=== PATIENT | female | born 1950 | race Caucasian/White ===

== ENCOUNTER 2018-02-14 09:44 | Day surgery (SDC) | payer OTHER ==
[2018-02-08 13:07] LABS: Absolute Lymphocytes (CBC) 1.9 K/uL (0.7-4.9); Absolute Monocytes 0.3 K/uL (0.1-1.3); Absolute Neutrophil 4.7 K/uL (1.8-8.0); Basophils % 0.9 % (0-1.3); Eosinophils % 0.9 % (0-4.4); Hematocrit 39.2 % (36.0-45.0); Lymphocytes % 27.4 % (15.3-44.8); MPV 9.7 fL (7.6-11.3); Monocytes % 4.9 % (3.3-12.3)
[2018-02-08 13:21] LABS: Potassium 3.4 mmol/L (3.5-5.1)
--- NOTE | 2018-02-08 13:24 | RAD REPORT ---
EXAM DESCRIPTION: RAD - Chest Pa And Lat (2 Views) - 02/08/2018 1:08 pm CLINICAL HISTORY: preop Chest pain. COMPARISON: Chest Pa And Lat (2 Views) dated 08/15/2017; CHEST PA AND LAT 2 VIEW dated 11/02/2011 FINDINGS: The lungs are clear. Moderate cardiomegaly. No displaced fractures. Screw is present in th e right sphenoid. IMPRESSION: Moderate cardiomegaly.
--- NOTE | 2018-02-08 18:37 | EKG ---
Test Date: 2018-02-08 Test Time: 12:55:54 Boot And Shoe Repairman: KARISSA MEASUREMENT RESULTS: Intervals: Rate: 63 AL: 162 QRSD: 90 QT: 444 QTc: 454 [place]: P: 50 AL: 162 QRS: 33 T: 62 INTERPRETIVE STATEMENTS: Normal sinus rhythm Normal ECG No previous ECG available for comparison Electronically Signed On 02-08-18 18:36:13 CDT by Rafael Key
[2018-02-14] MEDS ORDERED: Ringers Lactate 1,000 ML IV ONE (10:09)
[2018-02-14] MEDS ORDERED: CEFAZOLIN/SWI 1gm 1 GM/10 ML SYR ONE (10:09)
[2018-02-14] MEDS ORDERED: BUPIVACAINE 0.5% PF 10 ML VIAL ONE (10:11)
[2018-02-14] MEDS ORDERED: PROPOFOL 200 MG/20 ML VIAL IV ONE (10:33)
[2018-02-14] MEDS ORDERED: LIDOCAINE 1% MPF 5 ML VIAL ONE (10:34)
[2018-02-14] MEDS ORDERED: FENTANYL CITR 100 MCG/2 ML ONE (10:35)
[2018-02-14] MEDS ORDERED: ONDANSETRON HCL 40 MG/20 ML VIAL ONE (10:35)
[2018-02-14] MEDS ORDERED: GLYCOPYRROLATE 0.2 MG/ML SYR ONE (11:11)
[2018-02-14] MEDS ORDERED: EPHEDRINE SULF 50 MG/10 ML SYR ONE (11:14)
--- NOTE | 2018-02-14 11:55 | P.BOP ---
Preoperative diagnosis: tender recurrent back large subq mass Postoperative diagnosis: same, intramuscular mass Primary procedure: 1. Excisional biopsy tender recurrent back large intramuscular mass Secondary procedure: 5.5 x 7 x 2 cm Other procedure(s): 2. Layer closure Estimated blood loss: <20cc Specimen: mass with fascia of muscle Findings: deep mass involving fascia of muscle, partially intramuscular Anesthesia: General Complications: None Transferred to: Recovery Room Condition: Good
[2018-02-14] MEDS: MEPERIDINE HCL 50 MG/ML AMP ONE ×3 (12:00→12:10)
--- NOTE | 2018-02-14 23:27 | OP ---
Date of Procedure: 02/14/2018 Surgeon: Giancarlo Rausch MD Preoperative Diagnosis: Tender recurrent back large subcutaneous mass. Postoperative Diagnosis: Tender recurrent back large intramuscular mass. Procedures: 1.Excisional biopsy of a tender recurrent back large intramuscular mass about 5.5 x 7 x 2 cm. 2.A layered closure. Specimen: Mass with fascia of the muscle. Findings: This mass is started from the subcutaneous tissue, goes into the muscle, attached to the f ascia of the muscle, and then goes to the muscle and the back region. We were able to remove the mas s with the fascia and closed this in layers. Anesthesia: General, plus local. Indications: This is a case of a 67-year-old patient with a tender mass in the upper back pain. She claims that she many years ago it was excised and is coming back partially where the previous incisi on and partially in a new area. It is growing fast and she wants that excised. Benefits, alternativ es, and risks of excision were fully explained to the patient, which include but are not limited to i nfection, bleeding, damage to adjacent structures, anesthesia complication, recurrence, GA, and even . She also understands this may not relieve any symptoms, she might need more than one surgical intervention. She understood, signed a consent. Procedure In Detail: The area of concern was marked by me and the patient in the holding room. The patient was brought to the operating room, placed in supine position. Anesthesia was done without co mplication. The patient was placed in lateral decubitus position with proper protection. A time-out was called. The back area was prepped and draped in usual sterile fashion. A curvilinear incision was made in the skin to include the skin attached to it and the previous scar. Incision was carried down to deep subcutaneous tissue. We noticed this mass starting in the subcutaneous tissue, but it g oes between the muscle fiber penetrating into the fascia into the muscle fiber. We were able to care fully split that the muscle fiber without cutting it. We removed this mass from the intramuscular re gion, but we have to remove the fascia with it. The mass was completely excised. The area was irrig ated leaving a large gap in that area. So, we were trying to close this in layers. We used 0 chromi c to approximate the muscle, approximate the other part of the fascia, then subcutaneous tissue. I shimon mai closed the skin in a mattress suture fashion with 2-0 nylon multiple times. The patient tolerate d the procedure well. Sponge count and instrument counts were correct. The patient was sent to [facility] in stable condition. ZULEIMA/JOHNATHAN Voice ID: [id number] Report ID: [id number]
--- NOTE | 2018-02-14 23:33 | DS ---
Date of Discharge: 02/14/2018 Diagnosis: Tender recurrent large intramuscular mass in the back. Procedure: Excisional biopsy of tender intramuscular mass on the back with layered closure. Disposition: Home. Activity: As tolerated. No heavy lifting. Followup: Follow up in my office in 1 week. Call for appointment [phone]. Keep area dry for 48 ho urs, then may shower. Medications: Include Bactrim DS p.o. b.i.d. and Tylenol No. 3 q.4 hours p.r.n. pain. ZULEIMA/JOHNATHAN Voice ID: [id number] Report ID: [id number]
== END 2018-02-14 14:06 | disposition home or self-care (01) ==
LOC: OR 09:44
PROVIDERS: ATTEND Surgery
PROC: 0JB70ZZ Excision of Back Subcutaneous Tissue and Fascia, Open Approach (ICD-10-PCS; principal; 2018-02-14 12:00)
DX: D17.9 Benign lipomatous neoplasm, unspecified (principal); I10 Essential (primary) hypertension; Z82.49 Family history of ischemic heart disease and other diseases of the circulatory system
CPT/HCPCS: 21933; 36415; 71046; 80048; 85025; 88304; 93005; J0690; J2175; J2405; J3010; 88305

== ENCOUNTER 2019-11-18 09:17 | Inpatient (IN) | payer OTHER ==
--- NOTE | 2019-11-19 10:22 | R.PREADM ---
SCREENING DATE AND TIME 11/18/2019 10:13 (CDT) ANTICIPATED REHAB ADMISSION DATE 11/20/2019 REFERRING FACILITY [facility] REFERRAL DATE AND TIME 11/15/2019 12:00 (CDT) REFERRAL ROOM# [facility] 91J ACUTE ADMIT DATE 11/13/2019 HOSPITALIZED IN LAST 60 DAYS? No. Previous Rehabilitation(s): No. 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 Omar Barone M.D. MR# [id number] NAME JULIANN MERRITT ADDRESS [address] [place] [address] [facility] [id number] DATE OF 1950 AGE 69 SSN# [id number] GENDER female MARITAL STATUS RACE white PREF. LANGUAGE (IF NON-BAHRAINI) Armenian ADMIT FROM 02 - [facility] PRE-HOSPITAL LIVING SETTING 01 - Home (private home/apt. board/care, assisted living, shelter, transitional living) HOME TYPE AND DETAILS Type of home: single family house # of steps to enter the residence: 0 # of levels in the residence: 1 # of steps within the residence: 1 PRE-HOSPITAL LIVING WITH Other FAMILY SUPPORT Yes PRIMARY FAMILY CONTACT NAME Promise Simms PRIMARY FAMILY CONTACT PHONE PRIMARY FAMILY CONTACT RELATIONSHIP Daughter IS PRIMARY FAMILY CONTACT AUTH. REP.? no 1ST EMERGENCY CONTACT Promise Simms 1ST CONTACT PHONE 1ST CONTACT RELATIONSHIP Daughter IS 1ST CONTACT AUTH. REP.? no PHONE 2ND CONTACT ON ADM.? no PATIENT EMPLOYMENT STATUS Retired (for age) PATIENT EMPLOYER No Employer PAYOR INFORMATION: 1ST PAYOR NAME MEDICARE 1ST PAYOR PHONE 1ST PAYOR INJURY/ILLNESS DUE TO ACCIDENT? No ANOTHER [employer] RESPONSIBLE? No PRIMARY REHAB/ACUTE DIAGNOSIS: ONSET DATE 11/13/2019 REHAB IMPAIRMENT CATEGORY (ROSALES): 01 Stroke (STR) MEETS 60% rule AFFECTED EXTREMITIES: RLE, and RUE PRIMARY DIAGNOSIS-RELATED SURGERIES: No surgeries related to the primary diagnosis were performed. SUMMARY OF ACUTE HOSPITALIZATION: Pt. is a 69 yo Right-handed white female. On 11/13/2019 Pt. presented to [facility] with sudden onset of right-side weakness. Her impairment category is Stroke 01 - Right Body (Left Brain) (01.2). Pre-morbidly, Pt. was independent/mod-I in Transfers Control, Locomotion, and Self-Care; and she had good Balance, Safety Awareness, Social Cognition, and Communication. Currently, she has deficits of Transfers Control, Balance, Safety Awareness, Locomotion, Self-Care, S ocial Cognition, and Communication. Pt. is now referred to [facility] for acute in-patient rehabilitation in order to maximize patient's functional independence in activities of daily living, strength, ROM, and mobi lity. Patient has realistic goal of being discharged at assistance level 6-Елена to reside at Home with [facility] er. PAST MEDICAL HISTORY depression HTN arthritis thyroid nodule PAST SURGICAL HISTORY: Cholecystectomy HYSTERECTOMY MEDICATION ALLERGIES: CODEINE ENVIRONMENTAL ALLERGIES: None Known - Substance Allergies None Known - Other Allergies None Known CODE STATUS: Full code WEIGHT/HEIGHT/BMI: WEIGHT 135 lbs HEIGHT 5' 1" BMI 25.5 DIET: - Diet Type Regular - Diet - Solid Texture Regular - Diet - Liquid Texture Regular - Tube Feed N/A REVIEW OF SYSTEMS: - Gen Alert and awake Lying in bed No apparent distress Oriented to: person, time, and place - Vital Signs Vital signs stable, afebrile - CVS RRR VITAL SIGNS Temperature: 97.8 F SBP/DBP: 145/78 Pulse: 75 Resp: 20 Vital signs stable, afebrile MEDICATIONS/TREATMENT: Other- See attached MAR (Medication Administration Record). CURRENT SPHINCTER CONTROL: Pre-hospital bladder status: continent Pre-hospital bowel status: continent CURRENT LOCOMOTION STATUS: distance walked 50 feet DETAILED CURRENT FUNCTIONAL STATUS: - Walking score based on distance walked: 1(<=50ft) QI SCORES: - Self-Care A. Eating 05-Setup or clean-up assistance B. Oral hygiene 05-Setup or clean-up assistance C. Toileting hygiene 04-Supervision or touching assistance E. Shower/bathe self 03-Partial/moderate assistance F. Upper body dressing 05-Setup or clean-up assistance G. Lower body dressing 03-Partial/moderate assistance H. Putting on/taking off footwear 03-Partial/moderate assistance - Mobility A. Roll left and right 04-Supervision or touching assistance B. Sit to lying 03-Partial/moderate assistance C. Lying to sitting on side of bed 03-Partial/moderate assistance D. Sit to stand 03-Partial/moderate assistance E. Chair/[id number] transfer 03-Partial/moderate assistance F. Toilet transfer 03-Partial/moderate assistance G. Car transfer 88-Not attempted due to medical condition or safety concerns I. Walk 10 feet 04-Supervision or touching assistance J. Walk 50 feet with two turns 04-Supervision or touching assistance K. Walk 150 feet 88-Not attempted due to medical condition or safety concerns L. Walking 10 feet on uneven surfaces 88-Not attempted due to medical condition or safety concerns M. 1 step (curb) 88-Not attempted due to medical condition or safety concerns N. 4 steps 88-Not attempted due to medical condition or safety concerns O. 12 steps 88-Not attempted due to medical condition or safety concerns P. Picking up object 88-Not attempted due to medical condition or safety concerns - Bladder and Bowel Bladder continence 0-Always continent Bowel continence 0-Always continent - Endurance Poor - Balance Poor - Safety Awareness Poor CURRENT FUNC. DEFICITS: Self-Care, Mobility, Endurance, Balance, and Safety Awareness HISTORY OF FALLS. HAS THE PATIENT HAD TWO OR MORE FALLS IN THE PAST YEAR OR ANY FALL WITH INJURY IN T HE PAST YEAR?: Yes PRIOR SURGERY. DID THE PATIENT HAVE MAJOR SURGERY DURING THE 100 DAYS PRIOR TO ADMISSION?: No THERAPY NOTES FROM ACUTE CARE: Attached. SPECIAL NEEDS: - Safety Concerns Skin breakdown precautions needed due to skin breakdown risk PRECAUTIONS: - Weight Bearing Precaution WBAT both LE PATIENT NEEDS ACTIVE AND ONGOING THERAPEUTIC INTERVENTION OF MULTIPLE THERAPY DISCIPLINES, INCLUDING: - Occupational Therapy Cognitive Retraining. Visual Perceptual Training. - Dietary and Nutrition Adequate Nutrition. Nutritional Education. Nutritional Supplements. - Speech Therapy Cognitive Training. Expressive Language Skills. Memory Strategies. Receptive Language Skills. Speech Intelligibility Training. PATIENT NEEDS CLOSE MEDICAL SUPERVISION BY A REHABILITATION PHYSICIAN FOR: Coordination of Treatment Team PATIENT REQUIRES 24X7 REHAB NURSING FOR MEDICAL AND FUNCTIONAL MGT. OF THE FOLLOWING DEFICITS: Disease Management Medication Management Patient/Family Education Providing Safe Environment PATIENT REQUIRES INTENSIVE, COORDINATED INTERDISCIPLINARY APPROACH TO REHAB: Arranging Home Equipment/Services Discharge Planning Family Intervention/Training Bacon Slicer/Case Management PATIENT REHAB POTENTIAL: Sanjay MERRITT is able and expected to receive 3 hours of individualized therapy daily on at least 5 of ev claudia 7 days Sanjay MERRITT's prognosis for significant practical improvement within a reasonable period of time appear s Good Expected level of measurable improvement will be of a practical value to Sanjay MERRITT's functional capac ity or adaptations to impairments Has a viable Discharge Plan Medically appropriate; condition is sufficiently stable to participate in intensive rehab program DISCHARGE PLAN: - Estimated Length of Stay (days) 17. - Consensus on plan Discharge plan has not been discussed with primary caregiver. Patient/Family is in agreement with the plan. Primary caregiver is in agreement with the plan. - Patient/Family Goals Return home with assistance. - Planned Living Setting Upon Discharge Home, to live with Other. RECOMMENDED CARE LEVEL: IRF RECOMMENDATION DETAILS: Recommended Admission to Comprehensive Rehabilitation Program to Increase Functional [place] SCREENER'S COMPLETENESS CONFIRMATION: - Screening Confirmation The patient data collection on this preadmission screening form is finished PHYSICIANS REVIEW AND ADMISSION DETERMINATION Admit - Based on my review of the Pre-Admission Screening results, in my medical judgment and experie nce, I concur with the findings and recommend admission to [facility], as this patient requires an IRF level of care. SIGNATURE PANEL: Clinical Liaison - [electronically] signed by Margareth Beal RN on 11/19/2019 at 10:05 (CDT) Physician Reviewer - [electronically] signed by Dr. Omar Barone M.D. on 11/19/2019 at 10:20 (CDT )
--- OUTSIDE RECORDS SUMMARY | 2019-11-20 19:18 | XMS REPORT ---
:1950 Author Organization [facility] t Address [address] [place] [address] Care Team Providers Name Role Phone Singer LYMAN Attending Clinician Lemuel RIOS Attending Clinician Khalif RIOS Attending Clinician Khalif RIOS Admitting Clinician Problems This patient has no known problems. Allergies, Adverse Reactions, Alerts This patient has no known allergies or adverse reactions. Medications This patient has no known medications. Procedures This patient has no known procedures. Encounters Start End Encounter Admission Attending Care Care Encounter Source Date/Time Date/Time Type Type Clinicians Facility Department ID 2019-11-13 2019-11-20 [facility] WagnerShun quesada Meka [id number] 09:14:12 17:26:00 [id number] Results This patient has no known results.
--- OUTSIDE RECORDS SUMMARY | 2019-11-20 19:21 | XMS REPORT | Summary of Care ---
:1950 Author Organization [facility] - [facility] Address [address] [place] [address] Care Team Providers Name Role Phone Adin Velez Primary Care Provider Reason for Referral (Routine) Status Reason Specialty Diagnoses / Referred By Referred To Procedures Contact Contact New Request IM-CLINICAL CARDIAC Diagnoses Acute ischemic left DUSTY stroke Staton, Rubi ELECTROPHYSIOLOGY Procedures Discharge Follow-Up: Specialty Service IM-CLINICAL CARDIAC ELECTROPHYSIOLOGY; 1 [place] [address] (Routine) Status Reason Specialty Diagnoses / Referred By Contact Refe rred To Procedures Contact New Request Neurology Diagnoses Acute ischemic left DUSTY stroke Staton, Rubi Procedures CONSULT/REFERRAL NEURO PSYCH TESTING NEUROLOGY MD Israel [address], [place] [address] Phone: Other (Routine) Status Reason Specialty Diagnoses / Referred By Contact Refe rred To Procedures Contact New Request Diagnoses Acute ischemic left DUSTY stroke Staton, Rubi Staton, Rubi Procedures Discharge Follow-up: Specialty Provider RUBI STATON; Other - See Comment (next avalable ) MD Israel Wood MD [address] [place] [address] [place], [place] Phone: [phone] Fax: (Routine) Status Reason Specialty Diagnoses / Referred By Contact Refe rred To Procedures Contact New Request Diagnoses Acute ischemic left DUSTY stroke Rubi Staton Adin Velez Procedures Discharge Follow-up: PCP ADIN VELEZ; 3-5 Days MD Israel [address] [place] [phone] Phone: Phone: Fax: (Routine) Status Reason Specialty Diagnoses / Referred By Contact Refe rred To Procedures Contact New Request EEG Diagnoses Right sided weakness Tim Cuadra MD Procedures Electroencephalogram (EEG) - Duration of test: 20-[address] [place] [phone] Phone: MRI/CAT Scan (STAT) Status Reason Specialty Diagnoses / Referred By Referred To Procedures Contact Contact New Request Diagnostic Diagnoses Right sided weakness Tim Cuadra MD Radiology Procedures MR BRAIN WO CONTRAST [address] [place] [address] MRI/CAT Scan (STAT) Status Reason Specialty Diagnoses / Referred By Referred To Procedures Contact Contact New Request Diagnostic Diagnoses Confusion Onel Hdez MD Radiology Procedures CT ANGIOGRAM HEAD [address] [place] [address] MRI/CAT Scan (STAT) Status Reason Specialty Diagnoses / Referred By Referred To Procedures Contact Contact New Request Diagnostic Diagnoses Confusion Onel Hdez MD Radiology Procedures CT ANGIOGRAM NECK [address] [place] [address] Radiology Services (STAT) Status Reason Specialty Diagnoses / Referred By Referred To Procedures Contact Contact New Request Diagnostic Diagnoses Pain of right hip joint Shun Wagner, Radiology Procedures XR HIPS 3 VW BILATERAL DO [address] [facility] [address] [place] [address] MRI/CAT Scan (Routine) Status Reason Specialty Diagnoses / Referred By Referred To Procedures Contact Contact New Request Diagnostic Diagnoses Confusion Shun Wagner, Radiology Procedures CT HEAD WO CONTRAST DO [address] [place] [address]. [address] [place] [address] Radiology Services (Routine) Status Reason Specialty Diagnoses / Referred By Referred To Procedures Contact Contact New Request Diagnostic Diagnoses Confusion Shun Wagner, Radiology Procedures XR CHEST 1 VW DO [address] [place] [address]. [address] [place] [address] Reason for Visit Reason Comments Flank Pain right Auth/Cert Status Reason Specialty Diagnoses / Referred By Referred To Procedures Contact Contact Emergency Medicine Adc Em ergency Dept [address] [facility] [address] Fax: Encounter Details Date Type Department Care Team Description 11/13/2019 - Hospital Encounter Acute Care for the Arlette Wagner, [address] [place], [place] [id number] Confusion 11/20/2019 Elderly (FAUZIA 11D) Onel Hdez MD [address] [place] [phone] 2 [facility] Tim Cuadra MD [address] [place] [address]. [place] [address] [place] [address] Allergies Active Allergy Reactions Severity Noted Date Comments Codeine Rash 05/20/2015 documented as of this encounter (statuses as of 11/20/2019) Medications Medication Sig Dispensed Refills Start Date End Date Status Cholecalciferol, Take by 0 Act guerda Vitamin D3, mouth. (VITAMIN D3) 2,000 unit capsule Diclofenac Sodium 1 Apply 1 g to 0 Active % gel area(s) 2 (two) times daily as needed. aspirin 81 mg Take 1 tablet 60 tablet 4 11/21/2019 A ctive chewable by mouth tabletIndications: daily. Acute ischemic left DUSTY stroke atorvastatin 80 mg Take 1 tablet 60 tablet 2 11/20/2019 Active tabletIndications: by mouth at Acute ischemic left bedtime. DUSTY stroke clopidogreL 75 mg Take 1 tablet 90 tablet 0 11/21/2019 020 Active tabletIndications: by mouth Acute ischemic left daily for 90 DUSTY stroke days. FLUoxetine 20 mg Take 1 90 capsule 0 11/21/2019 02/19/2020 Active capsuleIndications: capsule by Acute ischemic left mouth daily DUSTY stroke for 90 days. lisinopril 5 mg Take 1 tablet 60 tablet 4 11/21/2019 Active tabletIndications: by mouth Acute ischemic left daily. DUSTY stroke thiamine 100 mg Take 1 tablet 60 tablet 1 11/21/2019 Active tabletIndications: by mouth Acute ischemic left daily. DUSTY stroke vitamin B-12 1,000 Take 1 tablet 60 tablet 2 11/21/2019 Active mcg by mouth tabletIndications: daily. Acute ischemic left DUSTY stroke carvedilol (COREG) 0 04/27/2015 11/20/2019 Discontinued 25 mg tablet lisinopril-hydrochl 0 04/27/2015 0 Discontinued orothiazide (ZIDHAZEL Lewis C) 20-12.5 mg per tablet amLODIPine 0 04/28/2015 11/20/2019 Discont inued (NORVASC) 10 mg tablet escitalopram 0 04/24/2015 11/20/2019 Disco ntinued oxalate (LEXAPRO) 10 mg tablet documented as of this encounter (statuses as of 11/20/2019) Active Problems Problem Noted Date AMS (altered mental status) 11/14/2019 Confusion 11/13/2019 Multiple thyroid nodules 05/20/2015 documented as of this encounter (statuses as of 11/20/2019) Social History Tobacco Use Types Packs/Day Years Used Date Never Smoker Smokeless Tobacco: Never Used Alcohol Use Drinks/Week oz/Week Comments Not Asked 0 Standard drinks or equivalent 0.0 Sex Assigned at Date Recorded Not on file Job Start Date Occupation Industry Not on file Not on file Not on file Travel History Travel Start Travel End No recent travel history available. COVID-19 Exposure Response Date Recorded In the last month, have you been in contact with No / Unsure 11/13/2019 10:27 AM CDT someone who was confirmed or suspected to have Coronavirus / COVID-19? documented as of this encounter Last Filed Vital Signs Vital Sign Reading Time Taken Comments Blood Pressure 129/62 11/20/2019 11:50 AM CDT Pulse 71 11/20/2019 11:50 AM CDT Temperature 36.2 C (97.1 F) 11/20/2019 11:50 AM CDT Respiratory Rate 18 11/20/2019 11:50 AM CDT Oxygen Saturation 96% 11/20/2019 11:50 AM CDT Inhaled Oxygen Concentration - - Weight 63.5 kg (139 lb 15.9 oz) 11/19/2019 12:34 PM CDT Height 154.9 cm (5' 1") 11/19/2019 12:34 PM CDT Body Mass Index 26.45 11/19/2019 12:34 PM CDT documented in this encounter Progress Notes Flip Marcos PTA - 11/20/2019 3:17 PM CDTPhysical Therapy Progress Note: Recommendations: Primary discharge plan: rehabilitation hospital Equipment recommendations: defer to facility PAIN: denies pain PRECAUTIONS: Weight Bearing Precaution: WBAT General Precautions: PPE used:Gloves and Surgical mask, General, Fall, oxygen: Room air Bracing/Cast present or required:N/A S: Patient agreeable to working with PT. O: Patient met Semi reclined in bed. Patient seen for the following: Bed mobility: Supine to sit: SBA/Setup Scooting to edge of bed: SBA/Setup Sit to supine: Minimal assist cued patient in safety when getting in and out of bed Transfers: Sit to stand: Minimal assist using Rolling Walker Stand to sit: CGA using Rolling Walker cued patient in hand placement during sitting and standing Gait: Assisted patient with ambulation as follows: 200 feet using Rolling Walker and CGA. cued patient in paced gait and avoidance of cheryl with environmental objects After session, patient Semi reclined in bed and call mishra provided. A: Patient tolerated session well. Patient progressing toward goals #1, #2, #3. P: PT will - progress strength, endurance, and gait until discharge Petra Marcos PTA Pager # [phone] Sup PT Fernando Todd Total Timed Tx Codes in Minutes: 15 Min Total Treatment Time in Minutes: 15 Min THalSindy kang RN - 11/20/2019 2:52 PM CDT Care Management Discharge Disposition Note (DCDN) 5-2-1 Interventions: Disease specific education;Intensive medication reconciliation/management;Teachback;Clear discharge plan;Follow-up appointments 5-2-1 Providers: Physician;Childrens Club Attendant/Supervisor [employer];Nurse 5-2-1 Patient Capacity Improvements: Transportation arrangements Discharge Plan for ongoing care and services: Rehabilitation Is this a new referral: Yes Patient Choice completed for referred services: Yes Discharge location(s): Rehabilitation location: [facility], [address], [place], [place] () [phone] (F) [phone] Patient choice completed for referred services: Yes Discussed with patient/patients family involved in decision making: Yes Patient or family caregiver understands, and agrees with discharge plan. Community resources/referrals made or provided to patient: No Transportation: Wheelchair Van Mental Status: Alert & Oriented to Person, Place Living Arrangement: Home: single story Other living arrangement: Address of living arrangement: [address] [place] [address] [place] [address] Funding Resources: Medicare A & B Nursing informed of discharge plan: Yes Expected discharge date: 11/20/2019 Time: Between 1630 and 1730 Additional Information: van scheduled with [employer] #[id number] CM/SW Name & Contact number: Sindy Sahu RN Ph. [phone] The following information has been provided to the facility noted above: reason for the patient discharge or transfer; patients physical and psychosocial status; summary of care, treatment, servicesprovided to patient; and the patient progress toward goals. David Tony MD - 11/19/2019 4:52 PM CDT STROKE PROGRESS NOTE DATE OF SERVICE: 11/19/2019 16:52 Day of Hospitalization: 5 CHIEF COMPLAINT: R sided weakness 24-HOUR EVENTS: Temp: [36.4 C (97.5 F)-36.7 C (98 F)] 36.5 C (97.7 F) Pulse: [57-81] 57 Resp: [14-23] 20 BP: (111-173)/(50-82) 117/50 - SERG pending - Started DAPT today for three months, cryptogenic stroke SUBJECTIVE: Stable from yesterday STROKE DOCUMENTATION NIH STROKE SCALE LOC: 0 Alert: Keenly Responsive LOC QUESTIONS: 0 Answers Both Questions Correctly LOC COMMANDS: 0 Performs Both Tasks Correctly BEST GAZE: 0 Normal VISUAL: 0 No Visual Loss FACIAL PALSY: 0 Normal MOTOR ARM-LEFT: 0 No Drift MOTOR ARM-RIGHT: 1 Drift MOTOR LEG-LEFT: 0 No Drift MOTOR LEG-RIGHT: 1 Drift LIMB ATAXIA: 0 Absent SENSORY: 0 Normal BEST LANGUAGE: 0 No Aphasia DYSARTHRIA: 0 Normal EXTINCTION AND INATTENTION (FORMERLY NEGLECT): 0 No Abnormalty STROKE SCALE INTERVAL: Other STROKE SCALE TOTAL SCORE: 2 OBJECTIVE: PHYSICAL EXAM Vitals: 11/19/19 1508 11/19/19 1513 11/19/19 1518 11/19/19 1625 BP: 111/57 117/50 Pulse: 67 65 71 57 Resp: 14 15 23 20 Temp: 36.5 C (97.7 F) TempSrc: Oral SpO2: 94% 93% 95% 98% Weight: Height: Neurologic Exam: Alert, oriented x4. Intact attention, language, and fund of knowledge. Cranial nerves II-XII: II: visual acuity Not tested II: visual corrales Full to confrontation II: pupils Equal, round, reactive to light III,IV,: extraocular muscles Full ROM V: facial sensation Normal to touch in V1-V3 bilat VII: facial muscle function Normal VIII: hearing Intact to finger rub bilaterally IX: palate elevation Normal IX,X: gag reflex Not tested XI: trapezius and SCM strength 5/5 XII: tongue strength Normal and midline Motor: Tone: normal Bulk: normal MOTOR EXAMINATION: STRENGTH Right Left Deltoid 5 5 Biceps 5 5 Triceps 5 5 Wrist extensors 5- 5 Interossei 5- 5 Hip flexors 4 5 Knee flexors (hamstring) 4- 5 Knee extensors (quadriceps) 3 5 Ankle dorsiflexors 2 5 Ankle plantar flexors 2 5 DTR's: Right Left Biceps 2+ 2+ Triceps 2+ 2+ Brachioradialis 2+ 2+ Patella 2+ 2+ Achilles 1+ 1+ Pathologic reflexes and signs: Shah: absent Babinski: +R toe dorsiflexion, LLE normal Cerebellar: Nystagmus: neg, FTN: nl, HTS:nl, Tremors: neg Sensory: Grossly intact to LT in all 4 extremities Gait: not assessed MEDICATIONS Current Facility-Administered Medications Medication Dose Route Frequency Last Rate Last Dose atorvastatin (LIPITOR) tablet 80 mg 80 mg Oral QHS lisinopril (PRINIVIL,ZESTRIL) tablet 5 mg 5 mg Oral DAILY 5 mg at 11/19/19 0829 thiamine (VITAMIN B1) tablet 100 mg 100 mg Oral DAILY 100 mg at 11/19/19 0829 vitamin B-12 (CYANOCOBALAMIN) tablet 1,000 mcg 1,000 mcg Oral DAILY 1,000 mcg at 11/19/19 0829 FLUoxetine (PROZAC) capsule 20 mg 20 mg Oral DAILY 20 mg at 11/19/19 0829 heparin (porcine) injection 5,000 Units 5,000 Units Subcutaneous Q12H 5,000 Units at 11/19/200729 ergocalciferol (vitamin d2) (CALCIFEROL) capsule 50,000 Units 50,000 Units Oral QWEEKLY 50,000 Units at 11/14/19 1731 Saline Bubble Study 6 mL Injection SEE-INSTRUCTIONS 6 mL at 11/14/19 1131 Saline Bubble Study 6 mL Injection SEE-INSTRUCTIONS 6 mL at 11/14/19 1130 acetaminophen (TYLENOL) tablet 650 mg 650 mg Oral Q6HPRN 650 mg at 11/14/19 1731 aspirin chewable tablet 81 mg 81 mg Oral DAILY 81 mg at 11/19/19 0829 famotidine (PEPCID) tablet 40 mg 40 mg Oral DAILY 40 mg at 11/19/19 0829 LABS No results found for this or any previous visit (from the past 24 hour(s)). STROKE LABS HGB A1C (% NGSP) Date Value 11/13/2019 5.7 LDL CHOL (mg/dL) Date Value 11/13/2019 134 CHOL (mg/dL) Date Value 11/13/2019 209 (H) TSH (mIU/L) Date Value 11/13/2019 2.12 Recent Labs 11/13/19 1011 TROPNI <0.012 RADIOLOGY No final results containing an impression from the past 48 hours were found. ASSESSMENT AND PLAN Nat Villanueva is a 69 year old female with PMHx of HTN, presenting with: R sided weakness 2/2 L cerebral infarction L DUSTY Acute encephalopathy likely 2/2 to vit b12 deficiency Vit D insufficiency Comment: mental status improving after vitamin B12. MRI showing Infarct in DUSTY territory. Cardiology placed ILR on 11/14. SERG pending now. Etiology: Cryptogenic as of now, intracranial LVO vs ESUS Plan: - Aspirin 81 mg and Plavix 75 mg for 3 m then ASA alone - Lipitor 80 mg daily - BP goal - normotension - continue Fluoxetine 20 mg daily. (No point to continue 2 SSRIs) - lisinopril 5 mg daily - c/w vit D qw and b12 supplementation - Pending rehab placement - SERG pending - GI Prophylaxis: famotidine - DVT Prophylaxis: heparin - Code status: full Seen and discussed with Faculty Dr. Milo Staton Stroke pager: [phone] Dvaid Silverio MD PGY3 Neurology Resident Doctor's Number : [id number] Pager Number: [phone] Hospital course: 69 y/o F with PMHx of HTN, presented with AMS and R arm and leg weakness. NIHSS 4, out of the windowfor TPA, CT head with mild chronic ischemic disease, CTA w no LVO or significant atherosclerosis. MRI brain showed a left DUSTY infarct explaining her right weakness. EEG showed focal L frontotemporal slowing. TTE normal, no shunt. Labs with low vit D and B12 (208). Mentation improved after vitamin b12 supplementation. ILR placed cardiology on 11/14. Pending SERG and rehab placement. Started on DAPT for three months then ASA alone. Sindy Rivera RN - 11/19/2019 4:42 PM CDTCare Management Continued Stay Assessment LOS Day: 5 Estimated /Planned Discharge Date: 11/19/19 Neurology/Stroke female 69 year old Date CM/SW last Face to Face completed with patient/family: 11/19/19 Funding source: Payor: MEDICARE / Plan: MEDICARE PART A & B / Product Type: Medicare / Insurance DC shoe lay out planner: N/A PCP:Adin Velez Patient/Family/MPOA/Caregiver Engaged with Transitional Care Plan: yes Patient/Family/MPOA/Caregiver concurs with proposed discharge plan: yes Name, Relationship to Patient and contact number of individual acting on behalf of the patient: patient Chief Complaint/Admitting Dx:Confusion Hospital Problems: Confusion AMS (altered mental status) Summary of hospital course: 69 y/o F with PMHx of HTN, presented with AMS and R arm and leg weakness. NIHSS 4, out of the window for TPA, CT head with mild chronic ischemic disease, CTA w no LVO or significant atherosclerosis. MRI brain showed a left DUSTY infarct explaining her right weakness. EEG showed focal L frontotemporal slowing. TTE normal, no shunt. Labs with low vit D and B12 (208). Mentation improved after vitamin b12 supplementation. ILR placed cardiology on 11/14. Pending SERG and rehab placement. CM/SW Interventions/Resources provided: 11/13 - Initial CM screening and initial discharge plan established, list of local rehabs provided topatient to review. 11/14 - [facility]. D/C packet initiated and placed on chart 11/15 - SW f/u with patient to review d/c plan 11/17 - CC attempted to f/u on referral, facility intake closed 07/28 holiday 11/18 - [facility] medical clearance pending SERG today. AHD's captured. CM/SW Interventions/Resources still needed: f/u for possible d/c to [facility] 11/19, continue with d/c planning Anticipated Discharge Destination: Rehab Facility If DC to home, who will support patient: N/A Anticipated DME needs: Defer to facility Referrals sent: yes If no, why/when will referral be sent: Accepted pending medical clearance Has patient been accepted: yes Revised plan if not accepted: N/A What is the clinical care happening right now that must be done in the hospital and only the hospital: SERG Medical clearance Please addend note following Length of Stay rounds and complete section below Were any recommendations made during LOS rounds on this patient:not applicable If yes, what new recommendations were made at LOS: JOSUE Wolf, FOUZIA [email or web address] O: [phone] C: [phone] (not for patient use) Niya Dias, ANALYSIS REPORTING DEVELOPER - 11/19/2019 1:06 PM [facility] Daily Progress Note - 11/19/2019 [id number] Nat Villanueva : 1950 Age: [age] year old Sex: female SUBJECTIVE: Patient awake/alert, sitting in bedside chair on ANALYSIS REPORTING DEVELOPER arrival. Patient agreeable to evaluation. Of note, patient reports that her also recently had stroke and is in rehab facility in [place]. OBJECTIVE: Nat Villanueva was seen for 1 ANALYSIS REPORTING DEVELOPER treatment session/s on this date. Treatment was provided due to aphasia. Nat Villanueva is a 69 year old female admitted for right sided weakness, transferred from [facility] and found to have had acute/subacute stroke. Mr Brain Wo Contrast Result Date: 11/15/2019 Acute/subacute infarct in the left DUSTY territory Background moderate microvascular ischemia changes and remote basal ganglia lacunar infarcts. Preliminary Report Dictated by Resident: Zayra Stapleton Report change I, Matthew Garrett reviewed this study and agree with the above report with the following minor modifications, acute-subacute left DUSTY territory infarct. Dr. Loredo was notified of the report change at 10:00 AM on 11/15/2019 I, Matthew Garrett MD., have reviewed this study and agree with the above report. Progress on short term goals was as follows: Verbal Expression: - Patient will describe complex action pictures with minimal cues 80% of the time: Goal not directlyaddressed this date. (continue goal) - Patient will list at least 5 distinctive features of presented objects (i.e., color, shape, function, size, etc.) with minimal cues 80% of the time: Patient required min-mod cues to list 4-5 features. Patient often able to state 2-3 features of object, but required additional cues/prompting to provide additional information. (progressing, continue goal) - Patient will name at least 10 items in given categories in 1 minute with min cues: Patient able tostate an avg of 9.3 words/min in given concrete categories with mod cues. Patient usually started with 3-4 items quickly at onset of prompt, but then became stuck saying "I don't know. I can't think." Would continue to name additional 1-2 at a time with cues. (progressing, continue goal) Auditory Comprehension: - Patient will follow 2-3 step directions utilizing objects with minimal cues 80% of the time: Goal not addressed this date. (progressing, continue goal) Reading: - Patient will demonstrate 80 % accurate oral reading of sentence-level material given min cues: Patient demonstrated 100% accurate oral reading of short sentences today. (goal met) - Patient will demonstrate 80 % accurate reading comprehension of sentence-level material given min cues: Patient followed 1 step/1 sentence written directions with 100% accuracy without cues. (goal met, advance to short paragraph length material) Writing: - Patient will participate in diagnostic therapy to assess writing skills: Patient was able to writeher name, , address, sentence to dictation, and spontaneous sentence legibly and without spellingor grammatical errors. Information was more on right side of the page and with slightly reduced spac ing, but functional. (goal met) ASSESSMENT: Nat Villanueva demonstrated progress on speech-language goals addressed as stated above. She continues to present with a mild mixed receptive-expressive aphasia, possibly transcortical motor subtype, characterized by reduced verbal output, intact repetition, intact comprehension for simple information. Patient demonstrates difficulty with producing longer, grammatically correct/complete sentences andfollowing 2-3/complex commands. However, patient continues to improve in all areas of speech-language. She would benefit from continued ANALYSIS REPORTING DEVELOPER services while in-house and at d/c facility. PLAN: 1. Recommend patient continue a regular-textured diet with thin liquids and universal swallow precautions: sit fully upright/chair and remain upright for 30 minutes after meals 2. Recommend ANALYSIS REPORTING DEVELOPER therapy 2-5x/wk for 15-45 min/session while in-house to address the goals listed above: 3. Discharge recommendation: Recommend continued ANALYSIS REPORTING DEVELOPER therapy at inpt rehab facility. Niya Villareal MS, [facility]-ANALYSIS REPORTING DEVELOPER Speech-Language Pathologist Office: [phone] Pager: [phone] signed by Niya Villareal, ANALYSIS REPORTING DEVELOPER at 11/19/2019 1:30 PM HANGTMVivian valadez RN - 11/19/2019 11:09 AM CDTCare Coordinator Note: CC received notification from Edilma [phone] [address] that patient has been accepted to [facility] inpatient[facility]hab. Edilma notified that patient was scheduled for a SERG today. CC/SW will notify Edilma when discharge date and time is determined by medical team. Vivian SALAS, RN Insurance Sales Professional, Care Management Dept. [email or web address] (O) [phone] (C) [phone] (not for patient use) Vivian Maciel RN - 11/18/2019 2:55 PM CDTCare Coordinator Note: CC contacted [address] [address] for update on patient acceptance to facility. The installation coordinator and director are not available today r/t the . CC to f/u tomorrow 11/19/2019 for update regarding acceptance to inpatient rehab. Vivian SALAS, RN Insurance Sales Professional, Care Management Dept. [email or web address] (O) [phone] (C) [phone] (not for patient use) eepa Pichardo OT - 11/18/2019 12:12 PM CDTOCCUPATIONAL THERAPY NOTE: Discharge Recommendations: Primary Discharge Plan: Rehabilitation hospital If patient to discharge home today, recommend Home safety evaluation, Outpatient OT and return to prior living situation with assist/setup for B/IADLs as needed Equipment Recommendations: Grab bars, Hand held shower, Tub transfer bench Precautions: Weight bearing status: NA General: PPE Utilized: Gloves and Surgical mask and Fall Bracing: N/A S: Patient agreeable to participate in occupational therapy. Patient voices gradual improvement in RUE strength. PAIN Patient denies pain before or after session. O: Patient found semireclining in bed. Patient seen this date for the following: ADL Training HOB elevated, sup -> sit with SBA but requires min assist to reposition at EOB due to R LE weakness. UB Dressing: SBA/Setup. Patient setup with clothing and educated about compensatory dressing strategies in light of R UE weakness. Patient dons pullover shirt while seated EOB unsupported. LB Dressing: CGA. Patient setup with clothing and educated about compensatory dressing strategies as well as safetystrategies during dynamic standing balance in light of R LE weakness Patient threads pants over RY LE with extra time, performs sit <-> stand using RW, and manipulates clothing over hips and buttocks with extra time. Patient educated about clothing alternatives to increase independence in the future. Patient dons socks prior to standing with hip on trunk flexion (figure 4) and using RY UE to assist with positioning R LE. Patient amb to/from bathroom using RW and verbal cues throughout for safety and body mechanics during transitions. Toilet Transfer: SBA/Setup. Patient provided with verbal cues for body mechanics, safety and use of L grab bar Toileting Hygiene: SBA/Setup. Patient manipulates pants, voids (+) BM & urine, and performs tania care while seated. Patient amb to sink using RW. Grooming: SBA/Setup. Patient stands at sink and washes hands. Patient returns to room and bedside chair using RW and verbal cues for safety. Feeding: SBA/setup Patient performs feeding task once condiments and soda can opened for patient. Patient left sitting upright in bedside chair with call mishra in reach. R UE elevated. Nursing and PCT notified of patient positioning. Patient instructed to call nursing for return to bed. A: Patient exhibited Good participation in therapy and responded well to treatment this session. Patient met goal(s) 1, 2, 3 and 4. Patient with functional R UE AROM. Will discontinue goal 5. R UE gross motor control and R LE weakness remains a limiting factor. Revised goal 1: Patient will perform toilet transfer with modified independence for safety considerations Revised goal 4: Patient will perform toileting hygiene, including clothing management, with modifiedindependence for safety considerations. New goal #7: patient will demonstrate independence with R UE strengthening HEP. P: Daily living activities, Therapeutic exercises and Neuromuscular Re-Education Yuliana Pichardo, OTR, OTD, C/NDT Pager [phone] Total Timed Treatment Codes: 23 Min Total Treatment Time: 23 Min Charlie Santiago MBBS - 11/18/2019 8:18 AM CDT STROKE PROGRESS NOTE DATE OF SERVICE: 11/18/2019 08:18 Day of Hospitalization: 4 CHIEF COMPLAINT: R sided weakness 24-HOUR EVENTS: -AFVSS. BP: 145-161/51-76. -Started thiamine and vit B12 SUBJECTIVE: Patient reports feeling the same with may be some improvement in her RLE weakness STROKE DOCUMENTATION NIH STROKE SCALE LOC: 0 Alert: Keenly Responsive LOC QUESTIONS: 0 Answers Both Questions Correctly LOC COMMANDS: 0 Performs Both Tasks Correctly BEST GAZE: 0 Normal VISUAL: 0 No Visual Loss FACIAL PALSY: 0 Normal MOTOR ARM-LEFT: 0 No Drift MOTOR ARM-RIGHT: 1 Drift MOTOR LEG-LEFT: 0 No Drift MOTOR LEG-RIGHT: 1 Drift LIMB ATAXIA: 0 Absent SENSORY: 0 Normal BEST LANGUAGE: 0 No Aphasia DYSARTHRIA: 0 Normal EXTINCTION AND INATTENTION (FORMERLY NEGLECT): 0 No Abnormalty STROKE SCALE INTERVAL: Other STROKE SCALE TOTAL SCORE: 2 OBJECTIVE: PHYSICAL EXAM Vitals: 11/17/19199911/17/19 2326 11/18/19 0352 11/18/19 0526 BP: (!) 149/65 (!) 145/69 (!) 145/73 Pulse: 75 74 75 Resp: 20 20 20 Temp: 36.8 C (98.2 F) 36.6 C (97.9 F) 36.6 C (97.8 F) TempSrc: Oral Oral Oral SpO2: 96% 95% 96% Weight: 63.5 kg (139 lb 15.9 oz) Height: Neurologic Exam: Alert, oriented x4. Intact attention, language, and fund of knowledge. Cranial nerves II-XII: II: visual acuity Not tested II: visual corrales Full to confrontation II: pupils Equal, round, reactive to light III,IV,: extraocular muscles Full ROM V: facial sensation Normal to touch in V1-V3 bilat VII: facial muscle function Normal VIII: hearing Intact to finger rub bilaterally IX: palate elevation Normal IX,X: gag reflex Not tested XI: trapezius and SCM strength 5/5 XII: tongue strength Normal and midline Motor: Tone: normal Bulk: normal MOTOR EXAMINATION: STRENGTH Right Left Deltoid 5 5 Biceps 5 5 Triceps 5 5 Wrist extensors 5- 5 Interossei 5- 5 Hip flexors 4 5 Knee flexors (hamstring) 4- 5 Knee extensors (quadriceps) 3 5 Ankle dorsiflexors 2 5 Ankle plantar flexors 2 5 DTR's: Right Left Biceps 2+ 2+ Triceps 2+ 2+ Brachioradialis 2+ 2+ Patella 2+ 2+ Achilles 1+ 1+ Pathologic reflexes and signs: Shah: absent Babinski: +R toe dorsiflexion, LLE normal Cerebellar: Nystagmus: neg, FTN: nl, HTS:nl, Tremors: neg Sensory: Grossly intact to LT in all 4 extremities Gait: not assessed MEDICATIONS Current Facility-Administered Medications Medication Dose Route Frequency Last Rate Last Dose thiamine (VITAMIN B1) tablet 100 mg 100 mg Oral DAILY vitamin B-12 (CYANOCOBALAMIN) tablet 1,000 mcg 1,000 mcg Oral DAILY lisinopril (PRINIVIL,ZESTRIL) tablet 2.5 mg 2.5 mg Oral DAILY 2.5 mg at 11/17/19 0851 FLUoxetine (PROZAC) capsule 20 mg 20 mg Oral DAILY 20 mg at 11/17/19 0851 heparin (porcine) injection 5,000 Units 5,000 Units Subcutaneous Q12H 5,000 Units at ergocalciferol (vitamin d2) (CALCIFEROL) capsule 50,000 Units 50,000 Units Oral QWEEKLY 50,000 Units at 11/14/19 1731 Saline Bubble Study 6 mL Injection SEE-INSTRUCTIONS 6 mL at 11/14/19 1131 Saline Bubble Study 6 mL Injection SEE-INSTRUCTIONS 6 mL at 11/14/19 1130 acetaminophen (TYLENOL) tablet 650 mg 650 mg Oral Q6HPRN 650 mg at 11/14/19 1731 aspirin chewable tablet 81 mg 81 mg Oral DAILY 81 mg at 11/17/19 0851 atorvastatin (LIPITOR) tablet 40 mg 40 mg Oral QHS 40 mg at 11/17/19 2226 escitalopram oxalate (LEXAPRO) tablet 20 mg 20 mg Oral DAILY 20 mg at 11/17/19 0851 famotidine (PEPCID) tablet 40 mg 40 mg Oral DAILY 40 mg at 11/17/19 0851 LABS No results found for this or any previous visit (from the past 24 hour(s)). STROKE LABS HGB A1C (% NGSP) Date Value 11/13/2019 5.7 LDL CHOL (mg/dL) Date Value 11/13/2019 134 CHOL (mg/dL) Date Value 11/13/2019 209 (H) TSH (mIU/L) Date Value 11/13/2019 2.12 Recent Labs 11/13/19 1011 TROPNI <0.012 RADIOLOGY No final results containing an impression from the past 48 hours were found. ASSESSMENT AND PLAN Nat Villanueva is a 69 year old female with PMHx of HTN, presenting with: R sided weakness 2/2 L cerebral infarction L DUSTY Acute encephalopathy likely 2/2 to vit b12 deficiency Vit D insufficiency Comment: mental status improving after vitamin B12. MRI showing Infarct in DUSTY territory. Cardiology placed ILR on 11/14. SERG pending now. Plan: - Aspirin 81 daily - Lipitor 40mg daily - BP goal - normotension - continue Fluoxetine 20 mg daily. (No point to continue 2 SSRIs) - increased lisinopril to 5 mg daily - c/w vit D qw and b12 supplementation - Pending rehab placement -SERG tomorrow - GI Prophylaxis: famotidine - DVT Prophylaxis: heparin - Code status: full Faculty Dr. Sarmiento Stroke pager: [phone] Charlie Anaya MD PGY-3, Neurology Pager: [phone] Hospital course: 69 y/o F with PMHx of HTN, presented with AMS and R arm and leg weakness. NIHSS 4, out of the windowfor TPA, CT head with mild chronic ischemic disease, CTA w no LVO or significant atherosclerosis. MRI brain showed a left DUSTY infarct explaining her right weakness. EEG showed focal L frontotemporal slowing. TTE normal, no shunt. Labs with low vit D and B12 (208). Mentation improved after vitamin b12 supplementation. ILR placed cardiology on 11/14. Pending SERG and rehab placement. Associated attestation - Robert Sarmiento MD - 11/18/2019 12:36 PM CDTI personally examined this patient today. In addition, I actively participated in the decision making process, and helped formulate the assessment and plan/recommendations written in the resident's note. Farhat Schwartz MD - 11/17/2019 8:16 AM CDT STROKE PROGRESS NOTE DATE OF SERVICE: 11/17/2019 11:21 Day of Hospitalization: 3 CHIEF COMPLAINT: R sided weakness 24-HOUR EVENTS: - no events SUBJECTIVE: Patient today states she is feeling well, reports her right sided weakness is getting better. Deniesany other complaints at this time. STROKE DOCUMENTATION NIH STROKE SCALE LOC: 0 Alert: Keenly Responsive LOC QUESTIONS: 0 Answers Both Questions Correctly LOC COMMANDS: 0 Performs Both Tasks Correctly BEST GAZE: 0 Normal VISUAL: 0 No Visual Loss FACIAL PALSY: 0 Normal MOTOR ARM-LEFT: 0 No Drift MOTOR ARM-RIGHT: 1 Drift MOTOR LEG-LEFT: 0 No Drift MOTOR LEG-RIGHT: 1 Drift LIMB ATAXIA: 0 Absent SENSORY: 0 Normal BEST LANGUAGE: 0 No Aphasia DYSARTHRIA: 0 Normal EXTINCTION AND INATTENTION (FORMERLY NEGLECT): 0 No Abnormalty STROKE SCALE INTERVAL: Other STROKE SCALE TOTAL SCORE: 2 OBJECTIVE: PHYSICAL EXAM Vitals: 11/16/19 2000 11/17/19 0000 11/17/19 0400 11/17/19 0915 BP: 139/64 139/69 (!) 140/59 (!) 150/57 Pulse: 71 68 71 78 Resp: 18 18 18 18 Temp: 36.7 C (98.1 F) 36.7 C (98 F) 36.6 C (97.9 F) 36.3 C (97.4 F) TempSrc: Oral Oral Oral Oral SpO2: 95% 96% 96% 98% Weight: Height: General: Alert and oriented x 3 (person, place and month/year); no apparent distress. Mental Status: Consciousness, attention, concentration: follows simple and complex commands. Improved Speech/ Language: intact to comprehension, repetition and naming 3/3, +fluency normal. 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 Remote and recent memory: poor Cranial Nerves: I. Not tested II. PERRL. FOV full to confrontation. III. IV., . Extraocular movements intact without nystagmus. V. Normal sensation in V1-3 distributions. VII. No facial droop noted. VIII. Hearing intact. IX., X. Palatal elevation present symmetrically. XI. Normal Strength of sternocleidomastoid and trapezius muscles bilaterally. XII. Tongue in midline. Motor: Tone: normal Bulk: normal STRENGTH Right Left Deltoid 4 5- Biceps 4 5- Triceps 4 5- Wrist extensors 4 5- Interossei 4 5- Hip flexors 4- 5 Knee flexors (hamstring) 3+ 5 Knee extensors(quadriceps) 3+ 5 Ankle dorsiflexors 3+ 5 Ankle plantarflexors 3+ 5 DTR's: Right Left Biceps 2+ 2+ Triceps 2+ 2+ Brachioradialis 2+ 2+ Patella 2+ 2+ Achilles 1+ 1+ Pathologic reflexes and signs: Shah: absent Babinski: +R toe dorsiflexion, LLE normal Cerebellar: Nystagmus: neg, FTN: nl, HTS:nl, Tremors: neg Sensory: LT: intact, temperature: intact, Vibration: intact Gait: unable to assess Lungs: clear to auscultation bilaterally Cardio: S1, S2 normal Extremities:no cyanosis,clubbing or edema, Neck:supple,no carotid bruit,no JVD, no meningeal signs Abdomen: soft; non-tender; non-distended MEDICATIONS Current Facility-Administered Medications Medication Dose Route Frequency Last Rate Last Dose lisinopril (PRINIVIL,ZESTRIL) tablet 2.5 mg 2.5 mg Oral DAILY 2.5 mg at 11/17/19 0851 FLUoxetine (PROZAC) capsule 20 mg 20 mg Oral DAILY 20 mg at 11/17/19 0851 heparin (porcine) injection 5,000 Units 5,000 Units Subcutaneous Q12H 5,000 Units at vitamin B-12 (CYANOCOBALAMIN) tablet 500 mcg 500 mcg Oral DAILY 500 mcg at 11/17/19 0852 ergocalciferol (vitamin d2) (CALCIFEROL) capsule 50,000 Units 50,000 Units Oral QWEEKLY 50,000 Units at 11/14/19 1731 Saline Bubble Study 6 mL Injection SEE-INSTRUCTIONS 6 mL at 11/14/19 1131 Saline Bubble Study 6 mL Injection SEE-INSTRUCTIONS 6 mL at 11/14/19 1130 acetaminophen (TYLENOL) tablet 650 mg 650 mg Oral Q6HPRN 650 mg at 11/14/19 1731 aspirin chewable tablet 81 mg 81 mg Oral DAILY 81 mg at 11/17/19 0851 atorvastatin (LIPITOR) tablet 40 mg 40 mg Oral QHS 40 mg at 11/16/192013 escitalopram oxalate (LEXAPRO) tablet 20 mg 20 mg Oral DAILY 20 mg at 11/17/19 0851 famotidine (PEPCID) tablet 40 mg 40 mg Oral DAILY 40 mg at 11/17/19 0851 LABS No results found for this or any previous visit (from the past 24 hour(s)). STROKE LABS HGB A1C (% NGSP) Date Value 11/13/2019 5.7 LDL CHOL (mg/dL) Date Value 11/13/2019 134 CHOL (mg/dL) Date Value 11/13/2019 209 (H) TSH (mIU/L) Date Value 11/13/2019 2.12 Recent Labs 11/13/19 1011 TROPNI <0.012 RADIOLOGY No final results containing an impression from the past 48 hours were found. ASSESSMENT AND PLAN Nat Villanueva is a 69 year old female with PMHx of HTN, presenting with: R sided weakness 2/2 L cerebral infarction L DUSYT Acute encephalopathy likely 2/2 to vit b12 deficiency, resolved Comment: mental status improving after vitamin B12. MRI showing Infarct in DUSTY territory. Cardiology placed ILR on 11/14. Plan: - Aspirin 81 daily - Lipitor 40mg daily - BP goal - normotension - c/w Lexapro 20 daily. Add fluoxetine. Its been showed to improved weakness in stroke patients. - c/w lisinopril 2.5 mg QD - c/w vit D qw and b12 supplementation - SERG on Monday. Afterwards can go to rehab if SERG unremarkable. - GI Prophylaxis: famotidine - DVT Prophylaxis: heparin - Code status: full Discussed and seen with Dr. Sarmiento, Neurology Faculty Stroke pager: [phone] Farhat Loredo MD PGY-2 Neurology Pager [phone] Cell # [phone] Hospital course: 69 y/o F with PMHx of HTN, presented with AMS and R arm and leg weakness. NIHSS 4, out of the windowfor TPA, CT head with mild chronic ischemic disease, CTA w no LVO or significant atherosclerosis. MRI brain showed a left DUSTY infarct explaining her right weakness. EEG showed focal L frontotemporal slowing. TTE normal, no shunt. Labs with low vit D and B12 (208). Mentation improved after vitamin b12 supplementation. ILR placed cardiology on 11/14. Pending SERG and rehab placement. Associated attestation - Robert Sarmiento MD - 11/17/2019 12:08 PM CDTI personally examined this patient today. In addition, I actively participated in the decision making process, and helped formulate the assessment and plan/recommendations written in the resident's note. Niya Villareal, ANALYSIS REPORTING DEVELOPER - 11/16/2019 3:21 PM [facility] Daily Progress Note - 11/16/2019 [id number] Nat Villanueva : 1950 Age: [age] year old Sex: female SUBJECTIVE: Patient sleeping upon ANALYSIS REPORTING DEVELOPER arrival. Easily woke and agreed to therapy with encouragement. Patient states that her speech is "good." OBJECTIVE: Nat Villanueva was seen for 1 ANALYSIS REPORTING DEVELOPER treatment session/s on this date. Treatment was provided due to aphasia. Nat Villanueva is a 69 year old female admitted for right sided weakness, transferred from [facility] and being worked up for stroke, with PMH as stated below. Mr Brain Wo Contrast Result Date: 11/15/2019 Acute/subacute infarct in the left DUSTY territory Background moderate microvascular ischemia changes and remote basal ganglia lacunar infarcts. Preliminary Report Dictated by Resident: Zayra Stapleton Report change IMatthew reviewed this study and agree with the above report with the following minor modifications, acute-subacute left DUSTY territory infarct. Dr. Loredo was notified of the report change at 10:00 AM on 11/15/2019 IMatthew MD., have reviewed this study and agree with the above report. Progress on short term goals was as follows: Verbal Expression: - Patient will describe complex action pictures with minimal cues 80% of the time: Goal not directlyaddressed this date. (continue goal) - Patient will list at least 5 distinctive features of presented objects (i.e., color, shape, function, size, etc.) with minimal cues 80% of the time: Patient required mod cues to list 3-4 features. Patient often able to state one feature of object, but required constant cues/prompting to provide additional information. (progressing, continue goal) - Patient will name at least 10 items in given categories in 1 minute with min cues: Patient able tostate an avg of 7.3 words/min in given concrete categories with mod cues. Patient usually started with 3-4 items quickly at onset of prompt, but then became stuck saying "I don't know. I can't think." Would continue to name additional 1-2 at a time with cues. (progressing, continue goal) Auditory Comprehension: - Patient will follow 2-3 step directions utilizing objects with minimal cues 80% of the time: Patient followed 2 step commands with body parts with 95% accuracy given min to no cues. Patient spontaneously used strategy of self- repetition of command prior to carrying out task. (progressing, continuegoal) Reading: - Patient will demonstrate 80 % accurate oral reading of sentence-level material given min cues: Patient demonstrated 100% accurate oral reading of short sentences today. (progressing, continue goal) - Patient will demonstrate 80 % accurate reading comprehension of sentence-level material given min cues: Patient ID'ed the correct sentence with minor detail differences in field of 2 to match given picture with 100% accuracy given min cue for 1/16 items. (progressing, continue goal) Writing: - Patient will participate in diagnostic therapy to assess writing skills: Goal not addressed this date. ASSESSMENT: Nat Villanueva demonstrated progress on speech-language goals addressed as stated above. She continues to present with a mild mixed receptive-expressive aphasia, possibly transcortical motor subtype, characterized by reduced verbal output, intact repetition, intact comprehension for simple information. Patient demonstrates difficulty with producing longer, grammatically correct/complete sentences andfollowing 2-3/complex commands. Patient demonstrates commensurate written language impairments. However, she is able to functionally communicate basic needs/wants and auditory and written comprehension appears slightly improved today compared to initial evaluation. Throughout session ANALYSIS REPORTING DEVELOPER also discussed strategies for word-finding and comprehension as well as tasks patient can work on independentlyto work on communication skills. Patient verbalized comprehension of all information discussed. She would benefit from continued ANALYSIS REPORTING DEVELOPER services while in-house and at d/c facility. PLAN: 1. Recommend patient continue a regular-textured diet with thin liquids and universal swallow precautions: sit fully upright/chair and remain upright for 30 minutes after meals 2. Recommend ANALYSIS REPORTING DEVELOPER therapy 2-5x/wk for 15-45 min/session while in-house to address the goals listed above: 3. Discharge recommendation: Recommend continued ANALYSIS REPORTING DEVELOPER therapy at inpt rehab facility. Niya Villareal MS, [facility]-ANALYSIS REPORTING DEVELOPER Speech-Language Pathologist Office: [phone] Pager: [phone] Sera Castano SW - 11/16/2019 10:25 AM CDTSocial Work note: Clinicals rec'v at [facility], [address], [place], [place](Ph) [phone] (F) [phone]-their director requested patient work with Speech and PT/OT more prior [facility]. Possible acceptance on Monday, 11/17 MARÍA communicated with both Speech and PT to request patient be seen over this weekend. MARÍA faxed today's PT note MARÍA met with patient this morning to inquire about sending clinicals to another rehab for quicker acceptance and discharge from [facility]; however, patient declined and stated she prefers to discharge to [facility] Packet on unit includes: -MOT signed by transferring MD -completed/signed COVID (-) screen -incomplete WC van voucher (voucher # [id number]) Marielena Beal [facility] [phone] (personal cell #/not for patient use) [address] [place] [address] Care Mgmt Dept Missy Laws MBBS - 11/16/2019 10:14 AM CDT STROKE PROGRESS NOTE DATE OF SERVICE: 11/16/2019 10:15 Day of Hospitalization: 2 CHIEF COMPLAINT: R sided weakness 24-HOUR EVENTS: AF, BP trending 140's -160's ILR placed yesterday, received Vancomycin X 1 post procedure No acute events overnight SUBJECTIVE: Patient today states she is feeling well, reports her right sided weakness is getting better. Deniesany other complaints at this time. STROKE DOCUMENTATION NIH STROKE SCALE LOC: 0 Alert: Keenly Responsive LOC QUESTIONS: 0 Answers Both Questions Correctly LOC COMMANDS: 0 Performs Both Tasks Correctly BEST GAZE: 0 Normal VISUAL: 0 No Visual Loss FACIAL PALSY: 0 Normal MOTOR ARM-LEFT: 0 No Drift MOTOR ARM-RIGHT: 2 Some Effort Against [place] MOTOR LEG-LEFT: 0 No Drift MOTOR LEG-RIGHT: 2 Some Effort Against [place] LIMB ATAXIA: 0 Absent SENSORY: 0 Normal BEST LANGUAGE: 0 No Aphasia DYSARTHRIA: 0 Normal EXTINCTION AND INATTENTION (FORMERLY NEGLECT): 0 No Abnormalty STROKE SCALE INTERVAL: Other STROKE SCALE TOTAL SCORE: 4 OBJECTIVE: PHYSICAL EXAM Vitals: 11/15/19199911/15/19 2344 11/16/19 0400 11/16/19 0926 BP: 135/65 (!) 145/73 (!) 167/63 (!) 147/66 Pulse: 79 69 64 74 Resp: 18 18 18 18 Temp: 36.6 C (97.8 F) 36.7 C (98.1 F) 36.6 C (97.8 F) 36.8 C (98.2 F) TempSrc: Oral Oral Oral Oral SpO2: 96% 95% 94% 96% Weight: Height: General: Alert and oriented x 3 (person, place and month/year); no apparent distress. Mental Status: Consciousness, attention, concentration: follows simple and complex commands. Improved Speech/ Language: intact to comprehension, repetition and naming 3/3, +fluency normal (improved). 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 Remote and recent memory: poor Cranial Nerves: I. Not tested II. PERRL. FOV full to confrontation. III. IV., . Extraocular movements intact without nystagmus. V. Normal sensation in V1-3 distributions. VII. No facial droop noted. VIII. Hearing intact. IX., X. Palatal elevation present symmetrically. XI. Normal Strength of sternocleidomastoid and trapezius muscles bilaterally. XII. Tongue in midline. Motor: Tone: normal Bulk: normal STRENGTH Right Left Deltoid 3 5- Biceps 4 5- Triceps 4 5- Wrist extensors 3 5- Interossei 3 5- Hip flexors 2 5 Knee flexors (hamstring) 2+ 5 Knee extensors(quadriceps) 2+ 5 Ankle dorsiflexors 2+ 5 Ankle plantarflexors 2+ 5 DTR's: Right Left Biceps 2+ 2+ Triceps 2+ 2+ Brachioradialis 2+ 2+ Patella 2+ 2+ Achilles 1+ 1+ Pathologic reflexes and signs: Shah: absent Babinski: +R toe dorsiflexion, LLE normal Cerebellar: Nystagmus: neg, FTN: nl, HTS:nl, Tremors: neg Sensory: LT: intact, temperature: intact, Vibration: intact Gait: unable to assess Lungs: clear to auscultation bilaterally Cardio: S1, S2 normal Extremities:no cyanosis,clubbing or edema, Neck:supple,no carotid bruit,no JVD, no meningeal signs Abdomen: soft; non-tender; non-distended MEDICATIONS Current Facility-Administered Medications Medication Dose Route Frequency Last Rate Last Dose FLUoxetine (PROZAC) capsule 20 mg 20 mg Oral DAILY 20 mg at 11/16/19 0833 heparin (porcine) injection 5,000 Units 5,000 Units Subcutaneous Q12H vitamin B-12 (CYANOCOBALAMIN) tablet 500 mcg 500 mcg Oral DAILY 500 mcg at 11/16/19 0831 ergocalciferol (vitamin d2) (CALCIFEROL) capsule 50,000 Units 50,000 Units Oral QWEEKLY 50,000 Units at 11/14/19 1731 lisinopril (PRINIVIL,ZESTRIL) tablet 2.5 mg 2.5 mg Oral DAILY 2.5 mg at 11/16/19 0831 Saline Bubble Study 6 mL Injection SEE-INSTRUCTIONS 6 mL at 11/14/19 1131 Saline Bubble Study 6 mL Injection SEE-INSTRUCTIONS 6 mL at 11/14/19 1130 acetaminophen (TYLENOL) tablet 650 mg 650 mg Oral Q6HPRN 650 mg at 11/14/19 1731 aspirin chewable tablet 81 mg 81 mg Oral DAILY 81 mg at 11/16/19 0833 atorvastatin (LIPITOR) tablet 40 mg 40 mg Oral QHS 40 mg at 11/15/19 204 escitalopram oxalate (LEXAPRO) tablet 20 mg 20 mg Oral DAILY 20 mg at 11/16/19 0833 famotidine (PEPCID) tablet 40 mg 40 mg Oral DAILY 40 mg at 11/16/19 0833 NaCl 0.9% (NS) IV infusion 1,000 mL 1,000 mL IV Infusion CONTINUOUS 75 mL/hr at 11/14/19 2146 1,000 mL at 11/14/19 2146 LABS Recent Results (from the past 24 hour(s)) CORONAVIRUS COVID-19 TESTING Collection Time: 11/15/19 1:08 PM Result Value Ref Range SARS-CoV-2 PCR Not Detected Not Detected PROFILE / HEMOGRAM Collection Time: 11/16/19 4:23 AM Result Value Ref Range WBC 9.10 4.30 - 11.10 10*3/L RBC 4.19 3.93 - 5.25 10*6/L HGB 12.9 11.6 - 15.0 g/dL HCT 37.1 35.7 - 45.2 % MCH 30.8 25.9 - 32.8 pg MCV 88.5 80.6 - 95.5 fL MCHC 34.8 31.6 - 35.1 g/dL PLT 179 166 - 358 10*3/L MPV 10.5 9.5 - 12.9 fL RDW-CV 13.3 12.0 - 15.5 % RDW-SD 43.1 39.0 - 49.9 fL NRBC x10^3 <0.01 10*3/L NRBC/100 WBC 0.0 0.0 - 10.0 /100 WBCs IPF % STROKE LABS HGB A1C (% NGSP) Date Value 11/13/2019 5.7 LDL CHOL (mg/dL) Date Value 11/13/2019 134 CHOL (mg/dL) Date Value 11/13/2019 209 (H) TSH (mIU/L) Date Value 11/13/2019 2.12 Recent Labs 11/13/19 1011 TROPNI <0.012 RADIOLOGY Mr Brain Wo Contrast Result Date: 11/15/2019 Acute/subacute infarct in the left DUSTY territory Background moderate microvascular ischemia changes and remote basal ganglia lacunar infarcts. Preliminary Report Dictated by Resident: Zayra Stapleton Report change Matthew Gomez reviewed this study and agree with the above report with the following minor modifications, acute-subacute left DUSTY territory infarct. Dr. Loredo was notified of the report change at 10:00 AM on 11/15/2019 Matthew Gomez MD., have reviewed this study and agree with the above report. ASSESSMENT AND PLAN Nat Villanueva is a 69 year old female with PMHx of HTN, presenting with: R sided weakness 2/2 L cerebral infarction L DUSTY Acute encephalopathy likely 2/2 to vit b12 deficiency Comment: mental status improving after vitamin B12. MRI showing Infarct in DUSTY territory. Cardiology placed ILR on 11/14. Plan: - Aspirin 81 daily - Lipitor 40mg daily - BP goal - normotension - c/w Lexapro 20 daily. Add fluoxetine. Its been showed to improved weakness in stroke patients. - c/w lisinopril 2.5 mg QD - d/c ed IV fluids - c/w vit D qw and b12 supplementation - Pending rehab placement - SERG Monday. Pending covid pcr screening priro SERG - GI Prophylaxis: famotidine - DVT Prophylaxis: heparin - Code status: full Discussed and seen with Dr. Sarmiento, Neurology Faculty Stroke pager: [phone] Eusebia Louis MD, PGY-2, Neurology Pager: Hospital course: 69 y/o F with PMHx of HTN, presented with AMS and R arm and leg weakness. NIHSS 4, out of the windowfor TPA, CT head with mild chronic ischemic disease, CTA w no LVO or significant atherosclerosis. MRI brain showed a left DUSTY infarct explaining her right weakness. EEG showed focal L frontotemporal slowing. TTE normal, no shunt. Labs with low vit D and B12 (208). Mentation improved after vitamin b12 supplementation. ILR placed cardiology on 11/14. Pending SERG and rehab placement. Associated attestation - Robert Sarmiento MD - 11/16/2019 12:01 PM CDTI personally examined this patient today. In addition, I actively participated in the decision making process, and helped formulate the assessment and plan/recommendations written in the resident's note. Maribell Rosado, CORPORATE REPRESENTATIVE - 11/16/2019 10:05 AM CDTPhysical Therapy Progress Note: Recommendations: Primary discharge plan: rehabilitation hospital Equipment recommendations: defer to facility PAIN: denies pain PRECAUTIONS: Weight Bearing Precaution: WBAT General Precautions: PPE used:Gloves and Surgical mask, General, Fall, Bracing/Cast present or required:N/A S: Patient agreeable to working with PT. Patient stating she is about to eat breakfast. O: Patient met Semi reclined in bed. Patient seen for the following: Bed mobility: Repositioned patient to head of bed: Minimal assist cued patient on body mechanics Therapeutic exercise: patient educated in Energy conservation, Fall prevention, General strengthening, Positioning and Safety awareness., instructed patient in the following: ankle pumps, quad sets, heel slides, hip abduction/adduction, patient/caregiver verbalizes understanding of instructions. After session, patient Semi reclined in bed and call mishra provided. A: Patient tolerated session fair. Patient progressing toward goals #4. P: PT will - progress gait distance. Total Timed Tx Codes in Minutes: 24 Min Total Treatment Time in Minutes: 24 Min Maribell Rosado PTA Pager #: [phone] Supervising PT Fernando Brooks be, Fernando Houser PT - 11/15/2019 4:42 PM CDT Physical Therapy Progress Note: Recommendations: Primary discharge plan: rehabilitation hospital Equipment recommendations: defer to facility PAIN: denies pain PRECAUTIONS: Weight Bearing Precaution: WBAT General Precautions: PPE used:Gloves and Surgical mask, General, Fall, Bracing/Cast present or required:N/A S: Patient agreeable to working with PT. O: Patient met Semi reclined in bed. Patient seen for the following: Bed mobility: Supine-sit: Minimal assist with verbal cues with head of the bed elevated. Sitting at the edge ofbed: patient provided with CGA with verbal cues. Scooting in sitting: patient provided with min assist with verbal cues. Transfers: Sit to stand: Minimal assist using Rolling Walker Stand to sit: Minimal assist using Rolling Walker cued for hand placemetn and technique Gait: Assisted patient with ambulation as follows: 50 feet using Rolling Walker and Minimal assist. With verbal cues for postural correction initially patient presents with decreased Rt foot clearance with LE in external rotation however with verbal cues patient able to correct gait pattern with increase stride length and with increase foot clearance with push off with RT LE Therapeutic exercise: instructed patient in the following: ankle pumps, heel slides After session, patient Up in chair and call mishra provided. Rn notified of patient status A: Patient tolerated session well. Patient progressing toward goals #1, #2, #3. P: PT will - progress with therapy to increase strength, enruance and balance . Total Timed Tx Codes in Minutes: 23 Min Total Treatment Time in Minutes: 23 Min Fernando rBooks PT, DPT Pager Number: [phone] Sera Castano SW - 11/15/2019 3:05 PM CDTSocial Work note: Clinicals rec'v at [facility], [address], [place], [place](Ph) [phone] (F) [phone]-their director requested patient work with Speech and PT/OT more prior to being accepted to [facility]. Possible acceptance on Monday, 11/17 SW communicated with both Speech and PT to request patient be seen over this weekend SW to follow up and fax updated notes when available SW attempted to meet with patient to discuss option of choosing alt rehab for referral ; however, patient off unit at this time Packet on unit includes: -MOT signed by transferring MD -completed/signed COVID (-) screen -incomplete WC van voucher (voucher # [id number]) Marielena Beal, [facility] [phone] (personal cell #/not for patient use) [address] [place] [address] Care Mgmt Dept Sera Castano SW - 11/15/2019 11:57 AM Xiomara Villanueva [id number] RE: Care Management Patient Choice Notification Your doctor has recommended that you have post-hospital care services at discharge. You can choose the provider you want, regardless of its relationship with [facility]. We will contact any of the agencieswithin the [facility] network, or any other agency upon your request. The hospital must assist patients, their families, or the patients authorization representative in selecting a post-acute care provider by using and sharing data that includes, but is not limited to, Home Health Agencies, Fdc Facilities, Inpatient Rehab, or Manager Call Acute Care, Half-Way data on quality measures and data on resource use measures. Based on where you live and agency service areas, a list was generated from: Medicare.gov Disclosure: [facility] owns or is affiliated with the following facilities/agencies: [facility] (longterm and rehabilitation) Patient Choice Acknowledgement I, Nat Villanueva / authorized authorization representative, am aware that I have choice in selecting post-hospital care providers. The hospital has given me a list of providers in the area available to me and/or my authorized authorization representative. My choice(s) are listed below: ? Rehab: [facility], [address], [place], [place] (Ph) [phone] (F) [phone] Your signature on this form indicates that you have been given the following information: I have been advised of my right to choose the providers I wish ? If longterm facilities, long-term acute care hospitals, or home health agencies were recommended, I was given a list of facilities/agencies in my geographic area that deliver these services or ? I have pre-selected or am an established client with a facility/agency and choose to initiate/continue services 11/15/19 Patient/Guardian/Responsible Constitution Party Signature Date Signed copy placed on chart to be scanned into Electronic Medical Record Annalise Gar - 11/15/2019 11:36 AM CDTSpeech-Language Pathology 11/15/2019 11:40 AM ANALYSIS REPORTING DEVELOPER attempted to see pt this am for speech therapy treatment, however patient currently working withPT at this time. ANALYSIS REPORTING DEVELOPER will attempt to see pt later today as time permits. Annalise Barr MA, ANALYSIS REPORTING DEVELOPER-Family Consultant Speech-Language Pathology Resident Office: [phone] Pager: [phone] / [phone] Associated attestation - Niya Villareal SLP - 11/15/2019 2:16 PM CDTI agree with the assessment and recommendations as completed and written by Annalise Brar MA, ANALYSIS REPORTING DEVELOPER-Family Consultant. Niya Villareal MS, CCC-ANALYSIS REPORTING DEVELOPER Speech-Language Pathologist Office: [phone] Pager: [phone] Fernandez MD - 11/15/2019 9:32 AM CDT STROKE PROGRESS NOTE DATE OF SERVICE: 11/15/2019 09:38 Day of Hospitalization: 1 CHIEF COMPLAINT: R sided weakness 24-HOUR EVENTS: -MRI with a ischemic stroke on L DUSTY territory -Mentation improved -Cardiology consulted for ILR placement SUBJECTIVE: Reports she continue with R side weakness. Denies any new symptoms. Denies vision changes, swallowing issues, dizziness, headaches, nausea. STROKE DOCUMENTATION NIH STROKE SCALE LOC: 0 Alert: Keenly Responsive LOC QUESTIONS: 0 Answers Both Questions Correctly LOC COMMANDS: 0 Performs Both Tasks Correctly BEST GAZE: 0 Normal VISUAL: 0 No Visual Loss FACIAL PALSY: 0 Normal MOTOR ARM-LEFT: 0 No Drift MOTOR ARM-RIGHT: 2 Some Effort Against [place] MOTOR LEG-LEFT: 0 No Drift MOTOR LEG-RIGHT: 2 Some Effort Against [place] LIMB ATAXIA: 0 Absent SENSORY: 0 Normal BEST LANGUAGE: 0 No Aphasia DYSARTHRIA: 0 Normal EXTINCTION AND INATTENTION (FORMERLY NEGLECT): 0 No Abnormalty STROKE SCALE INTERVAL: Other STROKE SCALE TOTAL SCORE: 4 OBJECTIVE: PHYSICAL EXAM Vitals: 11/14/19 1952 11/15/19 0003 11/15/19 0522 11/15/19 0834 BP: 130/54 (!) 142/62 139/63 (!) 159/66 Pulse: 70 72 73 63 Resp: 18 18 18 18 Temp: 36.8 C (98.3 F) 36.9 C (98.4 F) 36.7 C (98 F) 36.6 C (97.9 F) TempSrc: Oral Oral Oral Oral SpO2: 96% 95% 96% 93% Weight: Height: General: Alert and oriented x 3 (person, place and month/year); no apparent distress. Mental Status: Consciousness, attention, concentration: follows simple and complex commands. Improved Speech/ Language: intact to comprehension, repetition and naming 3/3, +fluency normal (improved). 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 Remote and recent memory: poor Cranial Nerves: I. Not tested II. PERRL. FOV full to confrontation. III. IV., . Extraocular movements intact without nystagmus. V. Normal sensation in V1-3 distributions. VII. No facial droop noted. VIII. Hearing intact. IX., X. Palatal elevation present symmetrically. XI. Normal Strength of sternocleidomastoid and trapezius muscles bilaterally. XII. Tongue in midline. Motor: Tone: normal Bulk: normal STRENGTH Right Left Deltoid 2 5- Biceps 2 5- Triceps 2 5- Wrist extensors 2 5- Interossei 2 5- Hip flexors 2 5 Knee flexors (hamstring) 2+ 5 Knee extensors(quadriceps) 2+ 5 Ankle dorsiflexors 2+ 5 Ankle plantarflexors 2+ 5 DTR's: Right Left Biceps 2+ 2+ Triceps 2+ 2+ Brachioradialis 2+ 2+ Patella 2+ 2+ Achilles 1+ 1+ Pathologic reflexes and signs: Shah: absent Babinski: +R toe dorsiflexion, LLE normal Cerebellar: Nystagmus: neg, FTN: nl, HTS:nl, Tremors: neg Sensory: LT: intact, temperature: intact, Vibration: intact Gait: unable to assess HEENT: pupils equal, round, reactive to light; extraocular movements intact; oropharynx clear; moistmucous membranes Lungs: clear to auscultation bilaterally Cardio: S1, S2 normal Extremities:no cyanosis,clubbing or edema, Neck:supple,no carotid bruit,no JVD, no meningeal signs Abdomen: soft; non-tender; non-distended MEDICATIONS Current Facility-Administered Medications Medication Dose Route Frequency Last Rate Last Dose cefTRIAXone (ROCEPHIN) 1,000 mg in NaCl 0.9% (NS) 50 mL MINI-BAG 1,000 mg IV Piggyback Q24H ABX 1,000 mg at 11/14/19 1527 ergocalciferol (vitamin d2) (CALCIFEROL) capsule 50,000 Units 50,000 Units Oral QWEEKLY 50,000 Units at 11/14/19 1731 heparin (porcine) injection 5,000 Units 5,000 Units Subcutaneous BID 5,000 Units at 11/15/19 0934 lisinopril (PRINIVIL,ZESTRIL) tablet 2.5 mg 2.5 mg Oral DAILY 2.5 mg at 11/15/19 0900 Saline Bubble Study 6 mL Injection SEE-INSTRUCTIONS 6 mL at 11/14/19 1131 Saline Bubble Study 6 mL Injection SEE-INSTRUCTIONS 6 mL at 11/14/19 1130 acetaminophen (TYLENOL) tablet 650 mg 650 mg Oral Q6HPRN 650 mg at 11/14/19 1731 aspirin chewable tablet 81 mg 81 mg Oral DAILY 81 mg at 11/15/19 0930 atorvastatin (LIPITOR) tablet 40 mg 40 mg Oral QHS 40 mg at 11/14/19 214 escitalopram oxalate (LEXAPRO) tablet 20 mg 20 mg Oral DAILY 20 mg at 11/15/19 0930 famotidine (PEPCID) tablet 40 mg 40 mg Oral DAILY 40 mg at 11/14/19 0935 NaCl 0.9% (NS) IV infusion 1,000 mL 1,000 mL IV Infusion CONTINUOUS 75 mL/hr at 11/14/192145 1,000 mL at 11/14/192145 LABS Recent Results (from the past 24 hour(s)) BASIC METABOLIC PANEL (NA, K, CL, CO2, GLUCOSE, BUN, CREATININE, CA) Collection Time: 11/15/19 5:46 AM Result Value Ref Range NA 137 135 - 145 mmol/L K 3.5 3.5 - 5.0 mmol/L CL 104 98 - 108 mmol/L CO2 TOTAL 26 23 - 31 mmol/L AGAP 7 2 - 16 BUN 15 7 - 23 mg/dL GLUCOSE 115 (H) 70 - 110 mg/dL CREATININE 0.53 0.50 - 1.04 mg/dL CALCIUM 8.5 (L) 8.6 - 10.6 mg/dL eGFR Calculation (Non-) 114.0 mL/min/1.73m2 eGFR Calculation () 138.2 mL/min/1.73m2 MAGNESIUM Collection Time: 11/15/19 5:46 AM Result Value Ref Range MAGNESIUM 1.7 1.7 - 2.4 mg/dL CBC WITH DIFFERENTIAL Collection Time: 11/15/19 5:46 AM Result Value Ref Range WBC 7.91 4.30 - 11.10 10*3/L RBC 3.82 (L) 3.93 - 5.25 10*6/L HGB 11.5 (L) 11.6 - 15.0 g/dL HCT 33.8 (L) 35.7 - 45.2 % MCV 88.5 80.6 - 95.5 fL MCH 30.1 25.9 - 32.8 pg MCHC 34.0 31.6 - 35.1 g/dL RDW-SD 43.0 39.0 - 49.9 fL RDW-CV 13.3 12.0 - 15.5 % PLT 168 166 - 358 10*3/L MPV 10.5 9.5 - 12.9 fL NRBC/100 WBC 0.0 0.0 - 10.0 /100 WBCs NRBC x10^3 <0.01 10*3/L GRAN MAT (NEUT) % 57.0 % IMM GRAN % 0.30 % LYMPH % 34.4 % MONO % 6.7 % EOS % 1.1 % BASO % 0.5 % GRAN MAT x10^3(ANC) 4.51 1.88 - 7.09 10*3/uL IMM GRAN x10^3 <0.03 0.00 - 0.06 10*3/uL LYMPH x10^3 2.72 1.32 - 3.29 10*3/uL MONO x10^3 0.53 0.33 - 0.92 10*3/uL EOS x10^3 0.09 0.03 - 0.39 10*3/uL BASO x10^3 0.04 0.01 - 0.07 10*3/uL STROKE LABS HGB A1C (% NGSP) Date Value 11/13/2019 5.7 LDL CHOL (mg/dL) Date Value 11/13/2019 134 CHOL (mg/dL) Date Value 11/13/2019 209 (H) TSH (mIU/L) Date Value 11/13/2019 2.12 Recent Labs 11/13/19 1011 TROPNI <0.[address] Angiogram Head Result Date: 11/13/2019 No aneurysm or high-grade stenosis is present in the intracranial or cervical vessels Image quality:The slice thickness is too thick on the CTA head MIP reconstructions resulting in vessel skipping Ct Head Wo Contrast Result Date: 11/13/2019 Background mild ischemic small vessel disease Age-indeterminate lacunar infarcts in the bilateral basal ganglia Preliminary Report Dictated by Resident: Rylee Barbosa I, Matthew Garrett MD., have reviewed this study and agree with the above report. Ct Angiogram Neck Result Date: 11/13/2019 No aneurysm or high-grade stenosis is present in the intracranial or cervical vessels Image quality:The slice thickness is too thick on the CTA head MIP reconstructions resulting in vessel skipping Xr Hips 3 Vw Bilateral Result Date: 11/13/2019 No acute radiographic abnormality of the hips ASSESSMENT AND PLAN Nat Villanueva is a 69 year old female with PMHx of HTN, presenting with: R sided weakness 2/2 L cerebral infarction L DUSTY Acute encephalopathy likely 2/2 to vit b12 deficiency Comment: mental status improving after vitamin B12. MRI showing Infarct in DUSTY territory. Cardiology placed ILR today. Plan: - Aspirin 81 daily - Lipitor 40mg daily - BP goal - normotension - IVF NS @ 75ml/h - c/w Lexapro 20 daily. Add fluoxetine. Its been showed to improved weakness in stroke patients. - c/w lisinopril 2.5 mg QD - c/w vit D qw and b12 supplementation - Pending rehab placement - SERG Monday. Pending covid pcr screening priro SERG - GI Prophylaxis: famotidine - DVT Prophylaxis: heparin - Code status: full Discussed with Dr. Cuadra, Neurology Faculty Stroke pager: [phone] Hospital course 69 y/o F with PMHx of HTN, presented with AMS and R arm and leg weakness. NIHSS 4, out of the windowfor TPA, CT head with mild chronic ischemic disease, CTA w no LVO or significant atherosclerosis. MRI brain showed a left DUSTY infarct explaining her right weakness. EEG showed focal L frontotemporal slowing. TTE normal, no shunt. Labs with low vit D and B12 (208). Mentation improved after vitamin b12 supplementation. Cardiology placed a ILR today. Associated attestation - Tim Cuadra MD - 11/15/2019 9:43 PM CDTI personally saw the patient and agree with the history, physical, assessment and plan as documentedin Dr. Fernandez's resident note with the following highlights, additions and addendums. 69 year old female with PMH of HTN and depression who presented to [facility] with 2 days of right sided weakness and altered mental status. She was found to have a UTI for which she is currently receiving antibiotics and a low vitamin B12 for which she is receiving supplementation, with both therapies allowing for improvement in mental status. Regarding her right sided weakness she has a 2-3/5 weakness andher exam findings are suspicious for stroke. CT head w/o contrast showing a questionable L cerebralhypodensity and CTA head/neck negative for any intracranial atherosclerosis or significant carotid disease. MRI brain w/o contrast showing a L DUSTY distribution stroke. EEG was done due to mental status changes and showed L frontotemporal slowing. TTE showing normal EF, no shunt, no RWMA, normal LA andno valvular abnormalities. HgbA1C was 5.7 and LDL was 134 for which Lipitor 40mg QHS was initiated. Etiology of stroke is cryptogenic at this point but suspicious for cardioembolic origin. ILR was placed today and patient was accepted at rehab but was unable to go today so will plan for SERG on Monday before discharge to rehab. Tim Cuadra MD Vascular Neurology Farhat Schwartz MD - 11/14/2019 4:32 PM CDT STROKE PROGRESS NOTE DATE OF SERVICE: 11/14/2019 16:41 Day of Hospitalization: 0 CHIEF COMPLAINT: R sided weakness 24-HOUR EVENTS: - started ceftriaxone for pyuria -vit b12 and vit D deficiency SUBJECTIVE: Patient's mental status improved this AM. Earlier patient was not able why she came to the hospital,she was laughing inapropiately and could not answer most of the questions except for orientation. STROKE DOCUMENTATION NIH STROKE SCALE LOC: 0 Alert: Keenly Responsive LOC QUESTIONS: 0 Answers Both Questions Correctly LOC COMMANDS: 0 Performs Both Tasks Correctly BEST GAZE: 0 Normal VISUAL: 0 No Visual Loss FACIAL PALSY: 0 Normal MOTOR ARM-LEFT: 0 No Drift MOTOR ARM-RIGHT: 2 Some Effort Against [place] MOTOR LEG-LEFT: 0 No Drift MOTOR LEG-RIGHT: 2 Some Effort Against [place] LIMB ATAXIA: 0 Absent SENSORY: 0 Normal BEST LANGUAGE: 0 No Aphasia DYSARTHRIA: 0 Normal EXTINCTION AND INATTENTION (FORMERLY NEGLECT): 0 No Abnormalty STROKE SCALE INTERVAL: Other STROKE SCALE TOTAL SCORE: 4 OBJECTIVE: PHYSICAL EXAM Vitals: 11/14/19 0444 11/14/19 0828 11/14/19 1229 11/14/19 1630 BP: 125/62 129/53 139/79 139/60 Pulse: 73 66 72 66 Resp: 12 16 16 18 Temp: 37.2 C (98.9 F) 36.8 C (98.3 F) 36.7 C (98 F) 36.7 C (98.1 F) TempSrc: Oral Oral Oral Oral SpO2: 90% 91% 94% 95% Weight: Height: General: Alert and oriented x 3 (person, place and month/year); no apparent distress. Mental Status: Consciousness, attention, concentration: follows simple commands, unable to do 2-3 step commands. Speech/ Language: intact to comprehension, repetition and naming 3/3, +decreased fluency (answers yes and no), needs prompting to elaborate on her answers. Fund of knowledge: knows president Remote and recent memory: poor Cranial Nerves: I. Not tested II. PERRL. FOV full to confrontation. III. IV., . Extraocular movements intact without nystagmus. V. Normal sensation in V1-3 distributions. VII. No facial droop noted. VIII. Hearing intact. IX., X. Palatal elevation present symmetrically. XI. Normal Strength of sternocleidomastoid and trapezius muscles bilaterally. XII. Tongue in midline. Motor: Tone: normal Bulk: normal STRENGTH Right Left Deltoid 3 5- Biceps 3 5- Triceps 2 5- Wrist extensors 2 5- Interossei 2 5- Hip flexors 2 5 Knee flexors (hamstring) 2+ 5 Knee extensors(quadriceps) 2+ 5 Ankle dorsiflexors 2+ 5 Ankle plantarflexors 2+ 5 DTR's: Right Left Biceps 2+ 2+ Triceps 2+ 2+ Brachioradialis 2+ 2+ Patella 2+ 2+ Achilles 1+ 1+ Pathologic reflexes and signs: Shah: absent Babinski: +R toe dorsiflexion, LLE normal Cerebellar: Nystagmus: neg, FTN: nl, HTS:nl, Tremors: neg Sensory: LT: intact, temperature: intact, Vibration: intact Gait: unable to assess HEENT: pupils equal, round, reactive to light; extraocular movements intact; oropharynx clear; moistmucous membranes Lungs: clear to auscultation bilaterally Cardio: S1, S2 normal Extremities:no cyanosis,clubbing or edema, +R hip pain with movement Neck:supple,no carotid bruit,no JVD, no meningeal signs Abdomen: soft; non-tender; non-distended MEDICATIONS Current Facility-Administered Medications Medication Dose Route Frequency Last Rate Last Dose cefTRIAXone (ROCEPHIN) 1,000 mg in NaCl 0.9% (NS) 50 mL MINI-BAG 1,000 mg IV Piggyback Q24H ABX 1,000 mg at 11/14/19 1527 ergocalciferol (vitamin d2) (CALCIFEROL) capsule 50,000 Units 50,000 Units Oral QWEEKLY heparin (porcine) injection 5,000 Units 5,000 Units Subcutaneous BID 5,000 Units at 11/14/19 0936 lisinopril (PRINIVIL,ZESTRIL) tablet 2.5 mg 2.5 mg Oral DAILY 2.5 mg at 11/14/19 0935 Saline Bubble Study 6 mL Injection SEE-INSTRUCTIONS 6 mL at 11/14/19 1131 Saline Bubble Study 6 mL Injection SEE-INSTRUCTIONS 6 mL at 11/14/19 1130 acetaminophen (TYLENOL) tablet 650 mg 650 mg Oral Q6HPRN aspirin chewable tablet 81 mg 81 mg Oral DAILY 81 mg at 11/14/19 0935 atorvastatin (LIPITOR) tablet 40 mg 40 mg Oral QHS escitalopram oxalate (LEXAPRO) tablet 20 mg 20 mg Oral DAILY 20 mg at 11/14/19 0935 famotidine (PEPCID) tablet 40 mg 40 mg Oral DAILY 40 mg at 11/14/19 0935 NaCl 0.9% (NS) IV infusion 1,000 mL 1,000 mL IV Infusion CONTINUOUS 75 mL/hr at 11/13/19 2323 1,000 mL at 11/13/19 2323 LABS Recent Results (from the past 24 hour(s)) IRON PANEL Collection Time: 11/13/19 10:06 PM Result Value Ref Range IRON 73 50 - 160 ug/dL TIBC 263 250 - 410 ug/dL % FE SAT 28 20 - 50 % CORTISOL STIMULATION 0 MIN Collection Time: 11/13/19 10:06 PM Result Value Ref Range JU 0 8.5 4.5 - 23.0 ug/dL PROTHROMBIN TIME / INR Collection Time: 11/13/19 10:06 PM Result Value Ref Range PROTIME PATIENT 12.9 (H) 10.1 - 12.6 Seconds INR 1.1 VITAMIN B12, LEVEL Collection Time: 11/13/19 10:09 PM Result Value Ref Range VIT B12 208 (L) 240 - 930 pg/mL VITAMIN D, 25-OH Collection Time: 11/13/19 10:09 PM Result Value Ref Range VIT D 25OH 18 (L) 25 - 80 ng/mL FREE T4 Collection Time: 11/13/19 10:10 PM Result Value Ref Range FREE T4 1.27 0.78 - 2.20 ng/dL: FOLATE Collection Time: 11/13/19 10:10 PM Result Value Ref Range FOLATE SER 10.3 3.0 - 20.0 ng/mL AMMONIA, PLASMA Collection Time: 11/13/19 10:10 PM Result Value Ref Range AMMONIA <9 (L) 9 - 33 umol/L Basic Metabolic Panel (NA, K, CL, CO2, GLUCOSE, BUN, CREATININE, CA) Collection Time: 11/14/19 4:42 AM Result Value Ref Range NA 137 135 - 145 mmol/L K 3.2 (L) 3.5 - 5.0 mmol/L CL 101 98 - 108 mmol/L CO2 TOTAL 28 23 - 31 mmol/L AGAP 8 2 - 16 BUN 18 7 - 23 mg/dL GLUCOSE 110 70 - 110 mg/dL CREATININE 0.54 0.50 - 1.04 mg/dL CALCIUM 8.9 8.6 - 10.6 mg/dL eGFR Calculation (Non-) 111.6 mL/min/1.73m2 eGFR Calculation () 135.3 mL/min/1.73m2 CBC WITH DIFFERENTIAL Collection Time: 11/14/19 4:42 AM Result Value Ref Range WBC 9.45 4.30 - 11.10 10*3/L RBC 3.93 3.93 - 5.25 10*6/L HGB 11.9 11.6 - 15.0 g/dL HCT 34.8 (L) 35.7 - 45.2 % MCV 88.5 80.6 - 95.5 fL MCH 30.3 25.9 - 32.8 pg MCHC 34.2 31.6 - 35.1 g/dL RDW-SD 43.4 39.0 - 49.9 fL RDW-CV 13.2 12.0 - 15.5 % PLT 186 166 - 358 10*3/L MPV 10.9 9.5 - 12.9 fL NRBC/100 WBC 0.0 0.0 - 10.0 /100 WBCs NRBC x10^3 <0.01 10*3/L GRAN MAT (NEUT) % 62.5 % IMM GRAN % 0.30 % LYMPH % 29.8 % MONO % 6.5 % EOS % 0.6 % BASO % 0.3 % GRAN MAT x10^3(ANC) 5.90 1.88 - 7.09 10*3/uL IMM GRAN x10^3 0.03 0.00 - 0.06 10*3/uL LYMPH x10^3 2.82 1.32 - 3.29 10*3/uL MONO x10^3 0.61 0.33 - 0.92 10*3/uL EOS x10^3 0.06 0.03 - 0.39 10*3/uL BASO x10^3 0.03 0.01 - 0.07 10*3/uL URINALYSIS Collection Time: 11/14/19 6:46 AM Result Value Ref Range APPEARANCE Hazy (A) Clear COLOR Yellow Yellow PH 5.0 4.8 - 8.0 SP GRAVITY >1.060 (H) 1.003 - 1.030 GLU U QUAL Normal Normal BLOOD Negative Negative KETONES Negative Negative PROTEIN Negative Negative UROBILIN Normal Normal BILIRUBIN Negative Negative NITRITE Negative Negative LEUK WOOD 25/uL (A) Negative RBC/HPF 35 (H) 0 - 3 HPF WBC/HPF 16 (H) 0 - 5 HPF BACTERIA Moderate (A) Negative MUCOUS Slight (A) Negative LPF SQ EPITH <1 <=2 HPF STROKE LABS HGB A1C (% NGSP) Date Value 11/13/2019 5.7 LDL CHOL (mg/dL) Date Value 11/13/2019 134 CHOL (mg/dL) Date Value 11/13/2019 209 (H) TSH (mIU/L) Date Value 11/13/2019 2.12 Recent Labs 11/13/19 1011 TROPNI <0.[address] Angiogram Head Result Date: 11/13/2019 No aneurysm or high-grade stenosis is present in the intracranial or cervical vessels Image quality:The slice thickness is too thick on the CTA head MIP reconstructions resulting in vessel skipping Ct Head Wo Contrast Result Date: 11/13/2019 Background mild ischemic small vessel disease Age-indeterminate lacunar infarcts in the bilateral basal ganglia Preliminary Report Dictated by Resident: Rylee Barbosa I, Matthew Garrett MD., have reviewed this study and agree with the above report. Ct Angiogram Neck Result Date: 11/13/2019 No aneurysm or high-grade stenosis is present in the intracranial or cervical vessels Image quality:The slice thickness is too thick on the CTA head MIP reconstructions resulting in vessel skipping Xr Hips 3 Vw Bilateral Result Date: 11/13/2019 No acute radiographic abnormality of the hips ASSESSMENT AND PLAN Nat Villanueva is a 69 year old female with PMHx of HTN, presented with AMS and R arm and leg weakness, LSN: 2 days CORPORATE REPRESENTATIVE, NIHSS 3>4. not a candidate for tpa d/t out of the window, CTH showed questionable L cerebral hypodensity, CTA w no LVO or significant atherosclerosis, EEG showed focal L frontotemporal slowing. TTE normal, no shunt. Labs remarkable for vit D and B12 deficiency and pyuria. 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 Cuadra, Neurology Faculty Stroke pager: [phone] Farhat Loredo MD PGY-2 Neurology Pager [phone] Cell # [phone] Associated attestation - Tim Cuadra MD - 11/14/2019 5:03 PM CDTI personally saw the patient and agree with the history, physical, assessment and plan as documentedin Dr. Facundo Ferrer's resident note with the following highlights, additions and addendums. Please see my attending attestation of H&P done earlier in the day. Tim Cuadra MD Vascular NeurologySera Beal SW - 11/14/2019 4:17 PM CDTSocial Work note: MARÍA met with patient re: PT & OT rec for rehab placement when medically able to discharge. MARÍA provided patient with list of local rehabs to review. MARÍA will f/u for choice tomorrow Marielena Beal, [facility] [phone] (personal cell #/not for patient use) [address] [place] [address] Care Mgmt Dept Arina mackenzie LMSW - 11/14/2019 3:50 PM CDTCare Management Social Functional Assessment Patient Name: Nat Villanueva Age: [age] year old Sex: female Previous admit date: N/A Current diagnosis and co-morbidities: Confusion Readmission Questions: Was patient discharged from any acute care hospital within the last 30 days: No Social Functional Assessment: Primary language spoken/preferred: Kenyan Mental Status: Alert & Oriented to Person, Place Information given by: Child Name and phone number of person giving information: Promise Simms (Dtr) [phone]; Rosa Phillips ([employer]) [phone] Patient's support system: Child Name and number of support system: Promise Simms (Dtr) [phone]; Rosa Phillips ([employer]) [phone] 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 [address] Persons living in home: Self;Other Names & numbers of persons living in home: Matthew Nguyễn (Sig Other) In the hospital currently Baseline functional status- ambulation: Independent Functional status-baseline personal care: Independent Baseline functional status- driving: Independent Baseline functional status- grocery shopping: Independent Functional status-baseline housekeeping: Independent Functional status-baseline meal prep: Independent Current functional status same as prior: No Current functional status- ambulation: Requires minimal to moderate assistance Current functional status- personal care: Requires minimal to moderate assistance Current functional status- driving: Requires minimal to moderate assistance Current functional status- grocery shopping: Requires minimal to moderate assistance Current functional status-house keeping: Requires minimal to moderate assistance Current functional status- meal preparation: Requires minimal to moderate assistance Do you have a PCP?: Yes Name of PCP: Adin Velez [facility] Care Agency: No Provider Services: No DME Company: No Equipment: None Hemodialysis: No Community resources utilized: None Funding Resources: Medicare A & B Prescription coverage plan: Medicare Part D Pharmacy where meds are filled: Other Other pharmacy: [facility] in [place], [place] Anticipated services prior to disharge: Continue Medical Eval;Reassess prior to discharge Expected mode of discharge transportation: Same as support system Additional info required for discharge planning: Pending medical evaluation Recommended discharge plan: Home with new Home Health;New placement SFA Complete: Social Functional Assessment complete: Yes Alcohol Use Screening (AUDIT-C) How often do you have a drink containing alcohol?: Never SCORE: 0 Did patient elect to have resources provided: No Role of Care Management explained. Any issues or concerns with obtaining/affording your medications at home: yes. Describe: Sometimes,depends on the medicaiton. Are you or your support system able to orange picking supervisor medications at discharge: yes. Arina Adams LMSW Supervisor [employer] Care Management C: [phone] O: [phone] [email or web address] Junior Cornejo RN - 11/14/2019 12:04 PM Khalif DELAROSA Arun, MD, after reviewing this case with the [employer] Attendant, I concur this case is appropriate for inpatient admission. The change to inpatient admission is based on the level of care this patient is receiving, medical necessity, risks associated and the expected duration of stay. The inpatient admission order has been entered. Hari Diaz RN BSN Utilization Management P [phone] F [phone] documented in this encounter Plan of Treatment Date Type Specialty Care Team Description 12/03/2019 Appointment Cardiac Electrophysiology Samir Patterson MD [address] [place], [place] [id number] Outpt-Fauzia, Pacemaker/Icd Name Type Priority Associated Diagnoses Order S chedule Cardiac Monitoring 24 HEART STATION Routine ONCE for 1 hours (for SERG) Occurrences starting 11/19/2019 unti l 11/19/2019 Health Maintenance Due Date Last Done Comments HEPATITIS C (HCV) SCREEN 1949 DTaP,Tdap,and Td Vaccines (1 - Tdap) 1960 Breast Cancer Screening (MAMMOGRAM) 1989 COLONOSCOPY 1999 Zoster Recombinant Vaccine (SHINGRIX) (1 of 2) 1999 Medicare Wellness Visit 2014 Osteoporosis Screening 2014 PNEUMOCOCCAL VACCINES 65+ (1 of 2 - PCV13) 2014 INFLUENZA VACCINE (Season Ended) 2020 documented as of this encounter Procedures Procedure Name Priority Date/Time Associated Comments Diagnosis TRANSESOPHAGEAL ECHO NIMA 11/19/2019 12:48 Right sided PM CDT weakness PROFILE / HEMOGRAM Routine 11/16/2019 4:23 Resul ts for this AM CDT procedure are i n the results section. COVID-19 (PCR MOLECULAR Routine 11/15/2019 1:08 Results for this TESTING) PM CDT procedure are i n the results section. MR BRAIN WO CONTRAST STAT 11/15/2019 8:14 Right sided Res ults for this AM CDT weakness procedure are i n the results section. VITAMIN B1 (THIAMINE), Routine 11/15/2019 5:47 R esults for this WHOLE BLOOD AM CDT procedure are i n the results section. METHYLMALONIC ACID, SERUM Routine 11/15/2019 5:47 Results for this AM CDT procedure are i n the results section. CBC WITH DIFFERENTIAL Routine 11/15/2019 5:46 Re sults for this AM CDT procedure are i n the results section. CBC WITH DIFFERENTIAL Routine 11/15/2019 5:46 Re sults for this AM CDT procedure are i n the results section. BASIC METABOLIC PANEL (NA, Routine 11/15/2019 5:46 Results for this K, CL, CO2, GLUCOSE, BUN, AM CDT pr ocedure are in CREATININE, CA) the results section. MAGNESIUM Routine 11/15/2019 5:46 Results for this AM CDT procedure are i n the results section. ECHO ROUTINE W/DOPPLER Routine 11/14/2019 11:12 Confusio n COLOR AM CDT Right sided weakness URINE CULTURE Routine 11/14/2019 6:46 Results fo r this AM CDT procedure are i n the results section. URINALYSIS Routine 11/14/2019 6:46 Results for this AM CDT procedure are i n the results section. CBC WITH DIFFERENTIAL Routine 11/14/2019 4:42 Re sults for this AM CDT procedure are i n the results section. HOMOCYSTEINE Add-on 11/14/2019 4:42 Results for this AM CDT procedure are i n the results section. CBC WITH DIFFERENTIAL Routine 11/14/2019 4:42 Re sults for this AM CDT procedure are i n the results section. BASIC METABOLIC PANEL (NA, Routine 11/14/2019 4:42 Results for this K, CL, CO2, GLUCOSE, BUN, AM CDT pr ocedure are in CREATININE, CA) the results section. ELECTROENCEPHALOGRAM Routine 11/14/2019 Right sided Results for this weakness procedure are i n the results section. FREE T4 Routine 11/13/2019 10:10 Results for this PM CDT procedure are i n the results section. FOLATE Routine 11/13/2019 10:10 Results for this PM CDT procedure are i n the results section. AMMONIA, PLASMA Routine 11/13/2019 10:10 Results for this PM CDT procedure are i n the results section. VITAMIN D, 25-OH Routine 11/13/2019 10:09 Results for this PM CDT procedure are i n the results section. VITAMIN B12, LEVEL Routine 11/13/2019 10:09 Resul ts for this PM CDT procedure are i n the results section. VITAMIN B6, PLASMA Routine 11/13/2019 10:08 Resul ts for this PM CDT procedure are i n the results section. VITAMIN B1 (THIAMINE), Routine 11/13/2019 10:06 R esults for this WHOLE BLOOD PM CDT procedure are i n the results section. CORTISOL STIMULATION 0 MIN Routine 11/13/2019 10:06 Results for this PM CDT procedure are i n the results section. PROTHROMBIN TIME / INR Routine 11/13/2019 10:06 R esults for this PM CDT procedure are i n the results section. IRON PANEL Routine 11/13/2019 10:06 Results for this PM CDT procedure are i n the results section. CT ANGIOGRAM NECK STAT 11/13/2019 4:02 Confusion Result s for this PM CDT procedure are i n the results section. CT ANGIOGRAM HEAD STAT 11/13/2019 4:02 Confusion Result s for this PM CDT procedure are i n the results section. COVID-19 (PCR MOLECULAR Routine 11/13/2019 1:21 Flank p ain Results for this TESTING) PM CDT Confusion procedure are in Pain of right hip the result s joint section. XR HIPS 3 VW BILATERAL STAT 11/13/2019 11:43 Pain of right hip Results for this AM CDT joint procedure are i n the results section. ADC / LCC - DRUG SCREEN STAT 11/13/2019 11:06 Confusion Results for this TRIAGE AM CDT procedure are i n the results section. URINALYSIS STAT 11/13/2019 11:06 Flank pain Results for this AM CDT procedure are i n the results section. LACTIC ACID WHOLE BLOOD STAT 11/13/2019 10:40 Confusion Results for this AM CDT procedure are i n the results section. BLOOD CULTURE SCREEN STAT 11/13/2019 10:39 Confusion Res ults for this AM CDT procedure are i n the results section. BLOOD CULTURE SCREEN STAT 11/13/2019 10:39 Confusion Res ults for this AM CDT procedure are i n the results section. XR CHEST 1 VW Routine 11/13/2019 10:21 Confusion Results fo r this AM CDT procedure are i n the results section. CBC WITH DIFFERENTIAL STAT 11/13/2019 10:12 Confusion Re sults for this AM CDT procedure are i n the results section. GLYCOSYLATED HEMOGLOBIN Add-on 11/13/2019 10:12 Results for this (A1C) AM CDT procedure are i n the results section. CBC WITH DIFFERENTIAL Routine 11/13/2019 10:12 Confusion Re sults for this AM CDT procedure are i n the results section. N-TERMINAL PRO-BNP STAT 11/13/2019 10:11 Confusion Resul ts for this AM CDT procedure are i n the results section. LIPID PANEL (82030)(TOTAL Add-on 11/13/2019 10:11 Results for this CHOLESTEROL, TRIGLYCERIDES, AM CDT procedure are in HDL) the results section. COMP. METABOLIC PANEL STAT 11/13/2019 10:11 Confusion Re sults for this (47614) AM CDT procedure are i n the results section. THYROID STIMULATING HORMONE Add-on 11/13/2019 10:11 Results for this AM CDT procedure are i n the results section. TROPONIN I STAT 11/13/2019 10:11 Confusion Results for this AM CDT procedure are i n the results section. FERRITIN SERUM Add-on 11/13/2019 10:11 Results f or this AM CDT procedure are i n the results section. MAGNESIUM Add-on 11/13/2019 10:11 Results for this AM CDT procedure are i n the results section. CT HEAD WO CONTRAST Routine 11/13/2019 10:00 Confusion Resu lts for this AM CDT procedure are i n the results section. EKG-12 LEAD Routine 11/13/2019 9:44 AM CDT EKG-12 LEAD Routine 11/13/2019 9:30 AM CDT NOTICE OF PRIVACY PRACTICES Routine 11/13/2019 8:56 AM CDT CONSENT/REFUSAL FOR Routine 11/13/2019 8:55 DIAGNOSIS AND TREATMENT AM CDT ASSIGNMENT OF BENEFITS Routine 11/13/2019 8:55 AM CDT HOSPITAL ADMISSION Routine 11/13/2019 12:01 AM CDT documented in this encounter Results PROFILE / HEMOGRAM (11/16/2019 4:23 AM CDT) Pathologist Sig nature WBC 9.10 4.30 - 11.10 [facility] 10*3/L RBC 4.19 3.93 - 5.25 10*6/L [facility] HGB 12.9 11.6 - 15.0 g/dL [facility] HCT 37.1 35.7 - 45.2 % [facility] MCH 30.8 25.9 - 32.8 pg [facility] MCV 88.5 80.6 - 95.5 fL [facility] MCHC 34.8 31.6 - 35.1 g/dL [facility] PLT 179 166 - 358 10*3/L [facility] ES MPV 10.5 9.5 - 12.9 fL [facility] RDW-CV 13.3 12.0 - 15.5 % [facility] RDW-SD 43.1 39.0 - 49.9 fL [facility] NRBC x10^3 <0.01 10*3/L [facility] NRBC/100 WBC 0.0 0.0 - 10.0 /100 WBCs [facility] IPF % [facility] Specimen Blood - VENOUS Performing Organization Address City/[facility]/Zipcode Phone Number [facility] CLIA: [id number], [address] [place] [phone] [facility] CORONAVIRUS COVID-19 TESTING (11/15/2019 1:08 PM CDT) Pathologist Sig maximiliano SARS-CoV-2 PCR Not Detected Not Detected [facility] Specimen Swab - NASOPHARYNGEAL SWAB Narrative Performed At [facility] SARS-CoV-2 Assay is a real-time RT-PCR test [facility] intended for the qualitative detection of RNA from SARS-CoV-2 from nasopharyngeal (ADMINISTRATIVE OFFICE ASSISTANT) specimens. It is u sed under Emergency Use Authorization (EUA) by FDA. A positive result is indicative of the presence of SARS-CoV-2 RNA. Clinical correlation with patient hi story and other diagnostic information is necessary to deter mine patient infection status. A negative (Not Detected) result does not preclude SARS-CoV-2 infection. Clinical correlation with patien t history and other diagnostic information should be use d in patient management decisions. Invalid: Please collect a new specimen for repeat hilary ent testing if clinically indicated. Performing Organization Address City/[facility]/Zipcode Phone Number [facility] CLIA: [id number], [address] [place] [phone] [facility] MR BRAIN WO CONTRAST (11/15/2019 8:14 AM CDT) Specimen Impressions Performed At PACS/VR/DOSE Acute/subacute infarct in the left DUSTY t erritory Background moderate microvascular ischemia changes and remote basal ganglia lacunar infarcts. Preliminary Report Dictated by Resident: Zayra Stapleton Report change IMatthew reviewed this study and agree wi th the above report with the following minor modifications, acute-subacute left DUSTY territory infarct. Dr. Loredo was notified of the report blackwood e at 10:00 AM on 11/15/2019 Matthew Gomez MD., have reviewe d this study and agree with the above report. Narrative Performed At MR BRAIN WO CONTRAST PACS/VR/DOSE HISTORY: 69 years-old Female presenting with Neuro deficit(s), subacute Stroke suspected, focal neuro deficit, > 6 hrs COMPARISON: 11/13/2019 TECHNIQUE: Multisequence multiplanar MR images of the brain were obtained without IV contrast on 1.5 Shaylee MRI. FINDINGS: The ventricles and cerebral sulci are normal in calibe r and configuration. No midline shift, hydrocephalus or patho logical extra-axial fluid collection is present. The basal cistern s are unremarkable. There is diffusion restriction within the left lateral aspect of the genu of the corpus callosum extending into th e para midline left superior frontal gyrus with associated hyperinten se T2/FLAIR signal. Periventricular and additional scattered foci of hyperintense T2/FLAIR signal in the deep cerebral white matter are nonspecific but most likely represent ischemic small vessel disease. Numerous prominent perivascular spaces are seen within the bilateral bas al ganglia as well as multiple chronic lacunar infarcts. No focus of ab normal parenchymal gradient blooming is present. The T2 flow voids for the major intracranial vessels a re unremarkable. No abnormal fluid signal is present in the mastoid air ce lls or paranasal air sinuses. Procedure Note [facility], Radiant Results Inft User - 2019 10:36 AM CDT MR BRAIN WO CONTRAST HISTORY: 69 years-old Female presenting with Neuro deficit(s), subacute Stroke suspected, focal neuro deficit, > 6 hrs COMPARISON: 11/13/2019 TECHNIQUE: Multisequence multiplanar MR images of the brain were obtained without IV contrast on 1.5 Shaylee MRI. FINDINGS: The ventricles and cerebral sulci are no rmal in caliber and configuration. No midline shift, hydrocephalus or patho logical extra-axial fluid collection is present. The basal cistern s are unremarkable. There is diffusion restriction within th e left lateral aspect of the genu of the corpus callosum extending into th e para midline left superior frontal gyrus with associated hyperinten se T2/FLAIR signal. Periventricular and additional scattered foci of hyperintense T2/FLAIR signal in the deep cerebral white matter are nonspecific but most likely represent ischemic small vessel disease. Numerous prominent perivascular spaces are seen within the bilateral bas al ganglia as well as multiple chronic lacunar infarcts. No focus of ab normal parenchymal gradient blooming is present. The T2 flow voids for the major intracra nial vessels are unremarkable. No abnormal fluid signal is present in the mastoid air cells or paranasal air sinuses. IMPRESSION Acute/subacute infarct in the left DUSTY t erritory Background moderate microvascular ischem ia changes and remote basal ganglia lacunar infarcts. Preliminary Report Dictated by Resident: Zayra Stapleton Report change I, Matthew Garrett reviewed this stud y and agree with the above report with the following minor modifications, acute-subacute left DUSTY territory infarct. Dr. Loredo was notified of the report blackwood e at 10:00 AM on 11/15/2019 I, Matthew Garrett MD., have reviewe d this study and agree with the above report. Performing Organization Address City/[facility] Phone Number PACS/VR/DOSE METHYLMALONIC ACID, SERUM (11/15/2019 5:47 AM CDT) MMA Serum/Plasma, 0.13 0.00 - 0.40 [facility] Vitamin B12 Comment: umol/L Status INTERPRETIVE INFORMATION: MMA Serum/Plasma, Vitamin B12 Sta tus Test developed and characteristics determined by [employer]. See Compliance Statement B: [employer]/ CS Performed by [employer], [address] [place], [place] [address]for; to (do)[place] [address] [email or web address], Nestor Avina MD, Lab. Director Specimen Blood - VENOUS Performing Organization Address [facility] [place] [facility] Phone Number [facility] [address] [place] [address] VITAMIN B1 (THIAMINE), WHOLE BLOOD (11/15/2019 5:47 AM CDT) Vitamin B1, Whole 86 70 - 180 [facility] Blood Comment: nmol/L INTERPRETIVE INFORMATION: Vitamin B1, Whole Blood This assay measures the concentration of thiamine diph osphate (TDP), the primary active form of vitamin B1. Approxim ately 90 percent of vitamin B1 present in whole blood is TDP. T hiamine and thiamine monophosphate, which comprise the remaining 1 0 percent, are not measured. Test developed and characteristics determined by [facility]. See Compliance Statement B: [employer]/ CS Performed by [employer], [address] [facility] [place] [address] [email or web address], Nestor Avina MD, Lab. Director Specimen Blood - VENOUS Performing Organization Address [facility] Phone Number [facility] [address] [place] [address] CBC WITH DIFFERENTIAL (11/15/2019 5:46 AM CDT) Pathologist Sig nature WBC 7.91 4.30 - 11.10 [facility] 10*3/L SERVICES RBC 3.82 (L) 3.93 - 5.25 [facility] 10*6/L SERVICES HGB 11.5 (L) 11.6 - 15.0 [facility] g/dL SERVICES HCT 33.8 (L) 35.7 - 45.2 % [facility] MCV 88.5 80.6 - 95.5 fL [facility] MCH 30.1 25.9 - 32.8 pg [facility] MCHC 34.0 31.6 - 35.1 [facility] g/dL SERVICES RDW-SD 43.0 39.0 - 49.9 fL [facility] RDW-CV 13.3 12.0 - 15.5 % [facility] PLT 168 166 - 358 [facility] 10*3/L SERVICES MPV 10.5 9.5 - 12.9 fL [facility] NRBC/100 WBC 0.0 0.0 - 10.0 /100 [facility] WBCs SERVICES NRBC x10^3 <0.01 10*3/L [facility] GRAN MAT (NEUT) % 57.0 % [facility] IMM GRAN % 0.30 % [facility] LYMPH % 34.4 % [facility] MONO % 6.7 % [facility] EOS % 1.1 % [facility] BASO % 0.5 % [facility] GRAN MAT x10^3(ANC) 4.51 1.88 - 7.09 [facility] LABORATORY 10*3/uL SERVICES IMM GRAN x10^3 <0.03 0.00 - 0.06 [facility] 10*3/uL SERVICES LYMPH x10^3 2.72 1.32 - 3.29 [facility] 10*3/uL SERVICES MONO x10^3 0.53 0.33 - 0.92 [facility] 10*3/uL SERVICES EOS x10^3 0.09 0.03 - 0.39 [facility] 10*3/uL SERVICES BASO x10^3 0.04 0.01 - 0.07 [facility] 10*3/uL SERVICES Specimen Blood - VENOUS Performing Organization Address City/State/Zipcode Phone Number [facility] CLIA: [id number], [address] [place], [place] [address] [facility] MAGNESIUM (11/15/2019 5:46 AM CDT) Pathologist Sig nature MAGNESIUM 1.7 1.7 - 2.4 mg/dL [facility] Specimen Blood - VENOUS Performing Organization Address City/State/Zipcode Phone Number [facility] CLIA: [id number], [address] [place], [place] [address] [facility] BASIC METABOLIC PANEL (NA, K, CL, CO2, GLUCOSE, BUN, CREATININE, CA) (11/15/2019 5:46 AM CDT) Pathologist Sig nature NA 137 135 - 145 [facility] mmol/L SERVICES K 3.5 3.5 - 5.0 [facility] mmol/L SERVICES CL 104 98 - 108 mmol/L [facility] CO2 TOTAL 26 23 - 31 mmol/L [facility] AGAP 7 2 - 16 [facility] BUN 15 7 - 23 mg/dL [facility] GLUCOSE 115 (H) 70 - 110 mg/dL [facility] CREATININE 0.53 0.50 - 1.04 [facility] mg/dL SERVICES CALCIUM 8.5 (L) 8.6 - 10.6 [facility] mg/dL SERVICES eGFR Calculation 114.0 mL/min/1.73m2 [facility] (Non- SERVICES [place]) eGFR Calculation 138.2 mL/min/1.73m2 [facility] () SERVICES Specimen Blood - VENOUS Narrative Performed At Association of Glomerular Filtration Rate (GFR) and St aging [facility] of Kidney Disease* + + +------- ------ + | GFR (mL/min/1.73 m2) | With Kidney Damage | Wi thout Kidney Damage + + +------- ------ + | >90 | Stage one | Normal + + +------- ------ + | 60-89 | Stage two | Decreased GFR + + +------- ------ + | 30-59 | Stage three | Stage three + + +------- ------ + | 15-29 | Stage four | Stage four + + +------- ------ + | <15 (or dialysis) | Stage five | Stage five + + +------- ------ + *Each stage assumes the associated GFR level has been in effect for at least three months. Stages 1 to 5, wit h or without kidney disease, indicate chronic kidney disease. Notes: Determination of stages one and two (with eGFR >59mL/min/1.73 m2) requires estimation of kidney damag e for at least three months as defined by structural or func tional abnormalities of the kidney, manifested by either: Pathological abnormalities or Markers of kidney damage (including abnormalities in the composition of the blo od or urine or abnormalities in imaging tests) . Performing Organization Address City/[facility]/Zipcode Phone Number [facility] CLIA: [id number], [address] [place] [address] [facility] URINE CULTURE (11/14/2019 6:46 AM CDT) Pathologist Sig nature URINE CULTURE No aerobic organisms [facility] isolated SERVICES Specimen Urine - URINE, CATHETERIZED Performing Organization Address [facility] Phone Number [facility] CLIA: [id number], [address] [place] [address] [address] [facility] URINALYSIS (11/14/2019 6:46 AM CDT) Pathologist Sig nature APPEARANCE Hazy (A) Clear [facility] COLOR Yellow Yellow [facility] PH 5.0 4.8 - 8.0 [facility] SP GRAVITY >1.060 (H) 1.003 - 1.030 [facility] GLU U QUAL Normal Normal [facility] BLOOD Negative Negative [facility] KETONES Negative Negative [facility] PROTEIN Negative Negative [facility] UROBILIN Normal Normal [facility] BILIRUBIN Negative Negative [facility] NITRITE Negative Negative [facility] [place] 25/uL (A) Negative [facility] RBC/HPF 35 (H) 0 - 3 HPF [facility] WBC/HPF 16 (H) 0 - 5 HPF [facility] BACTERIA Moderate (A) Negative [facility] MUCOUS Slight (A) Negative LPF [facility] SQ EPITH <1 <=2 HPF [facility] Specimen Urine - URINE, CATHETERIZED Performing Organization Address [facility] Phone Number [facility] CLIA: [id number], [address] [place] [address] [address] [facility] HOMOCYSTEINE (11/14/2019 4:42 AM CDT) Pathologist Sig nature Homocysteine 10.4 4.7 - 12.6 umol/L [facility] S Specimen Blood - VENOUS Performing Organization Address [facility]code Phone Number [facility] CLIA: [id number], [address] [place], [place] [address] [facility] CBC WITH DIFFERENTIAL (11/14/2019 4:42 AM CDT) [facility] Sig nature WBC 9.45 4.30 - 11.10 [facility] 10*3/L SERVICES RBC 3.93 3.93 - 5.25 [facility] 10*6/L SERVICES HGB 11.9 11.6 - 15.0 [facility] g/dL SERVICES HCT 34.8 (L) 35.7 - 45.2 % [facility] MCV 88.5 80.6 - 95.5 fL [facility] MCH 30.3 25.9 - 32.8 pg [facility] MCHC 34.2 31.6 - 35.1 [facility] g/dL SERVICES RDW-SD 43.4 39.0 - 49.9 fL [facility] RDW-CV 13.2 12.0 - 15.5 % [facility] PLT 186 166 - 358 [facility] 10*3/L SERVICES MPV 10.9 9.5 - 12.9 fL [facility] NRBC/100 WBC 0.0 0.0 - 10.0 /100 [facility] WBCs SERVICES NRBC x10^3 <0.01 10*3/L [facility] GRAN MAT (NEUT) % 62.5 % [facility] IMM GRAN % 0.30 % [facility] LYMPH % 29.8 % [facility] MONO % 6.5 % [facility] EOS % 0.6 % [facility] BASO % 0.3 % [facility] GRAN MAT x10^3(ANC) 5.90 1.88 - 7.09 [facility] 10*3/uL SERVICES IMM GRAN x10^3 0.03 0.00 - 0.06 [facility] 10*3/uL SERVICES LYMPH x10^3 2.82 1.32 - 3.29 [facility] 10*3/uL SERVICES MONO x10^3 0.61 0.33 - 0.92 [facility] 10*3/uL SERVICES EOS x10^3 0.06 0.03 - 0.39 [facility] 10*3/uL SERVICES BASO x10^3 0.03 0.01 - 0.07 [facility] 10*3/uL SERVICES Specimen Blood - VENOUS Performing Organization Address City/State/Zipcode Phone Number [facility] CLIA: [id number], [address] [place], [place] [address] [facility] Basic Metabolic Panel (NA, K, CL, CO2, GLUCOSE, BUN, CREATININE, CA) (11/14/2019 4:42 AM CDT) NA 137 135 - 145 [facility] mmol/L SERVICES K 3.2 (L)Comment: 3.5 - 5.0 [facility] Slight hemolysis mmol/L SERVICES CL 101 98 - 108 [facility] mmol/L SERVICES CO2 TOTAL 28 23 - 31 [facility] mmol/L SERVICES AGAP 8 2 - 16 [facility] SERVICES BUN 18Comment: Slight 7 - 23 mg/dL [facility] hemolysis SERVICES GLUCOSE 110 70 - 110 [facility] mg/dL SERVICES CREATININE 0.54 0.50 - 1.04 [facility] mg/dL SERVICES CALCIUM 8.9 8.6 - 10.6 [facility] mg/dL SERVICES eGFR Calculation 111.6 mL/min/1.73m2 [facility] (Non- SERVICES [place]) eGFR Calculation 135.3 mL/min/1.73m2 [facility] () SERVICES Specimen Blood - VENOUS Narrative Performed At Association of Glomerular Filtration Rate (GFR) and St aging [facility] of Kidney Disease* + + +------- ------ + | GFR (mL/min/1.73 m2) | With Kidney Damage | Wi thout Kidney Damage + + +------- ------ + | >90 | Stage one | Normal + + +------- ------ + | 60-89 | Stage two | Decreased GFR + + +------- ------ + | 30-59 | Stage three | Stage three + + +------- ------ + | 15-29 | Stage four | Stage four + + +------- ------ + | <15 (or dialysis) | Stage five | Stage five + + +------- ------ + *Each stage assumes the associated GFR level has been in effect for at least three months. Stages 1 to 5, wit h or without kidney disease, indicate chronic kidney disease. Notes: Determination of stages one and two (with eGFR >59mL/min/1.73 m2) requires estimation of kidney damag e for at least three months as defined by structural or func tional abnormalities of the kidney, manifested by either: Pathological abnormalities or Markers of kidney damage (including abnormalities in the composition of the blo od or urine or abnormalities in imaging tests) . Performing Organization Address City/State/Zipcode Phone Number [facility] CLIA: [id number], [address] [place], [place] [address] [facility] Electroencephalogram (EEG) - Duration of test: 20-60 mins (11/14/2019) Narrative Performed At Date and Time of Procedure: 11/14/2019, 8 :39:07-9:02:53 REPORT TECHNICAL SUMMARY: The EEG was recorded digitally. Electrodes were applie d using the International 10/20 System of electrode placement. Eye movements, respiratory excursions and rhythm strip ECG were monit ored on separate channels of the ongoing EEG recording. The occipital dominant rhythm consists of moderate amp litude 8.5-9.5 Hz activity. More anteriorly, similar as well as faster f requencies are present, including low amplitude 18-22 Hz activities i n the anterior leads. There is intermittent focal slowing in the left frontotemporal region, where the frequencies are as slo w as 2 Hz. Drowsiness does not reveal additional ab normalities. Sleep is not seen. Photic stimulation does not elicit addit ional abnormalities. Hyperventilation is not employed as acti vation technique. The ECG lead shows frequent abnormal-appearing wavefor ms which appear to possibly be PVCs. IMPRESSION: This EEG is abnormal due to: 1) focal slowing in the left frontotemporal region, cardona ggestive of a focal disturbance in that region. 2) frequent abnormal-appearing ECG waveforms which fabricio ear to possibly be PVCs, and would be better assessed by a more appropria te method of cardiac monitoring. No electrographic seizures or epileptiform abnormaliti es are seen. The absence of epileptiform abnormalities in one EEG does not necessarily rule out a diagnosis of epilepsy or the potential for epileptic seizures, however. The diagnostic sensitivity can be i ncreased by a repeat study, which would be appropriate if clinically indicated. The fact that sleep is not seen may decrease the diagn ostic sensitivity of the test, as some EEG abnormalities are more common ly seen in sleep. Sleep deprivation before an EEG can sometimes ensure s leep before the EEG, and may therefore be beneficial if indicated. __ Saud Harris MD Date of interpretation: 11/14/2019 AMMONIA, PLASMA (11/13/2019 10:10 PM CDT) Pathologist Sig nature AMMONIA <9 (L) 9 - 33 umol/L [facility] Specimen Blood - VENOUS Performing Organization Address City/[facility] Phone Number [facility] CLIA: [id number], [address] [place] [address] [address] [facility] FOLATE (11/13/2019 10:10 PM CDT) FOLATE SER 10.3Comment: Biotin 3.0 - 20.0 [facility] has been reported ng/mL SERVICES to cause a positive bias, interpret results relative to patient's use of biotin. Specimen Blood - VENOUS Performing Organization Address [facility] Phone Number [facility] CLIA: [id number], [address] [place] [address] [address] [facility] FREE T4 (11/13/2019 10:10 PM CDT) Pathologist Sig nature FREE T4 1.27 0.78 - 2.20 ng/dL: [facility] SERVIC ES Specimen Blood - VENOUS Performing Organization Address [facility] Phone Number [facility] CLIA: [id number], [address] [place] [address] [address] [facility] VITAMIN D, 25-OH (11/13/2019 10:09 PM CDT) Pathologist Sig nature VIT D 25OH 18 (L) 25 - 80 ng/mL [facility] Specimen Blood - VENOUS Narrative Performed At Deficiency: <20 ng/mL [facility] Insufficiency: 20-24 ng/mL Optimal: 25-80 ng/mL Performing Organization Address [facility] Phone Number [facility] CLIA: [id number], [address] [place] [address] [address] [facility] VITAMIN B12, LEVEL (11/13/2019 10:09 PM CDT) Pathologist Sig nature VIT B12 208 (L) 240 - 930 pg/mL [facility] Specimen Blood - VENOUS Narrative Performed At Biotin has been reported to cause a positive bias, int erpret [facility] results relative to patient's use of biotin. Performing Organization Address City/[facility]/Zipcode Phone Number [facility] CLIA: [id number], [address] [place], [place] [address] [facility] VITAMIN B6, PLASMA (11/13/2019 10:08 PM CDT) Pathologist [facility] nature VIT B6 22.3 20.0 - 125.0 [facility] Comment: nmol/L INTERPRETIVE INFORMATION: Vitamin B6 (Pyridoxal 5-Phos phate) Pyridoxal 5'-phosphate measured in a specimen collecte d following an 8-hour or overnight fast accurately indicates vitam in B6 nutritional status. Non-fasting specimen concentration reflects recent vitamin intake. Test developed and characteristics determined by [employer]. See Compliance Statement B: [employer]/ CS Performed by [employer], [address] [place] [id number] [email or web address], Nestor Avina MD, Lab. Director Specimen Blood - VENOUS Performing Organization Address [facility] Phone Number [facility] [address] [place] [address] PROTHROMBIN TIME / INR (11/13/2019 10:06 PM CDT) [facility] PROTIME PATIENT 12.9 (H) 10.1 - 12.6 [facility] Seconds SERVICES INR 1.1Comment: Normal [facility] INR <1.1; Warfarin SERVICES Therapeutic range 2.0 to 3.0 or 2.5 to 3.5, depending upon the indications. Specimen Blood - VENOUS Performing Organization Address [facility]/Zipcode Phone Number [facility] CLIA: [id number], [address] [place] [address] [facility] VITAMIN B1 (THIAMINE), WHOLE BLOOD (11/13/2019 10:06 PM CDT) [facility] Vitamin B1, Whole 66 (L) 70 - 180 [facility] Blood Comment: nmol/L INTERPRETIVE INFORMATION: Vitamin B1, Whole Blood This assay measures the concentration of thiamine diph osphate (TDP), the primary active form of vitamin B1. Approxim ately 90 percent of vitamin B1 present in whole blood is TDP. T hiamine and thiamine monophosphate, which comprise the remaining 1 0 percent, are not measured. Test developed and characteristics determined by [employer]. See Compliance Statement B: [employer]/ CS Performed by [employer], [address] [place], [place] [id number] [email or web address], Nestor Avina MD, Lab. Director Specimen Blood - VENOUS Performing Organization Address [facility]/Zipcode Phone Number [facility] [address] [place] [address] CORTISOL STIMULATION 0 MIN (11/13/2019 10:06 PM CDT) Pathologist Sig nature JU 0 8.5 4.5 - 23.0 ug/dL [facility] Specimen Blood - VENOUS Narrative Performed At [facility] has been reported to cause a positive bias, int erpret [facility] results relative to patient's use of biotin. Performing Organization Address [facility] Phone Number [facility] CLIA: [id number], [address] [place] [address] [address] [facility] IRON PANEL (11/13/2019 10:06 PM CDT) Pathologist Sig nature IRON 73 50 - 160 ug/dL [facility] TIBC 263 250 - 410 ug/dL [facility] % FE SAT 28 20 - 50 % [facility] Specimen Blood - VENOUS Performing Organization Address [facility] Phone Number [facility] CLIA: [id number], [address] [place] [address] [address] [facility] [address] ANGIOGRAM HEAD (11/13/2019 4:02 PM CDT) Specimen Impressions Performed At PACS/VR/DOSE No aneurysm or high-grade stenosis is pr esent in the intracranial or cervical vessels Image quality: The slice thickness is to o thick on the CTA head MIP reconstructions resulting in vessel skipping Narrative Performed At CT ANGIOGRAM HEAD, PACS/VR/DOSE CT ANGIOGRAM NECK HISTORY: Female 69 years Stroke suspecte d, ataxia COMPARISON: CT head dated 11/13/2019 TECHNIQUE: Routine CTA head and neck wer e performed following the administration of 120 mL IV Omnipaque FINDINGS: CTA head: The PICA origin is visualized bilaterally. The basilar artery is normal in caliber. The superior cerebellar arterie s are patent. The posterior cerebral arteries are patent. No sizable posterior com municating arteries are visualized. The distal cervical, petrous, cavernous and supraclino id internal carotid artery segments are patent. The anterior and middle ce rebral arteries are patent. A small anterior communicating a rtery is suspected. CTA NECK: Classic 3 vessel aortic arch anatomy is noted. Mild calcified and noncalcified plaque in the arch and arch vessel origin s result in no more than mild luminal narrowing. The innomin ate and subclavian arteries are patent. The common carotid arteries, carotid bul bs and cervical internal carotid arteries are patent. Mild atheroscleroti c calcifications in the carotid bulbs result in no significant luminal n arrowing. The vertebral arteries are patent from their subclavian origins through the vertebrobasilar junction. The origin of the left vertebral artery is n otably tortuous. The vertebral arteries are codominant. Procedure Note [facility], Radiant Results Inft User - 2019 4:[address] ANGIOGRAM HEAD, CT ANGIOGRAM NECK HISTORY: Female 69 years Stroke suspecte d, ataxia COMPARISON: CT head dated 11/13/2019 TECHNIQUE: Routine CTA head and neck wer e performed following the administration of 120 mL IV Omnipaque FINDINGS: CTA head: The PICA origin is visualized bilaterall y. The basilar artery is normal in caliber. The superior cerebellar arterie s are patent. The posterior cerebral arteries are patent. No sizable posterior communicating arteries are visualized. The distal cervical, petrous, cavernous and supraclinoid internal carotid artery segments are patent. The anterior and middle cerebral arteries are patent. A small anterior communicating a rtery is suspected. CTA NECK: Classic 3 vessel aortic arch anatomy is noted. Mild calcified and noncalcified plaque in the arch and arch vessel origins result in no more than mild luminal narrowing. The innomin ate and subclavian arteries are patent. The common carotid arteries, carotid bul bs and cervical internal carotid arteries are patent. Mild atheroscleroti c calcifications in the carotid bulbs result in no significant luminal n arrowing. The vertebral arteries are patent from their subclavian origins through the vertebrobasilar junction. The origin of the left vertebr al artery is notably tortuous. The vertebral arteries are codominant. IMPRESSION No aneurysm or high-grade stenosis is pr esent in the intracranial or cervical vessels Image quality: The slice thickness is to o thick on the CTA head MIP reconstructions resulting in vessel skip ping Performing Organization Address City/State/Zipcode Phone Number PACS/VR/DOSE CT ANGIOGRAM NECK (11/13/2019 4:02 PM CDT) Specimen Impressions Performed At PACS/VR/DOSE No aneurysm or high-grade stenosis is pr esent in the intracranial or cervical vessels Image quality: The slice thickness is to o thick on the CTA head MIP reconstructions resulting in vessel skipping Narrative Performed At CT ANGIOGRAM HEAD, PACS/VR/DOSE CT ANGIOGRAM NECK HISTORY: Female 69 years Stroke suspecte d, ataxia COMPARISON: CT head dated 11/13/2019 TECHNIQUE: Routine CTA head and neck wer e performed following the administration of 120 mL IV Omnipaque FINDINGS: CTA head: The PICA origin is visualized bilaterally. The basilar artery is normal in caliber. The superior cerebellar arterie s are patent. The posterior cerebral arteries are patent. No sizable posterior com municating arteries are visualized. The distal cervical, petrous, cavernous and supraclino id internal carotid artery segments are patent. The anterior and middle ce rebral arteries are patent. A small anterior communicating a rtery is suspected. CTA NECK: Classic 3 vessel aortic arch anatomy is noted. Mild calcified and noncalcified plaque in the arch and arch vessel origin s result in no more than mild luminal narrowing. The innomin ate and subclavian arteries are patent. The common carotid arteries, carotid bul bs and cervical internal carotid arteries are patent. Mild atheroscleroti c calcifications in the carotid bulbs result in no significant luminal n arrowing. The vertebral arteries are patent from their subclavian origins through the vertebrobasilar junction. The origin of the left vertebral artery is n otably tortuous. The vertebral arteries are codominant. Procedure Note [facility], Radiant Results [facility] User - 2019 4:[address] ANGIOGRAM HEAD, CT ANGIOGRAM NECK HISTORY: Female 69 years Stroke suspecte d, ataxia COMPARISON: CT head dated 11/13/2019 TECHNIQUE: Routine CTA head and neck wer e performed following the administration of 120 mL IV Omnipaque FINDINGS: CTA head: The PICA origin is visualized bilaterall y. The basilar artery is normal in caliber. The superior cerebellar arterie s are patent. The posterior cerebral arteries are patent. No sizable posterior communicating arteries are visualized. The distal cervical, petrous, cavernous and supraclinoid internal carotid artery segments are patent. The anterior and middle cerebral arteries are patent. A small anterior communicating a rtery is suspected. CTA NECK: Classic 3 vessel aortic arch anatomy is noted. Mild calcified and noncalcified plaque in the arch and arch vessel origins result in no more than mild luminal narrowing. The innomin ate and subclavian arteries are patent. The common carotid arteries, carotid bul bs and cervical internal carotid arteries are patent. Mild atheroscleroti c calcifications in the carotid bulbs result in no significant luminal n arrowing. The vertebral arteries are patent from their subclavian origins through the vertebrobasilar junction. The origin of the left vertebr al artery is notably tortuous. The vertebral arteries are codominant. IMPRESSION No aneurysm or high-grade stenosis is pr esent in the intracranial or cervical vessels Image quality: The slice thickness is to o thick on the CTA head MIP reconstructions resulting in vessel skip ping Performing Organization Address City/State/Zipcode Phone Number PACS/VR/DOSE CORONAVIRUS COVID-19 TESTING (11/13/2019 1:21 PM CDT) SARS-CoV-2 Rapid ID Not Detected Not Detected [facility] Specimen Swab - NASOPHARYNGEAL SWAB Narrative Performed At [facility] COVID-19 Assay is an isothermal nucleic [facility] acid amplification test intended for the qualitative detection of nucleic acid from SARS-CoV-2 viral RNA in nasopharyngeal (ADMINISTRATIVE OFFICE ASSISTANT) specimens. It is used under Emergency Use Authorization (EUA) by FDA. The limit of detection (LOD) of the assay is 125 [employer]/mL. A positive result is indicative of the presence of SARS-CoV-2 RNA. Clinical correlation with patient history and other diagnostic information is necessary to determine patient infection status. A negative (Not Detected) result does not preclude SARS-CoV-2 infection. Clinical correlation with patient history and other diagnostic information should be used in patient management decisions. Invalid: Please collect a new specimen for repeat patient testing if clinically indicated. Performing Organization Address City/State/Zipcode Phone Number [facility] CLIA: [id number], [address], [place] [address] XR HIPS 3 VW BILATERAL (11/13/2019 11:43 AM CDT) Specimen Impressions Performed At No acute radiographic abnormality of the hips PACS/VR/DOSE Narrative Performed At EXAM: Bilateral hips 2 views each PACS/VR/DOSE HISTORY: Hip pain TECHNIQUE:An AP view of the pelvis and A P and frog-leg views of the hips are obtained. FINDINGS:No acute abnormality of the hip joints is see n. Shape of the heads of the femora is preserved. No bone lesi on is noted. Multiple phleboliths are seen in the pel vis. Changes of mild facet degenerative disea se are seen in the lower lumbar facet joints. Procedure Note [facility], Radiant Results Inft User - 2019 12:08 PM CDT EXAM: Bilateral hips 2 views each HISTORY: Hip pain TECHNIQUE:An AP view of the pelvis and A P and frog-leg views of the hips are obtained. FINDINGS:No acute abnormality of the hip joints is seen. Shape of the heads of the femora is preserved. No bone lesi on is noted. Multiple phleboliths are seen in the pel vis. Changes of mild facet degenerative disea se are seen in the lower lumbar facet joints. IMPRESSION No acute radiographic abnormality of the hips Performing Organization Address City/State/Zipcode Phone Number PACS/VR/DOSE ADC / C - DRUG SCREEN TRIAGE (11/13/2019 11:06 AM CDT) Pathologist Sig nature BENZO U Negative Negative [facility] REKHA U Negative Negative [facility] AMPHET Negative Negative [facility] THC Negative Negative [facility] METHADONE Negative Negative [facility] Meth U Negative Negative [facility] OPIATES Negative Negative [facility] Cocaine Metabolite Negative Negative [facility] PROPOXY Negative Negative [facility] Tric U Negative Negative [facility] PCP Negative Negative [facility] OXYCOD Negative Negative [facility] Specimen Urine - URINE, CLEAN CATCH Narrative Performed At Urine Drug Cutoff Ranges [facility] Benzodiazepines: 150 ng/mL Barbiturates: 200 ng/mL Amphetamine: 500 ng/mL Cannabinoids: 50 ng/mL Methadone: 200 ng/mL Methamphetamine: 500 ng/mL Opiates: 100 ng/mL or 2000 ng/mL Cocaine: 150 ng/mL Propoxyphene: 300 ng/mL Tricyclics: 300 ng/mL Oxycodone: 100 ng/mL PCP: 25 ng/mL The results are to be used only for medical (i.e., treatment) purposes. Unconfirmed screening results must not be used for non-medical purposes (e.g., employment testing, legal testing). Performing Organization Address [facility] [place] Phone Number [facility] CLIA: [id number], [address] [place] [address] URINALYSIS (11/13/2019 11:06 AM CDT) Pathologist Sig nature APPEARANCE Clear Clear [facility] COLOR Yellow Yellow [facility] PH 6.5 4.8 - 8.0 [facility] SP GRAVITY 1.020 1.003 - 1.030 [facility] GLU U QUAL Negative Negative [facility] BLOOD Negative Negative [facility] KETONES Negative Negative [facility] PROTEIN Negative Negative [facility] UROBILIN 0.2 mg/dL 0-1.0 mg/dL [facility] BILIRUBIN Negative Negative [facility] NITRITE Negative Negative [facility] LEUK WOOD Trace (A) Negative [facility] RBC/HPF <1 0 - 3 HPF [facility] WBC/HPF 5 0 - 5 HPF [facility] BACTERIA Few (A) Negative [facility] SQ EPITH 5 (H) <=1 HPF [facility] Specimen Urine - URINE, CLEAN CATCH Performing Organization Address [facility] [place] Phone Number [facility] CLIA: [id number], [address] [place] [address] Lactic Acid Whole Blood (11/13/2019 10:40 AM CDT) Pathologist Sig nature LACTIC ACID 1.64 0.30 - 2.60 mmol/L [facility] Specimen Blood - VENOUS Performing Organization Address [facility] [place] Phone Number [facility] CLIA: [id number], [address], [place] [address] BLOOD CULTURE SCREEN (11/13/2019 10:39 AM CDT) Blood No organisms isolated No growth [facility] Culture-Aerobic Comment: HOSPITAL Previous preliminary verifie d result was Culture In Progress on 11/13/2019 at 1401 CDT LABORATORY Previous preliminary verifie d result was No growth at 24 hours on 11/14/2019 at 1101 CDT Previous preliminary verifie d result was No growth at 48 hours on 11/15/2019 at 1101 CDT Previous preliminary verifie d result was No growth at 72 hours on 11/16/2019 at 1101 CDT Blood No organisms isolated No growth [facility] Culture-Anaerobic Comment: [facility] Previous preliminary verifie d result was Culture In Progress on 11/13/2019 at 1401 CDT LABORATORY Previous preliminary verifie d result was No growth at 24 hours on 11/14/2019 at 1101 CDT Previous preliminary verifie d result was No growth at 48 hours on 11/15/2019 at 1101 CDT Previous preliminary verifie d result was No growth at 72 hours on 11/16/2019 at 1101 CDT Specimen Blood - ARM, LEFT Performing Organization Address City/State/Zipcode Phone Number [facility] CLIA: [id number], [address], [place] [address] BLOOD CULTURE SCREEN (11/13/2019 10:39 AM CDT) [facility] Blood No organisms isolated No growth [facility] Culture-Aerobic Comment: HOSPITAL Previous preliminary verifie d result was Culture In Progress on 11/13/2019 at 1401 CDT LABORATORY Previous preliminary verifie d result was No growth at 24 hours on 11/14/2019 at 1101 CDT Previous preliminary verifie d result was No growth at 48 hours on 11/15/2019 at 1101 CDT Previous preliminary verifie d result was No growth at 72 hours on 11/16/2019 at 1101 CDT Blood No organisms isolated No growth [facility] Culture-Anaerobic Comment: H[facility]PITAL Previous preliminary verifie d result was Culture In Progress on 11/13/2019 at 1401 CDT LABORATORY Previous preliminary verifie d result was No growth at 24 hours on 11/14/2019 at 1101 CDT Previous preliminary verifie d result was No growth at 48 hours on 11/15/2019 at 1101 CDT Previous preliminary verifie d result was No growth at 72 hours on 11/16/2019 at 1101 CDT Specimen Blood - ARM, LEFT Performing Organization Address [facility] Phone Number [facility] CLIA: [id number], [address], [place] [address] XR CHEST 1 VW (11/13/2019 10:21 AM CDT) Specimen Narrative Performed At EXAM: XR CHEST 1 VW PACS/VR/DOSE HISTORY: shortness of breath COMPARISON: None. FINDINGS: The heart and great vessels are normal except for aort ic arteriosclerosis, and the lungs are well expanded and clear. A metallic screw is present in the right shoulder. Procedure Note [facility], Radiant Results Inft User - 2019 10:24 AM CDT EXAM: XR CHEST 1 VW HISTORY: shortness of breath COMPARISON: None. FINDINGS: The heart and great vessels are normal e xcept for aortic arteriosclerosis, and the lungs are well expanded and jens r. A metallic screw is present in the right shoulder. Performing Organization Address [facility] Phone Number PACS/VR/DOSE GLYCOSYLATED HEMOGLOBIN (A1C) (11/13/2019 10:12 AM CDT) Pathologist Sig nature HGB A1C 5.7 4.0 - 6.0 % [facility] Specimen Blood - VENOUS Narrative Performed At %A1C (NGSP) Interpretation (ADA) [facility] LAB[facility] 4.8-5.6 Normal or (Non-Diabetic Ra nge) 5.7-6.4 Increased Risk (Pre-Diabet ic) >6.5 Diabetes Indicated Performing Organization Address [facility] Phone Number [facility] CLIA: [id number], [address], [place] [address] CBC WITH DIFFERENTIAL (11/13/2019 10:12 AM CDT) Pathologist Sig nature WBC 10.04 4.30 - 11.10 [facility] 10*3/L HOSPITAL LABORATORY RBC 4.56 3.93 - 5.25 [facility] 10*6/L [facility] LABORATORY HGB 13.8 11.6 - 15.0 [facility] g/dL HOSPITAL LABORATORY HCT 39.7 35.7 - 45.2 % [facility] MCV 87.1 80.6 - 95.5 fL [facility] MCH 30.3 25.9 - 32.8 pg [facility] MCHC 34.8 31.6 - 35.1 [facility] g/dL [facility] LAB[facility]AT[facility] RDW-SD 42.4 39.0 - 49.9 fL [facility] RDW-CV 13.4 12.0 - 15.5 % [facility] PLT 207 166 - 358 [facility] 10*3/L [facility] MPV 11.5 9.5 - 12.9 fL [facility] NRBC/100 WBC 0.0 0.0 - 10.0 /100 [facility] WBCs [facility] LAB[facility]ATORY NRBC x10^3 <0.01 10*3/L [facility] GRAN MAT (NEUT) % 76.1 % [facility] IMM GRAN % 0.30 % [facility] LYMPH % 17.4 % [facility] MONO % 5.0 % [facility] EOS % 0.8 % [facility] BASO % 0.4 % [facility] GRAN MAT x10^3(ANC) 7.64 (H) 1.88 - 7.09 [facility] 10*3/uL HOSPITAL LABORATORY IMM GRAN x10^3 0.03 0.00 - 0.06 [facility] 10*3/uL HOSPITAL LAB[facility]ORY LYMPH x10^3 1.75 1.32 - 3.29 [facility] 10*3/uL HOSPITAL LAB[facility]ORY MONO x10^3 0.50 0.33 - 0.92 [facility] 10*3/uL HOSPITAL LAB[facility]ORY EOS x10^3 0.08 0.03 - 0.39 [facility] 10*3/uL HOSPITAL LAB[facility]ORY BASO x10^3 0.04 0.01 - 0.07 [facility] 10*3/uL [facility] LABORAT[facility] Specimen Blood - VENOUS Performing Organization Address City/State/Zipcode Phone Number [facility] CLIA: [id number], [address], [place] [address] LIPID PANEL ([id number])(TOTAL CHOLESTEROL, TRIGLYCERIDES, HDL) (11/13/2019 10:11 AM CDT) Pathologist Sig nature CHOL 209 (H) 120 - 200 mg/dL [facility] HDL 49 (L) >50 mg/dL [facility] HDLC RATIO 4.3 <=4.5 [facility] TRIG 128 30 - 170 mg/dL [facility] LDL CHOL 134 <=160 mg/dL [facility] VLDL 26 5 - 60 mg/dL [facility] Specimen Blood - VENOUS Performing Organization Address City/[facility] Phone Number [facility] CLIA: [id number], [address] [place] [address] FERRITIN SERUM (11/13/2019 10:11 AM CDT) Pathologist Sig nature FERRITIN 248.0 11.0 - 264.0 ng/mL [facility] Specimen Blood - VENOUS Narrative Performed At Biotin has been reported to cause a negative [facility] bias, interpret results relative to patient's use of biotin. Performing Organization Address [facility] [place] Phone Number [facility] CLIA: [id number], [address] [place] [address] THYROID STIMULATING HORMONE (11/13/2019 10:11 AM CDT) Pathologist Sig nature TSH 2.12 0.45 - 4.70 mIU/L [facility] Specimen Blood - VENOUS Performing Organization Address City/[facility] Phone Number [facility] CLIA: [id number], [address] [place] [address] Magnesium Serum (11/13/2019 10:11 AM CDT) Pathologist Sig nature MAGNESIUM 1.9Comment: Slight 1.7 - 2.4 mg/dL [facility] LABORATORY Specimen Blood - VENOUS Performing Organization Address [facility] Phone Number [facility] CLIA: [id number], [address] [place] [address] TROPONIN I (11/13/2019 10:11 AM CDT) Pathologist Sig nature TROPONIN I <0.012 <=0.034 ng/mL [facility] Specimen Blood - VENOUS Narrative Performed At Equal or Less than 0.034 ng/ml---Normal [facility] Note: Cardiac troponin begins to rise 3-4 hours after the onset of ischemia. Repeat in 4-6 hours if the sample was drawn within 3-4 hours of the onset of the symptom and found normal. Between 0.035 and 0.120 ng/mL--- Borderline. Questionable myocardial injury or necros is Note: Serial measurement may be necessary to confirm or exclude the diagnosis of myocardial injury or necrosis; Clinical correlation (symptoms, EKGs, imaging studies, and others) required; Repeat in 4-6 hours if clinically indicated. Equal or Higher than 0.121 ng/mL---Abnormal. Myocardial Injury or Necrosis Likely Biotin has been reported to cause a negative bias, interpret results relative to patient's use of biotin. Performing Organization Address City/[facility]/Zipcode Phone Number [facility] CLIA: [id number], [address] N-TERMINAL PRO-BNP (11/13/2019 10:11 AM CDT) Pathologist Sig nature NT-proBNP 133 (H) <=125 pg/mL [facility] Specimen Blood - VENOUS Narrative Performed At Biotin has been reported to cause a negative [facility] LAB[facility] bias, interpret results relative to patient's use of biotin. Performing Organization Address [facility]/Zipcode Phone Number [facility] CLIA: [id number], [address] COMP. METABOLIC PANEL ([id number]) (11/13/2019 10:11 AM CDT) Pathologist Sig nature NA 140 135 - 145 [facility] mmol/L [facility] K 3.5 3.5 - 5.0 [facility] mmol/L [facility] CL 101 98 - 108 mmol/L [facility] CO2 TOTAL 31 23 - 31 mmol/L [facility] AGAP 8 2 - 16 [facility] BUN 14 7 - 23 mg/dL [facility] GLUCOSE 162 (H) 70 - 110 mg/dL [facility] CREATININE 0.53 0.50 - 1.04 [facility] mg/dL [facility] TOTAL BILI 1.1 0.1 - 1.1 mg/dL [facility] CALCIUM 9.8 8.6 - 10.6 [facility] mg/dL [facility] T PROTEIN 7.2 6.3 - 8.2 g/dL [facility] ALBUMIN 4.3 3.5 - 5.0 g/dL [facility] ALK PHOS 63 34 - 122 U/L [facility] ALTv 13 5 - 35 U/L [facility] AST(SGOT) 23 13 - 40 U/L [facility] eGFR Calculation 114.0 mL/min/1.73m2 [facility] [place]) eGFR Calculation 138.2 mL/min/1.73m2 [facility] () [facility] Specimen Blood - VENOUS Narrative Performed At Association of Glomerular Filtration Rate (GFR) [facility] LAB[facility] and Staging of Kidney Disease* + + +- + | GFR (mL/min/1.73 m2) | With Kidney Damage | Without Kidney Damage + + +- + | >90 | Stage one | Normal + + +- + | 60-89 | Stage two | Decreased GFR + + +- + | 30-59 | Stage three | Stage three + + +- + | 15-29 | Stage four | Stage four + + +- + | <15 (or dialysis) | Stage five | Stage five + + +- + *Each stage assumes the associated GFR level has been in effect for at least three months. Stages 1 to 5, with or without kidney disease, indicate chronic kidney disease. Notes: Determination of stages one and two (with eGFR >59mL/min/1.73 m2) requires estimation of kidney damage for at least three months as defined by structural or functional abnormalities of the kidney, manifested by either: Pathological abnormalities or Markers of kidney damage (including abnormalities in the composition of the blood or urine or abnormalities in imaging tests). Performing Organization Address City/State/Zipcode Phone Number [facility] CLIA: [id number], [address], [place] [address] [address] HEAD WO CONTRAST (11/13/2019 10:00 AM CDT) Specimen Impressions Performed At PACS/VR/DOSE Background mild ischemic small vessel di sease Age-indeterminate lacunar infarcts in th e bilateral basal ganglia Preliminary Report Dictated by Resident: Rylee Barbosa I, Matthew Garrett MD., have reviewe d this study and agree with the above report. Narrative Performed At CT HEAD WO CONTRAST PACS/VR/DOSE HISTORY: Altered mental status (AMS), un clear cause COMPARISON: None TECHNIQUE: Contiguous axial CT images of the head were obtained without the use of intravenous contrast. Coronal and sagittal refo rmats were provided. FINDINGS: The ventricles and cerebral sulci are normal in calibe r and configuration. No hydrocephalus, midline shift or patho logical extra-axial fluid collection is present. The basal cistern s are unremarkable. There is no acute intracranial hemorrhage or significa nt mass effect. The collins-white matter differentiation is preserved. Scatte red hypodensities in the marquis radiata, periventricular and deep white mat ter are nonspecific but most likely represent sequela of sma ll vessel ischemia. Age-indeterminate lacunar infarcts are s een in the basal ganglia. Nonspecific mineralization is also seen within the lentiform nuclei bilaterally. The mastoid air cells are underpneumatiz ed. The visualized paranasal air sinuses are clear. The calvarium and central skull bas e are unremarkable. Atherosclerosis is noted in the vertebra l arteries and carotid siphons. Procedure Note [facility], Radiant Results Inft User - 2019 10:[address] HEAD WO CONTRAST HISTORY: Altered mental status (AMS), un clear cause COMPARISON: None TECHNIQUE: Contiguous axial CT images of the head were obtained without the use of intravenous contrast. Coronal and sagittal reformats were provided. FINDINGS: The ventricles and cerebral sulci are no rmal in caliber and configuration. No hydrocephalus, midline shift or patho logical extra-axial fluid collection is present. The basal cistern s are unremarkable. There is no acute intracranial hemorrhag e or significant mass effect. The collins-white matter differentiation is pre served. Scattered hypodensities in the marquis radiata, periventricular and deep white matter are nonspecific but most likely represent sequela of sma ll vessel ischemia. Age-indeterminate lacunar infarcts are s een in the basal ganglia. Nonspecific mineralization is also seen within the lentiform nuclei bilaterally. The mastoid air cells are underpneumatiz ed. The visualized paranasal air sinuses are clear. The calvarium and charla tral skull base are unremarkable. Atherosclerosis is noted in the vertebra l arteries and carotid siphons. IMPRESSION Background mild ischemic small vessel di sease Age-indeterminate lacunar infarcts in th e bilateral basal ganglia Preliminary Report Dictated by Resident: Rylee Barbosa I, Matthew Garrett MD., have reviewe d this study and agree with the above report. 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 Flank pain Abdominal pain, unspecified site Confusion Unspecified psychosis Pain of right hip joint Right sided weakness Muscle weakness (generalized) AMS (altered mental status) documented in this encounter Administered Medications Medication Order MAR Action Action Date Dose Rate Site acetaminophen (TYLENOL) tablet Given 11/14/2019 5:31 PM CDT 650 mg 650 mg 650 mg, Oral, Q6HPRN, Starting Mon11/13/19 at 1505, Until Discontinued, Routine, Pain (scale 1-3) aspirin chewable tablet 81 mg Given 11/20/2019 8:06 AM CDT 81 mg 81 mg, Oral, DAILY, First dose on Mon11/14/19 at 0900, Until Discontinued, Routine Given 11/19/2019 8:29 AM CDT 81 mg Given 11/18/2019 9:03 AM CDT 81 mg atorvastatin (LIPITOR) tablet 80 mg Given 11/19/2019 8:57 PM CDT 80 mg 80 mg, Oral, QHS, First dose on Mon11/19/19 at 2100, Until Discontinued, Routine clopidogreL (PLAVIX) tablet 75 mg Given 11/20/2019 8:06 AM CDT 75 mg 75 mg, Oral, DAILY, First dose on Mon11/20/19 at 0900, Until Discontinued, Routine ergocalciferol (vitamin d2) Given 11/14/2019 5:31 PM CDT 50,000 Units (CALCIFEROL) capsule 50,000 Units 50,000 Units, Oral, QWEEKLY, First dose on Mon11/14/19 at 0900, Until Discontinued, Routine famotidine (PEPCID) tablet 40 mg Given 11/20/2019 10:39 AM CDT 40 mg 40 mg, Oral, DAILY, First dose on Mon11/14/19 at 0900, Until Discontinued, Routine Given 11/19/2019 8:29 AM CDT 40 mg Given 11/18/2019 9:03 AM CDT 40 mg FLUoxetine (PROZAC) capsule 20 mg Given 11/20/2019 8:06 AM CDT 20 mg 20 mg, Oral, DAILY, First dose on 11/16/19 at 0900, Until Discontinued, Routine Given 11/19/2019 8:29 AM CDT 20 mg Given 11/18/2019 9:03 AM CDT 20 mg heparin (porcine) injection Given 11/20/2019 8:06 AM CDT 5,000 Units Abdomen-SC 5,000 Units 5,000 Units, Subcutaneous, Q12H, First dose on 11/16/19 at 2000, Until Discontinued, Routine Given 11/19/2019 8:58 PM CDT 5,000 Units Abdo men-SC Given 11/19/2019 8:29 AM CDT 5,000 Units Abdo men-SC lisinopril (PRINIVIL,ZESTRIL) tablet 5 m g Given 11/20/2019 8:06 AM CDT 5 mg 5 mg, Oral, DAILY, First dose on Mon11/19/19 at 0900, Until Discontinued, Routine Given 11/19/2019 8:29 AM CDT 5 mg Saline Bubble Study Given 11/14/2019 11:31 AM CDT 6 mL 6 mL, Injection, SEE-INSTRUCTIONS, Starting [facility] 11/14/19 at 1215, Until Discontinued, Routine Saline Bubble Study Given 11/14/2019 11:30 AM CDT 6 mL 6 mL, Injection, SEE-INSTRUCTIONS, Starting [facility] 11/14/19 at 1215, Until Discontinued, Routine thiamine (VITAMIN B1) tablet 100 mg Given 11/20/2019 8:06 AM CDT 100 mg 100 mg, Oral, DAILY, First dose on Mon11/18/19 at 0900, Until Discontinued, Routine Given 11/19/2019 8:29 AM CDT 100 mg Given 11/18/2019 9:03 AM CDT 100 mg vitamin B-12 (CYANOCOBALAMIN) tablet Given 11/20/2019 8:06 AM C DT 1,000 mcg 1,000 mcg 1,000 mcg, Oral, DAILY, First dose on Mon11/18/19 at 0900, Until Discontinued, Routine Given 11/19/2019 8:29 AM CDT 1,000 mcg Given 11/18/2019 9:03 AM CDT 1,000 mcg Medication Order MAR Action Action Date Dose Rate Site aspirin tablet 325 mg Given 11/13/2019 9:40 PM CDT 325 mg 325 mg, Oral, ONCE, 1 dose, Mon11/13/19 at 2230, Routine atorvastatin (LIPITOR) tablet 40 mg Given 11/18/2019 7:54 PM CDT 40 mg 40 mg, Oral, QHS, First dose on Mon11/14/19 at 2100, Until Discontinued, Routine Given 11/17/2019 10:26 PM CDT 40 mg Given 11/16/2019 8:14 PM CDT 40 mg carvediloL (COREG) tablet 25 mg Given 11/13/2019 5:02 PM CDT 25 mg 25 mg, Oral, BID MEALS, First dose on Mon11/13/19 at 1700, Until Discontinued, Routine cefTRIAXone (ROCEPHIN) 1,000 mg in NaCl Given 11/14/2019 3:27 P M CDT 1,000 mg 0.9% (NS) 50 mL MINI-BAG 1,000 mg, IV Piggyback, Q24H ABX, 5 doses, First dose on Mon11/14/19 at 1315, Last dose on Mon11/18/19 at 1315, 50 mL, Reason for Anti-Infective: Documented Infection, Documented Infection Site: Urine, Duration of Therapy: 7 days contrast previously administered 0 mL Given 11/13/2019 4:00 PM CDT Intravenous, ONCE, 1 dose, Mon11/13/19 at 1615, Routine cyanocobalamin (VITAMIN Given 11/14/2019 9:40 AM CDT 1,000 mcg Right Deltoid-IM B12) injection 1,000 mcg 1,000 mcg, Intramuscular, ONCE, 1 dose, Mon11/14/19 at 0815, Routine escitalopram oxalate (LEXAPRO) tablet 20 mg Given 11/18/2019 9:03 AM CDT 20 mg 20 mg, Oral, DAILY, First dose on Mon11/14/19 at 0900, Until Discontinued, Routine Given 11/17/2019 8:51 AM CDT 20 mg Given 11/16/2019 8:33 AM CDT 20 mg FENTanyl PF (SUBLIMAZE (PF)) injection Given 11/19/2019 2:47 PM CDT 25 mcg Slow IV Push, TITRATE - FOR PROCEDURE USE, 1 dose, Starting Mon11/19/19 at 1447, Until Mon11/19/19 at 1447, Routine heparin (porcine) injection Given 11/15/2019 9:34 AM CDT 5,000 Units Abdomen-SC 5,000 Units 5,000 Units, Subcutaneous, BID, First dose on Mon11/14/19 at 0800, Until Discontinued, Routine Given 11/14/2019 9:47 PM CDT 5,000 Units Abdo men-SC Given 11/14/2019 9:36 AM CDT 5,000 Units Abdo men-SC iohexol (OMNIPAQUE 350 BULK-100 mL) Given 11/13/2019 4:00 PM CD T 100 mL injection 100 mL 100 mL, Intravenous, ONCE, 1 dose, [facility] 11/13/19 at 1615, Routine KCL (KLOR-CON M20) tablet 40 mEq Given 11/14/2019 9:35 AM CDT 40 mEq 40 mEq, Oral, ONCE, 1 dose, Mon11/14/19 at 0715, Routine KCL (POTASSIUM CHLORIDE) 40 mEq in NaCl 0.9% Given 10:04 AM CDT 40 mEq (NS) piggyback 40 mEq, IV Piggyback, ONCE, 1 dose, Hayley 11/14/19 at 0815, 250 mL lidocaine 4% (XYLOCAINE) 4 % (40 mg/mL) Given 11/19/2019 2:44 P M CDT 10 mL topical solution Topical, TITRATE - FOR PROCEDURE USE, 1 dose, Starting Mon11/19/19 at 1444, Until Mon11/19/19 at 1444, Routine lidocaine-epinephrine (XYLOCAINE WITH Given 11/15/2019 2:17 PM CDT 20 mL Chest EPINEPHRINE) 1 %-1:100,000 injection TITRATE - FOR PROCEDURE USE, 1 dose, Starting Mon11/15/19 at 1417, Until Mon11/15/19 at 1417, Routine lisinopril (PRINIVIL,ZESTRIL) tablet 2.5 mg Given 11/16/2019 8:31 AM CDT 2.5 mg 2.5 mg, Oral, DAILY, First dose on Mon11/14/19 at 0900, Until Discontinued, Routine Given 11/15/2019 9:00 AM CDT 2.5 mg Given 11/14/2019 9:35 AM CDT 2.5 mg lisinopril (PRINIVIL,ZESTRIL) tablet 2.5 mg Given 11/18/2019 9:03 AM CDT 2.5 mg 2.5 mg, Oral, DAILY, First dose on 11/17/19 at 0900, Until Discontinued, Routine Given 11/17/2019 8:51 AM CDT 2.5 mg lisinopril (PRINIVIL,ZESTRIL) tablet 2.5 mg Given 11/18/2019 1:49 PM CDT 2.5 mg 2.5 mg, Oral, ONCE, 1 dose, 11/18/19 at 1045, Routine magnesium sulfate in water 2 gram/50 mL (4 %) New Bag 9:34 AM CDT 2 g infusion 2 g 2 g, IV Piggyback, ONCE, 1 dose, 11/15/19 at 0715, Routine midazolam (VERSED) injection Given 11/19/2019 2:47 PM CDT 1 mg IV Push, TITRATE - FOR PROCEDURE USE, 1 dose, Starting 11/19/19 at 1447, Until 11/19/19 at 1447, Routine NaCl 0.9% (NS) bolus infusion New Bag 11/19/2019 2:26 PM CDT 250 mL 50 mL/hr IV Piggyback, CONTINUOUS PRN, Starting 11/19/19 at 1426, Until 11/19/19 at 1426, STAT NaCl 0.9% (NS) IV infusion 1,000 New Bag 11/14/2019 9:46 PM C DT 1,000 mL 75 mL/hr mL at 75 mL/hr, IV Infusion, CONTINUOUS, Starting 11/13/19 at 2230, Until 11/16/19 at 1051, Routine New Bag 11/13/2019 11:23 PM CDT 1,000 mL 75 mL/hr perflutren protein-A microsphr (OPTISON) Given 11/14/2019 11:35 AM CDT 3 mL injection 3 mL 3 mL, IV Push, ONCE, 1 dose, Hayley 11/14/19 at 1315, Routine Saline Bubble Study Given 11/19/2019 2:57 PM CDT 6 mL Injection, TITRATE - FOR PROCEDURE USE, 1 dose, Starting 11/19/19 at 1457, Until 11/19/19 at 1457, Routine Saline Bubble Study Given 11/19/2019 2:57 PM CDT 6 mL Injection, TITRATE - FOR PROCEDURE USE, 1 dose, Starting 11/19/19 at 1457, Until 11/19/19 at 1457, Routine vancomycin 1000 mg in NS 200 mL RTU IV Given 11/16/2019 8:29 AM CDT 1,000 mg Piggyback 1,000 mg 1,000 mg (rounded from 918 mg = 15 mg/kg 61.2 kg), IV Piggyback, ONCE, 1 dose, 11/16/19 at 0200, Reason for Anti-Infective: Surgical Prophylaxis, Surgical Prophylaxis: Other (see Comments), Duration of therapy: within 24 hours of surgery vancomycin 1000 mg in NS 200 mL RTU IV Given 11/15/2019 2:18 PM CDT 1 g Piggyback IV Piggyback, TITRATE - FOR PROCEDURE USE, 1 dose, Starting Mon11/15/19 at 1418, Until Mon11/15/19 at 1418 vitamin B-12 (CYANOCOBALAMIN) tablet 500 Given 11/17/2019 8:52 AM CDT 500 mcg mcg 500 mcg, Oral, DAILY, First dose on Mon11/15/19 at 1000, Until Discontinued, Routine Given 11/16/2019 8:31 AM CDT 500 mcg Given 11/15/2019 12:52 PM CDT 500 mcg documented in this encounter Insurance Payer Benefit Plan / Subscriber ID Effective Dates Phone Addre ss Type Group MEDICARE MEDICARE PART xxxxxxxxxxx 2014-Prese [phone] Medicare [place] [id number] [place] [id number] documented as of this encounter
[2019-11-20] MEDS ORDERED: ACETAMINOPHEN 500 MG TAB PO PRN (19:56)
[2019-11-20] MEDS ORDERED: TRAMADOL HCL 50 MG TAB PO PRN (19:56)
[2019-11-20] MEDS: ATORVASTATIN 80 MG TAB PO SCH (20:34)
[2019-11-21 03:37] LABS: Urine Appearance TURBID; Urine Blood NEGATIVE (NEG); Urine Color DK YELLOW; Urine Glucose NEGATIVE (NEG); Urine Protein NEGATIVE (NEG); Urine Specific Gravity >=1.030 (1.005-1.030); Urine Urobilinogen 0.2 mg/dL (0.2-1.0); Urine pH 5.5 (5.0-7.0)
[2019-11-21 03:46] LABS: Urine Bilirubin NEGATIVE (NEG)
[2019-11-21 03:50] LABS: Urine Culture Reflex Order NOT NEEDED
[2019-11-21 03:51] LABS: Urine Amorphous Sediment 4+ /HPF (NONE SEEN); Urine Urothelial Cells <5 /HPF (NONE SEEN)
[2019-11-21 03:52] LABS: Urine Bacteria <20 /HPF (<20); Urine RBC NONE SEEN /HPF (NONE SEEN)
[2019-11-21 06:02] LABS: Absolute Lymphocytes (CBC) 1.9 K/uL (0.7-4.9); Basophils % 0.5 % (0-1.3); Hematocrit 38.3 % (36.0-45.0); Lymphocytes % 19.9 % (15.3-44.8); MPV 9.4 fL (7.6-11.3); RBC Red Blood Cell Count 4.33 M/uL (3.86-4.86)
[2019-11-21 07:19] LABS: Potassium 3.1 mmol/L (3.5-5.1); Sodium Level 141 mmol/L (136-145)
[2019-11-21 07:20] LABS: Albumin 3.3 g/dL (3.4-5.0); BUN Blood Urea Nitrogen 22 mg/dL (7-18); Bicarbonate 26 mmol/L (21-32); Glucose Level 89 mg/dL (74-106); Magnesium 2.2 mg/dL (1.8-2.4); Prealbumin 18.6 mg/dL (20-40)
[2019-11-21] MEDS: THIAMINE HCL 100 MG TABLET PO SCH (07:42)
[2019-11-21] MEDS: lisinopriL 5 MG TAB PO SCH (07:42)
[2019-11-21] MEDS: VITAMIN D 1000 UNIT TAB PO SCH (07:42)
[2019-11-21] MEDS: CLOPIDOGREL 75 MG TABLET PO SCH (07:42)
[2019-11-21] MEDS: ASPIRIN 81 MG CHEWABLE TABLET PO SCH (07:43)
[2019-11-21] MEDS: FLUOXETINE 20 MG CAP PO SCH (07:43)
[2019-11-21] MEDS: CYANOCOBALAMIN 1,000 MCG TAB PO SCH (07:43)
[2019-11-21] MEDS: ENOXAPARIN 30 MG/0.3 ML SQ SCH (16:31)
[2019-11-21 16:47] LABS: Absolute Lymphocytes (CBC) 1.5 K/uL (0.7-4.9); Basophils % 0.4 % (0-1.3); Hematocrit 36.8 % (36.0-45.0); Lymphocytes % 13.5 % (15.3-44.8); MPV 9.7 fL (7.6-11.3); RBC Red Blood Cell Count 4.17 M/uL (3.86-4.86)
[2019-11-21 17:07] LABS: Albumin 3.1 g/dL (3.4-5.0); Magnesium 2.1 mg/dL (1.8-2.4); Prealbumin 17.3 mg/dL (20-40)
[2019-11-21 17:08] LABS: Potassium 2.8 mmol/L (3.5-5.1)
--- NOTE | 2019-11-21 17:16 | R.HP ---
FACILITY: [facility] ENCOUNTER DATE AND TIME: 11/21/2019 17:08 (CDT) MR#: [id number] NAME JULIANN MERRITT ADDRESS: [address] [place] [address] CITY: [place] [address]IP [id number] PHONE: DATE OF : 1950 AGE: 69 SSN# [id number] GENDER: Female DEXTERITY Right-handed MARITAL STATUS RACE White PRE-HOSPITAL LIVING SETTING 01 - Home (private home/apt. board/care, assisted living, shelter, transitional living) PRE-HOSPITAL LIVING WITH Other ENCOUNTER PHYSICIAN: Dr. Omar Barone M.D. REFERRING DOCTOR: jacob Wolff DATE OF ADMISSION: 11/20/2019 19:16 (CDT) REFERRING FACILITY [facility] HOME TYPE AND DETAILS: Type of home: single family house # of steps to enter the residence: 0 # of levels in the residence: 1 # of steps within the residence: 1 ONSET DATE: 11/13/2019 PRIMARY DIAGNOSIS-RELATED SURGERIES: No surgeries related to the primary diagnosis were performed. HISTORY OF PRESENT ILLNESS (HPI): Pt. is a 69 yo Right-handed white female. On 11/13/2019 Pt. presented to [facility] with sudden onset of right-side weakness. Her impairment category is Stroke 01 - Right Body (Left Brain) (01.2). Pre-morbidly, Pt. was independent/mod-I in Transfers Control, Locomotion, and Self-Care; and she had good Balance, Safety Awareness, Social Cognition, and Communication. Currently, she has deficits of Transfers Control, Balance, Safety Awareness, Locomotion, Self-Care, S ocial Cognition, and Communication. Pt. is now referred to [facility] for acute in-patient rehabilitation in order to maximize patient's functional independence in activities of daily living, strength, ROM, and mobi lity. Patient has realistic goal of being discharged at assistance level 6-Елена to reside at Home with Ot er. MEDICATION ALLERGIES: CODEINE ENVIRONMENTAL ALLERGIES: None Known - Substance Allergies None Known - Other Allergies None Known PAST MEDICAL HISTORY: depression HTN arthritis thyroid nodule PAST SURGICAL HISTORY: Cholecystectomy HYSTERECTOMY FAMILY HISTORY: Family history is not contributory. REVIEW OF SYSTEMS: - Gen No Chills Fatigue No Fever - Eyes No Double Vision No itchiness - ENMT No Difficulty Swallowing - CVS No Chest Discomfort No Chest Pain Fatigue No Weight Gain - Resp No Cough No Shortness of Breath - GI Continent No Abdominal Pain No Constipation No Diarrhea - Continent No Kidney Pain No Painful Urination No Urinary Urgency - MSK No Joint Pain Muscle Cramps Stiffness - Skin No Itching No Rash No Suspicious Lesions - Neuro No Coordination Difficulty No Difficulty with Concentration No Memory Loss No Seizures Weakness - Psych No Anxiety No Depression No HIV Exposure No Persistent Infections No Seasonal Allergies - Endo No Cold/Heat Intolerance No Excessive Hunger No Excessive Thirst No Excessive Urination PHYSICAL EXAM - Gen Alert and awake Lying in bed No apparent distress Oriented to: person, time, and place - Skin No skin breakdown. Normacephalic - Eyes No abnormalities - ENMT No abnormalities - Neck No abnormalities - CVS RRR - Chest No abnormalities - Resp Clear to auscultation - Abd Soft - GI Non distended Deferred - No abnormalities - Ext No significant edema - MSK 4+/5 weakness in left upper and lower extremity - Neuro 4/5 strength right upper and lower extremities. - Psych No abnormalities VITAL SIGNS Temperature: 98.8 F SBP/DBP: 147/70 Pulse: 73 Resp: 16 NURSING: - Shower allowing shower - Bladder care per protocol - Skin care per protocol PRECAUTIONS: - Weight Bearing Precaution WBAT both LE ACTIVITIES OOB only with supervision QI SCORES: - Self-Care A. Eating 05-Setup or clean-up assistance B. Oral hygiene 05-Setup or clean-up assistance C. Toileting hygiene 04-Supervision or touching assistance E. Shower/bathe self 03-Partial/moderate assistance F. Upper body dressing 05-Setup or clean-up assistance G. Lower body dressing 03-Partial/moderate assistance H. Putting on/taking off footwear 03-Partial/moderate assistance - Mobility A. Roll left and right 04-Supervision or touching assistance B. Sit to lying 03-Partial/moderate assistance C. Lying to sitting on side of bed 03-Partial/moderate assistance D. Sit to stand 03-Partial/moderate assistance E. Chair/[id number] transfer 03-Partial/moderate assistance F. Toilet transfer 03-Partial/moderate assistance G. Car transfer 88-Not attempted due to medical condition or safety concerns I. Walk 10 feet 04-Supervision or touching assistance J. Walk 50 feet with two turns 04-Supervision or touching assistance K. Walk 150 feet 88-Not attempted due to medical condition or safety concerns L. Walking 10 feet on uneven surfaces 88-Not attempted due to medical condition or safety concerns M. 1 step (curb) 88-Not attempted due to medical condition or safety concerns N. 4 steps 88-Not attempted due to medical condition or safety concerns O. 12 steps 88-Not attempted due to medical condition or safety concerns P. Picking up object 88-Not attempted due to medical condition or safety concerns - Bladder and Bowel Bladder continence 0-Always continent Bowel continence 0-Always continent - Endurance Poor - Balance Poor - Safety Awareness Poor CURRENT FUNC. DEFICITS: Self-Care, Mobility, Endurance, Balance, and Safety Awareness MEDICATIONS: - Other See attached MAR (Medication Administration Record) ASSESSMENT: Patient has realistic goal of being discharged at assistance level 6-Елена to reside at Home with [facility] er. REHAB PLAN: for Dementia, TBI, Stroke, or others - Physical Therapy Gait dysfunction - to improve, our physical therapists will perform initial evaluation of pt's status upon admission and devise an individualized program for Gait Training, and Wheel Chair mobility Inability to transfer - to improve, our physical therapists will perform initial evaluation of pt's s tatus upon admission and devise an individualized program for Bed mobility Need for home safety evaluation - to improve, our physical therapists will perform initial evaluation of pt's status upon admission and devise an individualized program for Home Evaluation Need in caregiver upon discharge - to improve, our physical therapists will perform initial evaluatio n of pt's status upon admission and devise an individualized program for Caregiver Training Edema - to improve, our physical therapists will perform initial evaluation of pt's status upon admi ssion and devise an individualized program for Elevation Training, and Lymphedema Therapy New precaution - to improve, our physical therapists will perform initial evaluation of pt's status u zahida admission and devise an individualized program for Patient precaution education Poor balance - to improve, our physical therapists will perform initial evaluation of pt's status upo n admission and devise an individualized program for Balance Training Weakness - to improve, our physical therapists will perform initial evaluation of pt's status upon ad mission and devise an individualized program for Aquatic Therapy, Neuromuscular Reeducation, and Stre ngthening Achieving independence - to improve, our physical therapists will perform initial evaluation of pt's status upon admission and devise an individualized program for Community Reintegration Activities - Occupational Therapy ADL deficits - to improve, our occupation therapists will perform initial evaluation of pt's status u zahida admission and devise an individualized program for Bathing, Bed mobility, Community Reintegration , Cooking, Dressing, Eating, Fine Motor Skills, Grooming, Homemaking, Kitchen Mobility, Laundry, Jeri ent Education, Safety Awareness, Splinting - Positioning, Transfers(Toilet, Tub, Shower), and Wheel C hair Management Cognitive deficits - to improve, our occupation therapists will perform initial evaluation of pt's st atus upon admission and devise an individualized program for Cognition - orientation Need for critical care unit nurse - to improve, our occupation therapists will perform initial evaluation of pt's s tatus upon admission and devise an individualized program for Caregiver Training Weakness - to improve, our occupation therapists will perform initial evaluation of pt's status upon admission and devise an individualized program for Aquatic Therapy, Balance, Endurance, UE ROM, and U E strengthening MEDICAL PLAN: - Diet Type Start Regular - Diet - Liquid Texture Start Regular - Tube Feed Start N/A - Bladder care per protocol - Weight Bearing Precaution WBAT both LE - Skin care per protocol - Other See attached MAR (Medication Administration Record) - Diet - Solid Texture Regular - Shower shower DISCHARGE PLAN: - Estimated Length of Stay (days) 17. - Consensus on plan Discharge plan has not been discussed with primary caregiver. Patient/Family is in agreement with the plan. Primary caregiver is in agreement with the plan. - Patient/Family Goals Return home with assistance. - Planned Living Setting Upon Discharge Home, to live with Other. SIGNATURE PANEL: (CDT)
--- NOTE | 2019-11-21 17:17 | PAPE ---
PATIENT: [facility] MR# [id number] REFERRING DOCTOR jacob Wolff EVALUATION DATE AND TIME 11/21/2019 17:16 (CDT) NAME JULIANN MERRITT DATE OF 1950 AGE 69 PHONE SSN# [id number] GENDER female EVALUATING PHYSICIAN Dr. Omar Barone M.D. ADMISSION DIAGNOSIS: ONSET DATE 11/13/2019 POST-ADMISSION FUNCTIONAL/MEDICAL STATUS: - Walking Same score based on distance walked: 1(<=50ft) STATUS CHANGE EVALUATION: No change in Functional or Medical Status is identified compared with Pre-Admission screening. PATIENT NEEDS CLOSE MEDICAL SUPERVISION BY A REHABILITATION PHYSICIAN FOR: Coordination of Treatment Team PATIENT REQUIRES 24X7 REHAB NURSING FOR MEDICAL AND FUNCTIONAL MGT. OF THE FOLLOWING DEFICITS: Disease Management Medication Management Patient/Family Education Providing Safe Environment PATIENT REQUIRES INTENSIVE, COORDINATED INTERDISCIPLINARY APPROACH TO REHAB: Arranging Home Equipment/Services Discharge Planning Family Intervention/Training Brick Handler/Case Management LIST OF IDENTIFIED AND POTENTIAL PROBLEMS: Alteration in leisure activities Infection, Actual or Potential Mobility Impaired Pain, Alteration in Comfort Self Care Deficit Skin Integrity, Actual or Potential Urinary Tract Infection (UTI), Actual or Potential PATIENT COULD BE AT RISK FOR COMPLICATIONS FROM ADVERSE MEDICAL CONDITIONS DUE TO HIS/HER COMORBIDITI ES AND THE RIGORS OF THE INTENSIVE REHABILLITATION PROGRAM. METHODS OR INTERVENTIONS TO AVOID COMPLIC ATIONS INCLUDE: - Bleeding Stroke patients assessed for lethargy or change in status. - Infection Clinical staff to assess and manage the signs and symptoms of infection including fever, redness, war mth, etc. - Urinary Tract Infection - Aspiration Clinical staff will assess and manage coughing, drooling, congestion. - Falls Patient will be evaluated for Fall Precautions and will be placed on Fall Precautions as indicated pe r protocol. - Skin Breakdown Nursing will assess skin daily using assessment tool and will place on Skin Breakdown Precautions as indicated per protocol. - Pain Clinical staff may employ non-medication methods such as massage, distraction, decrease stimulus, etc . as needed. Clinical staff will assess patient's pain level every shift per protocol to assess and e nsure pain management effectiveness. Medications will be given and the pain level re-assessed. PRELIMINARY PLAN OF CARE: - Physical Therapy Patient needs Physical Therapy for a daily minimum of 1.5 hours at least 5 out of 7 days, to improve: Mobility, Strengthening, Transfers, Stretching, ROM, Endurance, Ability to manage stairs, Gait, and Balance. - Speech Therapy Patient needs Speech Therapy for a daily minimum of 0.5 hours at least 5 out of 7 days, to improve: S wallowing, Cognition, Language Skills, and Compensatory Strategies. - Rehabilitation Nursing Patient requires 24x7 Rehabilitation Nursing for: Pain Issues, Identifying and preventing risk factor s, Monitoring and reporting current medical conditions, Assisting with ambulation and transfer, Blayne ting with all ADL-s, Teaching patients about disease process and medications, Family teaching, Provid ing safe environment, Bowel and Bladder Issues, Skin Integrity, and Medication Management. Patient needs Brick Handler and/or Case Management for: Discharge Planning, Arranging Home Equipmen t or Services, and Family Interventions. - Dietary and Nutrition Services Patient needs Dietary and Nutrition Services for: Adequate Nutrition, Nutritional Supplements, and Nu tritional Education. - Occupational Therapy Patient needs Occupational Therapy for a daily minimum of 1.5 hours at least 5 out of 7 days, to impr ove Activities of Daily Living, including: Eating, Grooming, Bathing, Dressing, Toileting, Toilet Tra nsfers, Community Reintegration, Higher functional activities, Adaptive Equipment, Splinting, Househo ld Tasks, and Other activities as determined. QI SCORES: - Self-Care A. Eating 05-Setup or clean-up assistance B. Oral hygiene 05-Setup or clean-up assistance C. Toileting hygiene 04-Supervision or touching assistance E. Shower/bathe self 03-Partial/moderate assistance F. Upper body dressing 05-Setup or clean-up assistance G. Lower body dressing 03-Partial/moderate assistance H. Putting on/taking off footwear 03-Partial/moderate assistance - Mobility A. Roll left and right 04-Supervision or touching assistance B. Sit to lying 03-Partial/moderate assistance C. Lying to sitting on side of bed 03-Partial/moderate assistance D. Sit to stand 03-Partial/moderate assistance E. Chair/[id number]-[id number] transfer 03-Partial/moderate assistance F. Toilet transfer 03-Partial/moderate assistance G. Car transfer 88-Not attempted due to medical condition or safety concerns I. Walk 10 feet 04-Supervision or touching assistance J. Walk 50 feet with two turns 04-Supervision or touching assistance K. Walk 150 feet 88-Not attempted due to medical condition or safety concerns L. Walking 10 feet on uneven surfaces 88-Not attempted due to medical condition or safety concerns M. 1 step (curb) 88-Not attempted due to medical condition or safety concerns N. 4 steps 88-Not attempted due to medical condition or safety concerns O. 12 steps 88-Not attempted due to medical condition or safety concerns P. Picking up object 88-Not attempted due to medical condition or safety concerns - Bladder and Bowel Bladder continence 0-Always continent Bowel continence 0-Always continent - Endurance Poor - Balance Poor - Safety Awareness Poor POTENTIAL FUNCTIONAL GOALS FOR PATIENT TO ACHIEVE BY DISCHARGE: - Safety Precaution Patient will remain free from falls or injury at time of discharge. - Bed Mobility Patient will perform bed mobility at 4-Nhi level of assistance. - Transfers Patient will complete transfers from bed to chair at 4-Nhi level of assistance. - Mobility Patient will ambulate 150 ft with 4-Nhi level of assistance with RW. PATIENT REHAB POTENTIAL Sanjay MERRITT is able and expected to receive 3 hours of individualized therapy daily on at least 5 of ev claudia 7 days Sanjay MERRITT's prognosis for significant practical improvement within a reasonable period of time appear s Good Expected level of measurable improvement will be of a practical value to Sanjay MERRITT's functional capac ity or adaptations to impairments Has a viable Discharge Plan Medically appropriate; condition is sufficiently stable to participate in intensive rehab program DISCHARGE PLAN: - Estimated Length of Stay (days) 17. - Consensus on plan Discharge plan has not been discussed with primary caregiver. Patient/Family is in agreement with the plan. Primary caregiver is in agreement with the plan. - Patient/Family Goals Return home with assistance. - Planned Living Setting Upon Discharge Home, to live with Other. CONCLUSION ON REHABILITATION NECESSITY: I have evaluated patient's pre-admission functional status and, comparing it to the patient's post-ad mission functional status now, I conclude that the pre-admission assessment was accurate. Patient's c ondition on admission supports the medical necessity of admission to IR[facility]. It is safe to proceed with patient's therapy program. SIGNATURE PANEL: (CDT)
[2019-11-21] MEDS ORDERED: POTASSIUM CL SA 10 MEQ TAB PO ONE (18:00)
[2019-11-21] MEDS: ATORVASTATIN 80 MG TAB PO SCH (21:06)
[2019-11-22 06:43] LABS: Potassium 3.2 mmol/L (3.5-5.1)
[2019-11-22] MEDS: CLOPIDOGREL 75 MG TABLET PO SCH (07:23)
[2019-11-22] MEDS: THIAMINE HCL 100 MG TABLET PO SCH (07:23)
[2019-11-22] MEDS: VITAMIN D 1000 UNIT TAB PO SCH (07:23)
[2019-11-22] MEDS: lisinopriL 5 MG TAB PO SCH (07:23)
[2019-11-22] MEDS: POTASSIUM CL SA 10 MEQ TAB PO SCH (07:23)
[2019-11-22] MEDS: ASPIRIN 81 MG CHEWABLE TABLET PO SCH (07:24)
[2019-11-22] MEDS: FLUOXETINE 20 MG CAP PO SCH (07:24)
[2019-11-22] MEDS: CYANOCOBALAMIN 1,000 MCG TAB PO SCH (07:24)
--- NOTE | 2019-11-22 09:53 | P.RH.PN ---
Estimated Length of Stay: 14 Expected Discharge Date: 11/29/19 Discharge Disposition Plan: Home Vital Signs: Last Vital Signs Temp 98.0 F 11/22/19 07:11 Pulse 66 11/22/19 07:23 Resp 16 11/22/19 07:11 BP 141/63 H 11/22/19 07:23 Pulse Ox 97 11/22/19 07:11 Laboratory: Laboratory Last Values WBC 10.8 K/uL (4.3-10.9) 11/21/19 15:30 RBC 4.17 M/uL (3.86-4.86) 11/21/19 15:30 Hgb 12.7 g/dL (12.0-15.0) 11/21/19 15:30 Hct 36.8 % (36.0-45.0) 11/21/19 15:30 MCV 88.4 fL (80-100) 11/21/19 15:30 MCH 30.4 pg (27.0-35.0) 11/21/19 15:30 MCHC 34.4 g/dL (32.0-36.0) 11/21/19 15:30 RDW 14.8 % (12.1-15.2) 11/21/19 15:30 Plt Count 210 K/uL (152-406) 11/21/19 15:30 MPV 9.7 fL (7.6-11.3) 11/21/19 15:30 Neutrophils % 80.3 % (41.7-73.7) H 11/21/19 15:30 Lymphocytes % 13.5 % (15.3-44.8) L 11/21/19 15:30 Monocytes % 5.4 % (3.3-12.3) 11/21/19 15:30 Eosinophils % 0.4 % (0-4.4) 11/21/19 15:30 Basophils % 0.4 % (0-1.3) 11/21/19 15:30 Absolute Neutrophils 8.7 K/uL (1.8-8.0) H 11/21/19 15:30 Absolute Lymphocytes 1.5 K/uL (0.7-4.9) 11/21/19 15:30 Absolute Monocytes 0.6 K/uL (0.1-1.3) 11/21/19 15:30 Absolute Eosinophils 0.0 K/uL (0-0.5) 11/21/19 15:30 Absolute Basophils 0.0 K/uL (0-0.5) 11/21/19 15:30 Sodium 144 mmol/L (136-145) 11/22/19 05:43 Potassium 3.2 mmol/L (3.5-5.1) L 11/22/19 05:43 Chloride 109 mmol/L (98-107) H 11/22/19 05:43 Carbon Dioxide 28 mmol/L (21-32) 11/22/19 05:43 BUN 21 mg/dL (7-18) H 11/22/19 05:43 Creatinine 0.66 mg/dL (0.55-1.3) 11/22/19 05:43 Estimated GFR 89 mL/min (=/>90) L 11/22/19 05:43 Glucose 120 mg/dL (74-106) H 11/22/19 05:43 Calcium 8.6 mg/dL (8.5-10.1) 11/22/19 05:43 Magnesium 2.1 mg/dL (1.8-2.4) 11/21/19 15:30 Albumin 3.1 g/dL (3.4-5.0) L 11/21/19 15:30 Prealbumin 17.3 mg/dL (20-40) L 11/21/19 15:30 Urine Color Dk yellow 11/20/19 20:00 Urine Appearance Turbid 11/20/19 20:00 Urine pH 5.5 (5.0-7.0) 11/20/19 20:00 Ur Specific Cobb >=1.030 (1.005-1.030) 11/20/19 20:00 Glucose (UA)(Auto) Negative (NEG) 11/20/19 20:00 Urine Ketones 1+ (NEG) H 11/20/19 20:00 Urine Blood Negative (NEG) 11/20/19 20:00 Urine Nitrite Negative (NEG) 11/20/19 20:00 Urine Bilirubin Negative (NEG) 11/20/19 20:00 Urine Urobilinogen 0.2 mg/dL (0.2-1.0) 11/20/19 20:00 Ur Leukocyte Esterase Negative (NEG) 11/20/19 20:00 Urine RBC None seen /HPF (NONE SEEN) 11/20/19 20:00 Urine WBC <5 /HPF (<5) 11/20/19 20:00 Ur Squamous Epith Cells <5 /HPF (NONE SEEN) 11/20/19 20:00 Ur Urothelial Cells <5 /HPF (NONE SEEN) 11/20/19 20:00 Amorphous Sediment 4+ /HPF (NONE SEEN) H 11/20/19 20:00 Urine Bacteria <20 /HPF (<20) 11/20/19 20:00 Urine Culture Reflexed Not needed 11/20/19 20:00 Urine Total Protein Negative (NEG) 11/20/19 20:00 Weight: 131 lb Closed Surgical Incision Present: Yes Physician Update: She scored 16/20 on the MOCA. She has moderate aphasia. Labs reviewed and are stable. She is making fair overall progress with therpy. Functional Improvement: pt presents with mild strength deficits on the R side. pt demonstrates impaired balance and stability during ambulation and functional transfers. pt exhibits reduced trunk strength. pt experiences reduced tolerance to functional activity due to weakness and fatigue. Skilled PT services are necessary to address the above mentioned impairments and functional limitations. Speech Therapy Update: Patient obtained a 16/30 on the MoCA indicating mod- severe cognitive-linguistic impairments particularly in visuospatial skills and executive functioning, attention, language, and abstract concepts. Summary: Patient's care plan and mcc goals have been reviewed and revised as necessary. Please see the Rehabilitation Signature page for all necessary signatures.
--- NOTE | 2019-11-22 11:11 | FAST ---
ENCOUNTER DATE AND TIME: 11/21/2019 08:00 (CDT) NAME JULIANN MERRITT DATE OF : 1950 DATE OF ADMISSION: 11/20/2019 19:16 (CDT) PHONE: AGE: 69 N# [id number] GENDER: Female ENCOUNTER PHYSICIAN: Dr. Omar Barone M.D. ADMISSION DIAGNOSIS: - Stroke 01 - Right Body (Left Brain) (01.2) EATING: Not assessed/no information CODE: - ORAL HYGIENE: ORAL HYGIENE - STEP 1: Does the patient complete the activity by him/herself with no assistance (physical, verbal/nonverbal cueing, setup/clean-up)? No. ORAL HYGIENE - STEP 2: Does the patient need only setup/clean-up assistance from one helper? No. ORAL HYGIENE - STEP 3: Does the patient need only verbal/nonverbal cueing or touching/steadying/contact guard assistance fro m one helper? Yes. 1. [id number] ADMISSION PERFORMANCE: Supervision or touching assistance CODE: 04 TOILETING HYGIENE: TOILETING HYGIENE - STEP 1: Does the patient complete the activity by him/herself with no assistance (physical, verbal/nonverbal cueing, setup/clean-up)? No. TOILETING HYGIENE - STEP 2: Does the patient need only setup/clean-up assistance from one helper? No. TOILETING HYGIENE - STEP 3: Does the patient need only verbal/nonverbal cueing or touching/steadying/contact guard assistance fro m one helper? Yes. 1. [id number] ADMISSION PERFORMANCE: Supervision or touching assistance CODE: 04 BATHING: SHOWER/BATHE SELF - STEP 1: Does the patient complete the activity by him/herself with no assistance (physical, verbal/nonverbal cueing, setup/clean-up)? No. SHOWER/BATHE SELF - STEP 2: Does the patient need only setup/clean-up assistance from one helper? No. SHOWER/BATHE SELF - STEP 3: Does the patient need only verbal/nonverbal cueing or touching/steadying/contact guard assistance fro m one helper? Yes. 1. [id number] ADMISSION PERFORMANCE: Supervision or touching assistance CODE: 04 DRESSING - UPPER BODY: DRESSING - UPPER BODY - STEP 1: Does the patient complete the activity by him/herself with no assistance (physical, verbal/nonverbal cueing, setup/clean-up)? No. DRESSING - UPPER BODY - STEP 2: Does the patient need only setup/clean-up assistance from one helper? Yes. 1. [id number] ADMISSION PERFORMANCE: Setup or clean-up assistance CODE: 05 DRESSING - LOWER BODY: DRESSING - LOWER BODY - STEP 1: Does the patient complete the activity by him/herself with no assistance (physical, verbal/nonverbal cueing, setup/clean-up)? No. DRESSING - LOWER BODY - STEP 2: Does the patient need only setup/clean-up assistance from one helper? No. DRESSING - LOWER BODY - STEP 3: Does the patient need only verbal/nonverbal cueing or touching/steadying/contact guard assistance fro m one helper? Yes. 1. [id number] ADMISSION PERFORMANCE: Supervision or touching assistance CODE: 04 PUTTING ON/TAKING OFF FOOTWEAR: FOOTWEAR - STEP 1: Does the patient complete the activity by him/herself with no assistance (physical, verbal/nonverbal cueing, setup/clean-up)? No. FOOTWEAR - STEP 2: Does the patient need only setup/clean-up assistance from one helper? No. FOOTWEAR - STEP 3: Does the patient need only verbal/nonverbal cueing or touching/steadying/contact guard assistance fro m one helper? No. FOOTWEAR - STEP 4: Does the patient need physical assistance - for example lifting or trunk support from one helper - wi th the helper providing less than half of the effort? Yes. 1. [id number] ADMISSION PERFORMANCE: Partial/moderate assistance CODE: 03 DOES THE PATIENT USE A WHEELCHAIR/SCOOTER? CODE: EXPR INDICATE THE TYPE OF WHEELCHAIR/SCOOTER USED: CODE: EXPR INDICATE THE TYPE OF WHEELCHAIR/SCOOTER USED: CODE: EXPR BLADDER AND BOWEL: CODE: EXPR CODE: EXPR SIGNATURE PANEL: The following modified sections: 1. [id number] Admission Performance, 1. [id number] Admission Performance, 1. [id number] Admission Performance, 1. [id number] Admission Performance, 1. GV6171b Admission Performance, 1. [id number] Admission Performance, 1. [id number] Admission Performance were [electronically] signed by Mina Reyes OT on MonNov 22 2019 11:10:32 GMT-0500 (Central Daylight Time)
--- NOTE | 2019-11-22 11:49 | FAST ---
SHIFT START DATE/TIME: 11/22/2019 07:00 (CDT) SHIFT END DATE/TIME: 11/22/2019 19:00 (CDT) NAME JULIANN MERRITT DATE OF : 1950 DATE OF ADMISSION: 11/20/2019 19:16 (CDT) PHONE: AGE: 69 N# [id number] GENDER: Female ENCOUNTER PHYSICIAN: Dr. Omar Barone M.D. ADMISSION DIAGNOSIS: - Stroke 01 - Right Body (Left Brain) (01.2) EATING: EATING - STEP 1: Does the patient complete the activity by him/herself with no assistance (physical, verbal/nonverbal cueing, setup/clean-up)? No. EATING - STEP 2: Does the patient need only setup/clean-up assistance from one helper? No. EATING - STEP 3: Does the patient need only verbal/nonverbal cueing or touching/steadying/contact guard assistance fro m one helper? Yes. 1. [id number] ADMISSION PERFORMANCE: Supervision or touching assistance CODE: 04 ORAL HYGIENE: ORAL HYGIENE - STEP 1: Does the patient complete the activity by him/herself with no assistance (physical, verbal/nonverbal cueing, setup/clean-up)? No. ORAL HYGIENE - STEP 2: Does the patient need only setup/clean-up assistance from one helper? No. ORAL HYGIENE - STEP 3: Does the patient need only verbal/nonverbal cueing or touching/steadying/contact guard assistance fro m one helper? Yes. 1. [id number] ADMISSION PERFORMANCE: Supervision or touching assistance CODE: 04 TOILETING HYGIENE: TOILETING HYGIENE - STEP 1: Does the patient complete the activity by him/herself with no assistance (physical, verbal/nonverbal cueing, setup/clean-up)? No. TOILETING HYGIENE - STEP 2: Does the patient need only setup/clean-up assistance from one helper? No. TOILETING HYGIENE - STEP 3: Does the patient need only verbal/nonverbal cueing or touching/steadying/contact guard assistance fro m one helper? Yes. 1. [id number] ADMISSION PERFORMANCE: Supervision or touching assistance CODE: 04 BATHING: Not assessed/no information CODE: - DRESSING - UPPER BODY: Not assessed/no information CODE: - DRESSING - LOWER BODY: Not assessed/no information CODE: - PUTTING ON/TAKING OFF FOOTWEAR: Not assessed/no information CODE: - ROLL LEFT AND RIGHT: Not assessed/no information CODE: - SIT TO LYING: Not assessed/no information CODE: - LYING TO SITTING: Not assessed/no information CODE: - SIT TO STAND: SIT TO STAND - STEP 1: Does the patient complete the activity by him/herself with no assistance (physical, verbal/nonverbal cueing, setup/clean-up)? No. SIT TO STAND - STEP 2: Does the patient need only setup/clean-up assistance from one helper? No. SIT TO STAND - STEP 3: Does the patient need only verbal/nonverbal cueing or touching/steadying/contact guard assistance fro m one helper? Yes. 1. [id number] ADMISSION PERFORMANCE: Supervision or touching assistance CODE: 04 TRANSFERS: BED, CHAIR: CHAIR/[id number] TRANSFER - STEP 1: Does the patient complete the activity by him/herself with no assistance (physical, verbal/nonverbal cueing, setup/clean-up)? No. CHAIR/[id number] TRANSFER - STEP 2: Does the patient need only setup/clean-up assistance from one helper? No. CHAIR/[id number] TRANSFER - STEP 3: Does the patient need only verbal/nonverbal cueing or touching/steadying/contact guard assistance fro m one helper? Yes. 1. [id number] ADMISSION PERFORMANCE: Supervision or touching assistance CODE: 04 TRANSFER TOILET: TOILET TRANSFER - STEP 1: Does the patient complete the activity by him/herself with no assistance (physical, verbal/nonverbal cueing, setup/clean-up)? No. TOILET TRANSFER - STEP 2: Does the patient need only setup/clean-up assistance from one helper? No. TOILET TRANSFER - STEP 3: Does the patient need only verbal/nonverbal cueing or touching/steadying/contact guard assistance fro m one helper? Yes. 1. [id number] ADMISSION PERFORMANCE: Supervision or touching assistance CODE: 04 TRANSFERS: CAR: Not assessed/no information CODE: - WALK 10 FEET: Not assessed/no information CODE: - 1 STEP (CURB): Not assessed/no information CODE: - PICKING UP OBJECT: Not assessed/no information CODE: - DOES THE PATIENT USE A WHEELCHAIR/SCOOTER? CODE: EXPR WHEEL 50 FEET WITH TWO TURNS: Not assessed/no information CODE: - INDICATE THE TYPE OF WHEELCHAIR/SCOOTER USED: CODE: EXPR WHEEL 150 FEET: Not assessed/no information CODE: - INDICATE THE TYPE OF WHEELCHAIR/SCOOTER USED: CODE: EXPR BLADDER AND BOWEL: H350. BLADDER CONTINENCE (3-DAY ASSESSMENT PERIOD): Always continent (no documented incontinence) CODE: 0 H400. BOWEL CONTINENCE (3-DAY ASSESSMENT PERIOD): Always continent CODE: 0 SIGNATURE PANEL: The following modified sections: 1. [id number] Admission Performance, 1. [id number] Admission Performance, 1. [id number] Admission Performance, 1. [id number] Admission Performance, 1. [id number] Admission Performance, 1. [id number] Admission Performance, 1. [id number] Admission Performance, Code, H350. Bladder Continence ( 3-day assessment period), H400. Bowel Continence (3-day assessment period) were [electronically] sign ed by Jamie Clemens on MonNov 22 2019 11:47:53 GMT-0500 (Central Daylight Time)
[2019-11-22] MEDS: ENOXAPARIN 30 MG/0.3 ML SQ SCH (16:41)
[2019-11-22] MEDS: MELATONIN 3 MG TABLET PO PRN (20:43)
[2019-11-22] MEDS: ATORVASTATIN 80 MG TAB PO SCH (20:43)
--- NOTE | 2019-11-23 02:22 | FAST ---
SHIFT START DATE/TIME: 11/22/2019 19:00 (CDT) SHIFT END DATE/TIME: 11/23/2019 07:00 (CDT) NAME JULIANN MERRITT DATE OF : 1950 DATE OF ADMISSION: 11/20/2019 19:16 (CDT) PHONE: AGE: 69 N# [id number] GENDER: Female ENCOUNTER PHYSICIAN: Dr. Omar Barone M.D. ADMISSION DIAGNOSIS: - Stroke 01 - Right Body (Left Brain) (01.2) EATING: Not assessed/no information CODE: - ORAL HYGIENE: Not assessed/no information CODE: - TOILETING HYGIENE: TOILETING HYGIENE - STEP 1: Does the patient complete the activity by him/herself with no assistance (physical, verbal/nonverbal cueing, setup/clean-up)? No. TOILETING HYGIENE - STEP 2: Does the patient need only setup/clean-up assistance from one helper? No. TOILETING HYGIENE - STEP 3: Does the patient need only verbal/nonverbal cueing or touching/steadying/contact guard assistance fro m one helper? Yes. 1. [id number] ADMISSION PERFORMANCE: Supervision or touching assistance CODE: 04 BATHING: Not assessed/no information CODE: - DRESSING - UPPER BODY: Not assessed/no information CODE: - DRESSING - LOWER BODY: Not assessed/no information CODE: - PUTTING ON/TAKING OFF FOOTWEAR: Not assessed/no information CODE: - ROLL LEFT AND RIGHT: Not assessed/no information CODE: - SIT TO LYING: SIT TO LYING - STEP 1: Does the patient complete the activity by him/herself with no assistance (physical, verbal/nonverbal cueing, setup/clean-up)? No. SIT TO LYING - STEP 2: Does the patient need only setup/clean-up assistance from one helper? No. SIT TO LYING - STEP 3: Does the patient need only verbal/nonverbal cueing or touching/steadying/contact guard assistance fro m one helper? Yes. 1. [id number] ADMISSION PERFORMANCE: Supervision or touching assistance CODE: 04 LYING TO SITTING: LYING TO SITTING ON SIDE OF BED - STEP 1: Does the patient complete the activity by him/herself with no assistance (physical, verbal/nonverbal cueing, setup/clean-up)? No. LYING TO SITTING ON SIDE OF BED - STEP 2: Does the patient need only setup/clean-up assistance from one helper? No. LYING TO SITTING ON SIDE OF BED - STEP 3: Does the patient need only verbal/nonverbal cueing or touching/steadying/contact guard assistance fro m one helper? Yes. 1. [id number] ADMISSION PERFORMANCE: Supervision or touching assistance CODE: 04 SIT TO STAND: SIT TO STAND - STEP 1: Does the patient complete the activity by him/herself with no assistance (physical, verbal/nonverbal cueing, setup/clean-up)? No. SIT TO STAND - STEP 2: Does the patient need only setup/clean-up assistance from one helper? No. SIT TO STAND - STEP 3: Does the patient need only verbal/nonverbal cueing or touching/steadying/contact guard assistance fro m one helper? Yes. 1. [id number] ADMISSION PERFORMANCE: Supervision or touching assistance CODE: 04 TRANSFERS: BED, CHAIR: Not assessed/no information CODE: - TRANSFER TOILET: TOILET TRANSFER - STEP 1: Does the patient complete the activity by him/herself with no assistance (physical, verbal/nonverbal cueing, setup/clean-up)? No. TOILET TRANSFER - STEP 2: Does the patient need only setup/clean-up assistance from one helper? No. TOILET TRANSFER - STEP 3: Does the patient need only verbal/nonverbal cueing or touching/steadying/contact guard assistance fro m one helper? Yes. 1. [id number] ADMISSION PERFORMANCE: Supervision or touching assistance CODE: 04 TRANSFERS: CAR: Not assessed/no information CODE: - WALK 10 FEET: Not assessed/no information CODE: - 1 STEP (CURB): Not assessed/no information CODE: - PICKING UP OBJECT: Not assessed/no information CODE: - DOES THE PATIENT USE A WHEELCHAIR/SCOOTER? CODE: EXPR WHEEL 50 FEET WITH TWO TURNS: Not assessed/no information CODE: - INDICATE THE TYPE OF WHEELCHAIR/SCOOTER USED: CODE: EXPR WHEEL 150 FEET: Not assessed/no information CODE: - INDICATE THE TYPE OF WHEELCHAIR/SCOOTER USED: CODE: EXPR BLADDER AND BOWEL: H350. BLADDER CONTINENCE (3-DAY ASSESSMENT PERIOD): Always continent (no documented incontinence) CODE: 0 H400. BOWEL CONTINENCE (3-DAY ASSESSMENT PERIOD): Always continent CODE: 0
[2019-11-23] MEDS: POTASSIUM CL SA 10 MEQ TAB PO SCH (08:17)
[2019-11-23] MEDS: FLUOXETINE 20 MG CAP PO SCH (08:18)
[2019-11-23] MEDS: VITAMIN D 1000 UNIT TAB PO SCH (08:18)
[2019-11-23] MEDS: lisinopriL 5 MG TAB PO SCH (08:18)
[2019-11-23] MEDS: THIAMINE HCL 100 MG TABLET PO SCH (08:18)
[2019-11-23] MEDS: CLOPIDOGREL 75 MG TABLET PO SCH (08:18)
[2019-11-23] MEDS: ASPIRIN 81 MG CHEWABLE TABLET PO SCH (08:18)
[2019-11-23] MEDS: CYANOCOBALAMIN 1,000 MCG TAB PO SCH (08:19)
--- NOTE | 2019-11-23 08:35 | FAST ---
ENCOUNTER DATE AND TIME: 11/23/2019 08:00 (CDT) NAME JULIANN MERRITT DATE OF : 1950 DATE OF ADMISSION: 11/20/2019 19:16 (CDT) PHONE: AGE: 69 N# [id number] GENDER: Female ENCOUNTER PHYSICIAN: Dr. Omar Barone M.D. ADMISSION DIAGNOSIS: - Stroke 01 - Right Body (Left Brain) (01.2) EATING: Not assessed/no information CODE: - ORAL HYGIENE: ORAL HYGIENE - STEP 1: Does the patient complete the activity by him/herself with no assistance (physical, verbal/nonverbal cueing, setup/clean-up)? No. ORAL HYGIENE - STEP 2: Does the patient need only setup/clean-up assistance from one helper? No. ORAL HYGIENE - STEP 3: Does the patient need only verbal/nonverbal cueing or touching/steadying/contact guard assistance fro m one helper? Yes. 1. [id number] ADMISSION PERFORMANCE: Supervision or touching assistance CODE: 04 TOILETING HYGIENE: TOILETING HYGIENE - STEP 1: Does the patient complete the activity by him/herself with no assistance (physical, verbal/nonverbal cueing, setup/clean-up)? No. TOILETING HYGIENE - STEP 2: Does the patient need only setup/clean-up assistance from one helper? No. TOILETING HYGIENE - STEP 3: Does the patient need only verbal/nonverbal cueing or touching/steadying/contact guard assistance fro m one helper? Yes. 1. [id number] ADMISSION PERFORMANCE: Supervision or touching assistance CODE: 04 BATHING: SHOWER/BATHE SELF - STEP 1: Does the patient complete the activity by him/herself with no assistance (physical, verbal/nonverbal cueing, setup/clean-up)? No. SHOWER/BATHE SELF - STEP 2: Does the patient need only setup/clean-up assistance from one helper? No. SHOWER/BATHE SELF - STEP 3: Does the patient need only verbal/nonverbal cueing or touching/steadying/contact guard assistance fro m one helper? Yes. 1. [id number] ADMISSION PERFORMANCE: Supervision or touching assistance CODE: 04 DRESSING - UPPER BODY: DRESSING - UPPER BODY - STEP 1: Does the patient complete the activity by him/herself with no assistance (physical, verbal/nonverbal cueing, setup/clean-up)? No. DRESSING - UPPER BODY - STEP 2: Does the patient need only setup/clean-up assistance from one helper? No. DRESSING - UPPER BODY - STEP 3: Does the patient need only verbal/nonverbal cueing or touching/steadying/contact guard assistance fro m one helper? Yes. 1. [id number] ADMISSION PERFORMANCE: Supervision or touching assistance CODE: 04 DRESSING - LOWER BODY: DRESSING - LOWER BODY - STEP 1: Does the patient complete the activity by him/herself with no assistance (physical, verbal/nonverbal cueing, setup/clean-up)? No. DRESSING - LOWER BODY - STEP 2: Does the patient need only setup/clean-up assistance from one helper? No. DRESSING - LOWER BODY - STEP 3: Does the patient need only verbal/nonverbal cueing or touching/steadying/contact guard assistance fro m one helper? Yes. 1. [id number] ADMISSION PERFORMANCE: Supervision or touching assistance CODE: 04 PUTTING ON/TAKING OFF FOOTWEAR: FOOTWEAR - STEP 1: Does the patient complete the activity by him/herself with no assistance (physical, verbal/nonverbal cueing, setup/clean-up)? No. FOOTWEAR - STEP 2: Does the patient need only setup/clean-up assistance from one helper? No. FOOTWEAR - STEP 3: Does the patient need only verbal/nonverbal cueing or touching/steadying/contact guard assistance fro m one helper? Yes. 1. [id number] ADMISSION PERFORMANCE: Supervision or touching assistance CODE: 04 DOES THE PATIENT USE A WHEELCHAIR/SCOOTER? CODE: EXPR INDICATE THE TYPE OF WHEELCHAIR/SCOOTER USED: CODE: EXPR INDICATE THE TYPE OF WHEELCHAIR/SCOOTER USED: CODE: EXPR BLADDER AND BOWEL: CODE: EXPR CODE: EXPR SIGNATURE PANEL: The following modified sections: 1. [id number] Admission Performance, 1. [id number] Admission Performance, 1. [id number] Admission Performance, 1. [id number] Admission Performance, 1. [id number] Admission Performance, 1. EN4043n Admission Performance were [electronically] signed by ZOE Neumann on MonNov 23 2019 08:34:55 GMT-0500 (Central Daylight Time)
[2019-11-23] MEDS: ENOXAPARIN 30 MG/0.3 ML SQ SCH (16:27)
[2019-11-23] MEDS: MEGESTROL 40 MG TAB PO SCH (20:36)
[2019-11-23] MEDS: ATORVASTATIN 80 MG TAB PO SCH (20:36)
[2019-11-23] MEDS: MELATONIN 3 MG TABLET PO PRN (23:32)
[2019-11-24] MEDS: THIAMINE HCL 100 MG TABLET PO SCH (07:55)
[2019-11-24] MEDS: lisinopriL 5 MG TAB PO SCH (07:55)
[2019-11-24] MEDS: POTASSIUM CL SA 10 MEQ TAB PO SCH (07:56)
[2019-11-24] MEDS: FLUOXETINE 20 MG CAP PO SCH (07:56)
[2019-11-24] MEDS: VITAMIN D 1000 UNIT TAB PO SCH (07:56)
[2019-11-24] MEDS: MEGESTROL 40 MG TAB PO SCH ×2 (07:56→20:43)
[2019-11-24] MEDS: ASPIRIN 81 MG CHEWABLE TABLET PO SCH (07:56)
[2019-11-24] MEDS: CYANOCOBALAMIN 1,000 MCG TAB PO SCH (07:56)
[2019-11-24] MEDS: CLOPIDOGREL 75 MG TABLET PO SCH (07:56)
[2019-11-24] MEDS: ENOXAPARIN 30 MG/0.3 ML SQ SCH (16:42)
[2019-11-24] MEDS: MELATONIN 3 MG TABLET PO PRN (20:43)
[2019-11-24] MEDS: ATORVASTATIN 80 MG TAB PO SCH (20:43)
[2019-11-25] MEDS: THIAMINE HCL 100 MG TABLET PO SCH (07:42)
[2019-11-25] MEDS: CLOPIDOGREL 75 MG TABLET PO SCH (07:42)
[2019-11-25] MEDS: POTASSIUM CL SA 10 MEQ TAB PO SCH (07:42)
[2019-11-25] MEDS: lisinopriL 5 MG TAB PO SCH (07:42)
[2019-11-25] MEDS: FLUOXETINE 20 MG CAP PO SCH (07:42)
[2019-11-25] MEDS: ASPIRIN 81 MG CHEWABLE TABLET PO SCH (07:43)
[2019-11-25] MEDS: CYANOCOBALAMIN 1,000 MCG TAB PO SCH (07:43)
[2019-11-25] MEDS: MEGESTROL 40 MG TAB PO SCH ×2 (07:43→20:27)
[2019-11-25] MEDS: VITAMIN D 1000 UNIT TAB PO SCH (07:44)
--- NOTE | 2019-11-25 14:51 | FAST ---
ENCOUNTER DATE AND TIME: 11/25/2019 08:00 (CDT) NAME JULIANN MERRITT DATE OF : 1950 DATE OF ADMISSION: 11/20/2019 19:16 (CDT) PHONE: AGE: 69 N# [id number] GENDER: Female ENCOUNTER PHYSICIAN: Dr. Omar Barone M.D. ADMISSION DIAGNOSIS: - Stroke 01 - Right Body (Left Brain) (01.2) EATING: Not assessed/no information CODE: - ORAL HYGIENE: ORAL HYGIENE - STEP 1: Does the patient complete the activity by him/herself with no assistance (physical, verbal/nonverbal cueing, setup/clean-up)? No. ORAL HYGIENE - STEP 2: Does the patient need only setup/clean-up assistance from one helper? No. ORAL HYGIENE - STEP 3: Does the patient need only verbal/nonverbal cueing or touching/steadying/contact guard assistance fro m one helper? Yes. 1. [id number] ADMISSION PERFORMANCE: Supervision or touching assistance CODE: 04 TOILETING HYGIENE: TOILETING HYGIENE - STEP 1: Does the patient complete the activity by him/herself with no assistance (physical, verbal/nonverbal cueing, setup/clean-up)? No. TOILETING HYGIENE - STEP 2: Does the patient need only setup/clean-up assistance from one helper? No. TOILETING HYGIENE - STEP 3: Does the patient need only verbal/nonverbal cueing or touching/steadying/contact guard assistance fro m one helper? Yes. 1. [id number] ADMISSION PERFORMANCE: Supervision or touching assistance CODE: 04 BATHING: SHOWER/BATHE SELF - STEP 1: Does the patient complete the activity by him/herself with no assistance (physical, verbal/nonverbal cueing, setup/clean-up)? No. SHOWER/BATHE SELF - STEP 2: Does the patient need only setup/clean-up assistance from one helper? No. SHOWER/BATHE SELF - STEP 3: Does the patient need only verbal/nonverbal cueing or touching/steadying/contact guard assistance fro m one helper? Yes. 1. [id number] ADMISSION PERFORMANCE: Supervision or touching assistance CODE: 04 DRESSING - UPPER BODY: DRESSING - UPPER BODY - STEP 1: Does the patient complete the activity by him/herself with no assistance (physical, verbal/nonverbal cueing, setup/clean-up)? No. DRESSING - UPPER BODY - STEP 2: Does the patient need only setup/clean-up assistance from one helper? No. DRESSING - UPPER BODY - STEP 3: Does the patient need only verbal/nonverbal cueing or touching/steadying/contact guard assistance fro m one helper? Yes. 1. [id number] ADMISSION PERFORMANCE: Supervision or touching assistance CODE: 04 DRESSING - LOWER BODY: DRESSING - LOWER BODY - STEP 1: Does the patient complete the activity by him/herself with no assistance (physical, verbal/nonverbal cueing, setup/clean-up)? No. DRESSING - LOWER BODY - STEP 2: Does the patient need only setup/clean-up assistance from one helper? No. DRESSING - LOWER BODY - STEP 3: Does the patient need only verbal/nonverbal cueing or touching/steadying/contact guard assistance fro m one helper? Yes. 1. [id number] ADMISSION PERFORMANCE: Supervision or touching assistance CODE: 04 PUTTING ON/TAKING OFF FOOTWEAR: FOOTWEAR - STEP 1: Does the patient complete the activity by him/herself with no assistance (physical, verbal/nonverbal cueing, setup/clean-up)? No. FOOTWEAR - STEP 2: Does the patient need only setup/clean-up assistance from one helper? No. FOOTWEAR - STEP 3: Does the patient need only verbal/nonverbal cueing or touching/steadying/contact guard assistance fro m one helper? Yes. 1. [id number] ADMISSION PERFORMANCE: Supervision or touching assistance CODE: 04 DOES THE PATIENT USE A WHEELCHAIR/SCOOTER? CODE: EXPR INDICATE THE TYPE OF WHEELCHAIR/SCOOTER USED: CODE: EXPR INDICATE THE TYPE OF WHEELCHAIR/SCOOTER USED: CODE: EXPR BLADDER AND BOWEL: CODE: EXPR CODE: EXPR SIGNATURE PANEL: The following modified sections: 1. [id number] Admission Performance, 1. [id number] Admission Performance, 1. [id number] Admission Performance, 1. [id number] Admission Performance, 1. [id number] Admission Performance, 1. [id number] Admission Performance were [electronically] signed by ZOE Neumann on MonNov 25 2019 14:50:20 GMT-0500 (Central Daylight Time)
[2019-11-25] MEDS: ENOXAPARIN 30 MG/0.3 ML SQ SCH (16:39)
[2019-11-25] MEDS: ATORVASTATIN 80 MG TAB PO SCH (20:27)
[2019-11-25] MEDS: MELATONIN 3 MG TABLET PO PRN (20:27)
[2019-11-25] MEDS: DOCUSATE NA/SENNA CONC 1 TAB PO PRN (20:27)
[2019-11-26] MEDS: THIAMINE HCL 100 MG TABLET PO SCH (08:34)
[2019-11-26] MEDS: FLUOXETINE 20 MG CAP PO SCH (08:34)
[2019-11-26] MEDS: CLOPIDOGREL 75 MG TABLET PO SCH (08:34)
[2019-11-26] MEDS: VITAMIN D 1000 UNIT TAB PO SCH (08:34)
[2019-11-26] MEDS: CYANOCOBALAMIN 1,000 MCG TAB PO SCH (08:35)
[2019-11-26] MEDS: POTASSIUM CL SA 10 MEQ TAB PO SCH (08:35)
[2019-11-26] MEDS: MEGESTROL 40 MG TAB PO SCH ×2 (08:35→20:25)
[2019-11-26] MEDS: ASPIRIN 81 MG CHEWABLE TABLET PO SCH (08:35)
[2019-11-26] MEDS: lisinopriL 5 MG TAB PO SCH (08:35)
[2019-11-26] MEDS: ENOXAPARIN 30 MG/0.3 ML SQ SCH (16:24)
--- NOTE | 2019-11-26 18:29 | R.PN ---
ENCOUNTER DATE AND TIME: 11/26/2019 18:26 (CDT) NAME JULIANN MERRITT DATE OF : 1950 DATE OF ADMISSION: 11/20/2019 19:16 (CDT) Stroke with aphasia and incoordination. SUBJECTIVE: Pt denied any Shortness of Breath. Pt denied any depression. WBC 10.8, Hgb 12.7, Na 144, K 3.2, prealbumin 17.3. Ambulated 1000' with standby assistance using a rolling walker. Up and down 15 steps with standby ass istance using bilateral handrails. VITAL SIGNS Temperature: 98.3. F SBP/DBP: 154/70 Pulse: 67 Resp: 16 MEDICATION ALLERGIES: CODEINE ENVIRONMENTAL ALLERGIES: None Known - Substance Allergies None Known - Other Allergies None Known NURSING: - Shower allowing shower - Bladder care per protocol - Skin care per protocol PRECAUTIONS: - Weight Bearing Precaution WBAT both LE ACTIVITIES OOB only with supervision THERAPIES: - Occupational Therapy Cognitive Retraining. Visual Perceptual Training. - Dietary and Nutrition Adequate Nutrition. Nutritional Education. Nutritional Supplements. - Speech Therapy Cognitive Training. Expressive Language Skills. Memory Strategies. Receptive Language Skills. Speech Intelligibility Training. PHYSICAL EXAM - Gen Alert and awake Lying in bed No apparent distress Oriented to: person, time, and place - Skin No skin breakdown. Normacephalic - Eyes No abnormalities - ENMT No abnormalities - Neck No abnormalities - CVS RRR - Chest No abnormalities - Resp Clear to auscultation - Abd Soft - GI Non distended Deferred - No abnormalities - Ext No significant edema - MSK 4+/5 weakness in left upper and lower extremity - Neuro 4/5 strength right upper and lower extremities. - Psych No abnormalities ASSESSMENT: Patient has realistic goal of being discharged at assistance level 6-Елена to reside at Home with [facility] er. MDM/PLAN: - Physical Therapy Gait dysfunction - to improve, our physical therapists will perform initial evaluation of pt's statu s upon admission and devise an individualized program for Gait Training, and Wheel Chair mobility Inability to transfer - to improve, our physical therapists will perform initial evaluation of pt's status upon admission and devise an individualized program for Bed mobility Need for home safety evaluation - to improve, our physical therapists will perform initial evaluatio n of pt's status upon admission and devise an individualized program for Home Evaluation Need in caregiver upon discharge - to improve, our physical therapists will perform initial evaluati on of pt's status upon admission and devise an individualized program for Caregiver Training Edema - to improve, our physical therapists will perform initial evaluation of pt's status upon admi ssion and devise an individualized program for Elevation Training, and Lymphedema Therapy New precaution - to improve, our physical therapists will perform initial evaluation of pt's status upon admission and devise an individualized program for Patient precaution education Poor balance - to improve, our physical therapists will perform initial evaluation of pt's status up on admission and devise an individualized program for Balance Training Weakness - to improve, our physical therapists will perform initial evaluation of pt's status upon a dmission and devise an individualized program for Aquatic Therapy, Neuromuscular Reeducation, and Str engthening Achieving independence - to improve, our physical therapists will perform initial evaluation of pt's status upon admission and devise an individualized program for Community Reintegration Activities - Occupational Therapy ADL deficits - to improve, our occupation therapists will perform initial evaluation of pt's status upon admission and devise an individualized program for Bathing, Bed mobility, Community Reintegratio n, Cooking, Dressing, Eating, Fine Motor Skills, Grooming, Homemaking, Kitchen Mobility, Laundry, Pat ient Education, Safety Awareness, Splinting - Positioning, Transfers(Toilet, Tub, Shower), and Wheel Chair Management Cognitive deficits - to improve, our occupation therapists will perform initial evaluation of pt's s tatus upon admission and devise an individualized program for Cognition - orientation Need for healthcare architect - to improve, our occupation therapists will perform initial evaluation of pt's status upon admission and devise an individualized program for Caregiver Training Weakness - to improve, our occupation therapists will perform initial evaluation of pt's status upon admission and devise an individualized program for Aquatic Therapy, Balance, Endurance, UE ROM, and UE strengthening - Other See attached MAR (Medication Administration Record) - Diet Type Continue Regular - Diet - Liquid Texture Continue Regular - Tube Feed Continue N/A - Bladder care per protocol - Weight Bearing Precaution WBAT both LE - Skin care per protocol - Diet - Solid Texture Continue Regular - Shower allowing shower for Dementia, TBI, Stroke, or others FUNCTIONAL STATUS: UPDATED AT WEEKLY TEAM CONFERENCE - Walking Same score based on distance walked: 1(<=50ft) FUNCTIONAL STATUS: - Self-Care A. Eating Ind B. Grooming Ind C. Bathing Nhi D. Dressing - Upper sup E. Dressing - Lower Nhi F. Toileting sup - Sphincter Control G. Bladder control H. Bowel control - Transfers Control I. Bed/Chair/Wheelchair Nhi J. Toilet Nhi K. Tub/Shower Nhi - Locomotion L. Walk/Wheelchair (B) sup M. Stairs modA - Communication N. Comprehension (B) Nhi O. Expression (B) sup - Social Cognition P. Social Interaction Елена Q. Problem Solving sup R. Memory sup - Endurance Good - Balance Good - Safety Awareness Good QI SCORES: - Self-Care A. Eating 05-Setup or clean-up assistance B. Oral hygiene 05-Setup or clean-up assistance C. Toileting hygiene 04-Supervision or touching assistance E. Shower/bathe self 03-Partial/moderate assistance F. Upper body dressing 05-Setup or clean-up assistance G. Lower body dressing 03-Partial/moderate assistance H. Putting on/taking off footwear 03-Partial/moderate assistance - Mobility A. Roll left and right 04-Supervision or touching assistance B. Sit to lying 03-Partial/moderate assistance C. Lying to sitting on side of bed 03-Partial/moderate assistance D. Sit to stand 03-Partial/moderate assistance E. Chair/plw-cx-[id number] transfer 03-Partial/moderate assistance F. Toilet transfer 03-Partial/moderate assistance G. Car transfer 88-Not attempted due to medical condition or safety concerns I. Walk 10 feet 04-Supervision or touching assistance J. Walk 50 feet with two turns 04-Supervision or touching assistance K. Walk 150 feet 88-Not attempted due to medical condition or safety concerns L. Walking 10 feet on uneven surfaces 88-Not attempted due to medical condition or safety concerns M. 1 step (curb) 88-Not attempted due to medical condition or safety concerns N. 4 steps 88-Not attempted due to medical condition or safety concerns O. 12 steps 88-Not attempted due to medical condition or safety concerns P. Picking up object 88-Not attempted due to medical condition or safety concerns - Bladder and Bowel Bladder continence 0-Always continent Bowel continence 0-Always continent - Endurance Poor - Balance Poor - Safety Awareness Poor CURRENT FUNC. DEFICITS: Self-Care, Mobility, Endurance, Balance, and Safety Awareness SIGNATURE PANEL: (CDT)
[2019-11-26] MEDS: ATORVASTATIN 80 MG TAB PO SCH (20:25)
[2019-11-26] MEDS: MELATONIN 3 MG TABLET PO PRN (20:25)
[2019-11-27] MEDS: CLOPIDOGREL 75 MG TABLET PO SCH (07:10)
[2019-11-27] MEDS: lisinopriL 5 MG TAB PO SCH ×2 (07:10→19:57)
[2019-11-27] MEDS: MEGESTROL 40 MG TAB PO SCH ×2 (07:11→19:57)
[2019-11-27] MEDS: ASPIRIN 81 MG CHEWABLE TABLET PO SCH (07:11)
[2019-11-27] MEDS: POTASSIUM CL SA 10 MEQ TAB PO SCH (07:11)
[2019-11-27] MEDS: THIAMINE HCL 100 MG TABLET PO SCH (07:11)
[2019-11-27] MEDS: FLUOXETINE 20 MG CAP PO SCH (07:12)
[2019-11-27] MEDS: CYANOCOBALAMIN 1,000 MCG TAB PO SCH (07:12)
[2019-11-27] MEDS: VITAMIN D 1000 UNIT TAB PO SCH (07:30)
[2019-11-27] MEDS: ENOXAPARIN 30 MG/0.3 ML SQ SCH (16:43)
[2019-11-27] MEDS: TRAZODONE 50 MG TABLET PO PRN (19:59)
[2019-11-27] MEDS: ATORVASTATIN 80 MG TAB PO SCH (19:59)
[2019-11-28 07:21] LABS: Absolute Lymphocytes (CBC) 2.2 K/uL (0.7-4.9); Hematocrit 36.9 % (36.0-45.0); Lymphocytes % 29.9 % (15.3-44.8); MPV 9.9 fL (7.6-11.3); RBC Red Blood Cell Count 4.12 M/uL (3.86-4.86)
[2019-11-28 07:44] LABS: Albumin 3.1 g/dL (3.4-5.0); BUN Blood Urea Nitrogen 13 mg/dL (7-18); Bicarbonate 27 mmol/L (21-32); Glucose Level 93 mg/dL (74-106); Potassium 4.1 mmol/L (3.5-5.1); Prealbumin 18.4 mg/dL (20-40); Sodium Level 145 mmol/L (136-145)
[2019-11-28] MEDS: ASPIRIN 81 MG CHEWABLE TABLET PO SCH (08:16)
[2019-11-28] MEDS: FLUOXETINE 20 MG CAP PO SCH (08:17)
[2019-11-28] MEDS: lisinopriL 5 MG TAB PO SCH ×2 (08:17→19:55)
[2019-11-28] MEDS: CLOPIDOGREL 75 MG TABLET PO SCH (08:17)
[2019-11-28] MEDS: POTASSIUM CL SA 10 MEQ TAB PO SCH (08:17)
[2019-11-28] MEDS: MEGESTROL 40 MG TAB PO SCH ×2 (08:18→19:54)
[2019-11-28] MEDS: CYANOCOBALAMIN 1,000 MCG TAB PO SCH (08:18)
[2019-11-28] MEDS: VITAMIN D 1000 UNIT TAB PO SCH (08:18)
[2019-11-28] MEDS: THIAMINE HCL 100 MG TABLET PO SCH (08:18)
--- NOTE | 2019-11-28 14:33 | FAST ---
SHIFT START DATE/TIME: 11/28/2019 07:00 (CDT) SHIFT END DATE/TIME: 11/28/2019 19:00 (CDT) NAME JULIANN MERRITT DATE OF : 1950 DATE OF ADMISSION: 11/20/2019 19:16 (CDT) PHONE: AGE: 69 N# [id number] GENDER: Female ENCOUNTER PHYSICIAN: Dr. Omar Barone M.D. ADMISSION DIAGNOSIS: - Stroke 01 - Right Body (Left Brain) (01.2) EATING: EATING - STEP 1: Does the patient complete the activity by him/herself with no assistance (physical, verbal/nonverbal cueing, setup/clean-up)? No. EATING - STEP 2: Does the patient need only setup/clean-up assistance from one helper? Yes. 1. [id number] ADMISSION PERFORMANCE: Setup or clean-up assistance CODE: 05 ORAL HYGIENE: ORAL HYGIENE - STEP 1: Does the patient complete the activity by him/herself with no assistance (physical, verbal/nonverbal cueing, setup/clean-up)? No. ORAL HYGIENE - STEP 2: Does the patient need only setup/clean-up assistance from one helper? Yes. 1. [id number] ADMISSION PERFORMANCE: Setup or clean-up assistance CODE: 05 TOILETING HYGIENE: TOILETING HYGIENE - STEP 1: Does the patient complete the activity by him/herself with no assistance (physical, verbal/nonverbal cueing, setup/clean-up)? No. TOILETING HYGIENE - STEP 2: Does the patient need only setup/clean-up assistance from one helper? Yes. 1. [id number] ADMISSION PERFORMANCE: Setup or clean-up assistance CODE: 05 BATHING: Not assessed/no information CODE: - DRESSING - UPPER BODY: DRESSING - UPPER BODY - STEP 1: Does the patient complete the activity by him/herself with no assistance (physical, verbal/nonverbal cueing, setup/clean-up)? No. DRESSING - UPPER BODY - STEP 2: Does the patient need only setup/clean-up assistance from one helper? Yes. 1. [id number] ADMISSION PERFORMANCE: Setup or clean-up assistance CODE: 05 DRESSING - LOWER BODY: DRESSING - LOWER BODY - STEP 1: Does the patient complete the activity by him/herself with no assistance (physical, verbal/nonverbal cueing, setup/clean-up)? No. DRESSING - LOWER BODY - STEP 2: Does the patient need only setup/clean-up assistance from one helper? Yes. 1. [id number] ADMISSION PERFORMANCE: Setup or clean-up assistance CODE: 05 PUTTING ON/TAKING OFF FOOTWEAR: FOOTWEAR - STEP 1: Does the patient complete the activity by him/herself with no assistance (physical, verbal/nonverbal cueing, setup/clean-up)? No. FOOTWEAR - STEP 2: Does the patient need only setup/clean-up assistance from one helper? No. FOOTWEAR - STEP 3: Does the patient need only verbal/nonverbal cueing or touching/steadying/contact guard assistance fro m one helper? Yes. 1. [id number] ADMISSION PERFORMANCE: Supervision or touching assistance CODE: 04 ROLL LEFT AND RIGHT: ROLL LEFT AND RIGHT - STEP 1: Does the patient complete the activity by him/herself with no assistance (physical, verbal/nonverbal cueing, setup/clean-up)? No. ROLL LEFT AND RIGHT - STEP 2: Does the patient need only setup/clean-up assistance from one helper? Yes. 1. [id number] ADMISSION PERFORMANCE: Setup or clean-up assistance CODE: 05 SIT TO LYING: SIT TO LYING - STEP 1: Does the patient complete the activity by him/herself with no assistance (physical, verbal/nonverbal cueing, setup/clean-up)? No. SIT TO LYING - STEP 2: Does the patient need only setup/clean-up assistance from one helper? Yes. 1. [id number] ADMISSION PERFORMANCE: Setup or clean-up assistance CODE: 05 LYING TO SITTING: LYING TO SITTING ON SIDE OF BED - STEP 1: Does the patient complete the activity by him/herself with no assistance (physical, verbal/nonverbal cueing, setup/clean-up)? No. LYING TO SITTING ON SIDE OF BED - STEP 2: Does the patient need only setup/clean-up assistance from one helper? Yes. 1. [id number] ADMISSION PERFORMANCE: Setup or clean-up assistance CODE: 05 SIT TO STAND: SIT TO STAND - STEP 1: Does the patient complete the activity by him/herself with no assistance (physical, verbal/nonverbal cueing, setup/clean-up)? No. SIT TO STAND - STEP 2: Does the patient need only setup/clean-up assistance from one helper? Yes. 1. [id number] ADMISSION PERFORMANCE: Setup or clean-up assistance CODE: 05 TRANSFERS: BED, CHAIR: CHAIR/[id number] TRANSFER - STEP 1: Does the patient complete the activity by him/herself with no assistance (physical, verbal/nonverbal cueing, setup/clean-up)? No. CHAIR/[id number] TRANSFER - STEP 2: Does the patient need only setup/clean-up assistance from one helper? Yes. 1. [id number] ADMISSION PERFORMANCE: Setup or clean-up assistance CODE: 05 TRANSFER TOILET: TOILET TRANSFER - STEP 1: Does the patient complete the activity by him/herself with no assistance (physical, verbal/nonverbal cueing, setup/clean-up)? No. TOILET TRANSFER - STEP 2: Does the patient need only setup/clean-up assistance from one helper? Yes. 1. [id number] ADMISSION PERFORMANCE: Setup or clean-up assistance CODE: 05 TRANSFERS: CAR: Not assessed/no information CODE: - WALK 10 FEET: Not assessed/no information CODE: - 1 STEP (CURB): Not assessed/no information CODE: - PICKING UP OBJECT: Not assessed/no information CODE: - DOES THE PATIENT USE A WHEELCHAIR/SCOOTER? Q1. DOES THE PATIENT USE A WHEELCHAIR/SCOOTER?: No CODE: 0 INDICATE THE TYPE OF WHEELCHAIR/SCOOTER USED: CODE: EXPR INDICATE THE TYPE OF WHEELCHAIR/SCOOTER USED: CODE: EXPR BLADDER AND BOWEL: H350. BLADDER CONTINENCE (3-DAY ASSESSMENT PERIOD): Always continent (no documented incontinence) CODE: 0 H400. BOWEL CONTINENCE (3-DAY ASSESSMENT PERIOD): Always continent CODE: 0 SIGNATURE PANEL: The following modified sections: 1. [id number] Admission Performance, 1. [id number] Admission Performance, 1. [id number] Admission Performance, 1. [id number] Admission Performance, 1. [id number] Admission Performance, 1. [id number] Admission Performance, 1. [id number] Admission Performance, 1. [id number] Admission Performance , 1. [id number] Admission Performance, 1. [id number] Admission Performance, 1. [id number] Admission Performanc e, 1. [id number] Admission Performance, 1. [id number] Admission Performance, 1. [id number] Admission Performan ce, 1. [id number] Admission Performance, 1. [id number] Admission Performance, Q1. Does the patient use a wh eelchair/scooter?, H350. Bladder Continence (3-day assessment period), H400. Bowel Continence (3-day assessment period) were [electronically] signed by Moris NicholsNPrem on MonNov 28 2019 14:31:58 G MT-0500 (Central Daylight Time)
[2019-11-28] MEDS: ENOXAPARIN 30 MG/0.3 ML SQ SCH (15:59)
--- NOTE | 2019-11-28 18:10 | R.PN ---
ENCOUNTER DATE AND TIME: 11/28/2019 18:05 (CDT) NAME JULIANN MERRITT DATE OF : 1950 DATE OF ADMISSION: 11/20/2019 19:16 (CDT) Stroke with aphasia and incoordination. SUBJECTIVE: Pt denied any Shortness of Breath. Pt denied any depression. CBC with differential is normal. Prealumin 18.4, K 4.1, prealbumin 18.4. Ambulated 1000' with standby assistance using a rolling walker. Up and down 15 steps with standby ass istance using bilateral handrails. VITAL SIGNS Temperature: 97.9 F SBP/DBP: 138/64 Pulse: 64 Resp: 16 MEDICATION ALLERGIES: CODEINE ENVIRONMENTAL ALLERGIES: None Known - Substance Allergies None Known - Other Allergies None Known NURSING: - Shower allowing shower - Bladder care per protocol - Skin care per protocol PRECAUTIONS: - Weight Bearing Precaution WBAT both LE ACTIVITIES OOB only with supervision THERAPIES: - Occupational Therapy Cognitive Retraining. Visual Perceptual Training. - Dietary and Nutrition Adequate Nutrition. Nutritional Education. Nutritional Supplements. - Speech Therapy Cognitive Training. Expressive Language Skills. Memory Strategies. Receptive Language Skills. Speech Intelligibility Training. PHYSICAL EXAM - Gen Alert and awake Lying in bed No apparent distress Oriented to: person, time, and place - Skin No skin breakdown. Normacephalic - Eyes No abnormalities - ENMT No abnormalities - Neck No abnormalities - CVS RRR - Chest No abnormalities - Resp Clear to auscultation - Abd Soft - GI Non distended Deferred - No abnormalities - Ext No significant edema - MSK 4+/5 weakness in left upper and lower extremity - Neuro 4/5 strength right upper and lower extremities. - Psych No abnormalities ASSESSMENT: Patient has realistic goal of being discharged at assistance level 6-Елена to reside at Home with [facility] er. MDM/PLAN: - Physical Therapy Gait dysfunction - to improve, our physical therapists will perform initial evaluation of pt's statu s upon admission and devise an individualized program for Gait Training, and Wheel Chair mobility Inability to transfer - to improve, our physical therapists will perform initial evaluation of pt's status upon admission and devise an individualized program for Bed mobility Need for home safety evaluation - to improve, our physical therapists will perform initial evaluatio n of pt's status upon admission and devise an individualized program for Home Evaluation Need in caregiver upon discharge - to improve, our physical therapists will perform initial evaluati on of pt's status upon admission and devise an individualized program for Caregiver Training Edema - to improve, our physical therapists will perform initial evaluation of pt's status upon admi ssion and devise an individualized program for Elevation Training, and Lymphedema Therapy New precaution - to improve, our physical therapists will perform initial evaluation of pt's status upon admission and devise an individualized program for Patient precaution education Poor balance - to improve, our physical therapists will perform initial evaluation of pt's status up on admission and devise an individualized program for Balance Training Weakness - to improve, our physical therapists will perform initial evaluation of pt's status upon a dmission and devise an individualized program for Aquatic Therapy, Neuromuscular Reeducation, and Str engthening Achieving independence - to improve, our physical therapists will perform initial evaluation of pt's status upon admission and devise an individualized program for Community Reintegration Activities - Occupational Therapy ADL deficits - to improve, our occupation therapists will perform initial evaluation of pt's status upon admission and devise an individualized program for Bathing, Bed mobility, Community Reintegratio n, Cooking, Dressing, Eating, Fine Motor Skills, Grooming, Homemaking, Kitchen Mobility, Laundry, Pat ient Education, Safety Awareness, Splinting - Positioning, Transfers(Toilet, Tub, Shower), and Wheel Chair Management Cognitive deficits - to improve, our occupation therapists will perform initial evaluation of pt's s tatus upon admission and devise an individualized program for Cognition - orientation Need for patient care associate - to improve, our occupation therapists will perform initial evaluation of pt's status upon admission and devise an individualized program for Caregiver Training Weakness - to improve, our occupation therapists will perform initial evaluation of pt's status upon admission and devise an individualized program for Aquatic Therapy, Balance, Endurance, UE ROM, and UE strengthening - Other See attached MAR (Medication Administration Record) - Diet Type Continue Regular - Diet - Liquid Texture Continue Regular - Tube Feed Continue N/A - Bladder care per protocol - Weight Bearing Precaution WBAT both LE - Skin care per protocol - Diet - Solid Texture Continue Regular - Shower allowing shower for Dementia, TBI, Stroke, or others FUNCTIONAL STATUS: UPDATED AT WEEKLY TEAM CONFERENCE - Walking Same score based on distance walked: 1(<=50ft) FUNCTIONAL STATUS: - Self-Care A. Eating Ind B. Grooming Ind C. Bathing Nhi D. Dressing - Upper sup E. Dressing - Lower Nhi F. Toileting sup - Sphincter Control G. Bladder control H. Bowel control - Transfers Control I. Bed/Chair/Wheelchair Nhi J. Toilet Nhi K. Tub/Shower Nhi - Locomotion L. Walk/Wheelchair (B) sup M. Stairs modA - Communication N. Comprehension (B) Nhi O. Expression (B) sup - Social Cognition P. Social Interaction Елена Q. Problem Solving sup R. Memory sup - Endurance Good - Balance Good - Safety Awareness Good QI SCORES: - Self-Care A. Eating 05-Setup or clean-up assistance B. Oral hygiene 05-Setup or clean-up assistance C. Toileting hygiene 04-Supervision or touching assistance E. Shower/bathe self 03-Partial/moderate assistance F. Upper body dressing 05-Setup or clean-up assistance G. Lower body dressing 03-Partial/moderate assistance H. Putting on/taking off footwear 03-Partial/moderate assistance - Mobility A. Roll left and right 04-Supervision or touching assistance B. Sit to lying 03-Partial/moderate assistance C. Lying to sitting on side of bed 03-Partial/moderate assistance D. Sit to stand 03-Partial/moderate assistance E. Chair/qti-ej-elquz transfer 03-Partial/moderate assistance F. Toilet transfer 03-Partial/moderate assistance G. Car transfer 88-Not attempted due to medical condition or safety concerns I. Walk 10 feet 04-Supervision or touching assistance J. Walk 50 feet with two turns 04-Supervision or touching assistance K. Walk 150 feet 88-Not attempted due to medical condition or safety concerns L. Walking 10 feet on uneven surfaces 88-Not attempted due to medical condition or safety concerns M. 1 step (curb) 88-Not attempted due to medical condition or safety concerns N. 4 steps 88-Not attempted due to medical condition or safety concerns O. 12 steps 88-Not attempted due to medical condition or safety concerns P. Picking up object 88-Not attempted due to medical condition or safety concerns - Bladder and Bowel Bladder continence 0-Always continent Bowel continence 0-Always continent - Endurance Poor - Balance Poor - Safety Awareness Poor CURRENT FUNC. DEFICITS: Self-Care, Mobility, Endurance, Balance, and Safety Awareness SIGNATURE PANEL: (CDT)
[2019-11-28] MEDS: ATORVASTATIN 80 MG TAB PO SCH (19:59)
[2019-11-28] MEDS: MELATONIN 3 MG TABLET PO PRN (20:02)
[2019-11-28] MEDS: TRAZODONE 50 MG TABLET PO PRN (20:02)
[2019-11-29] MEDS: VITAMIN D 1000 UNIT TAB PO SCH (06:51)
[2019-11-29] MEDS: THIAMINE HCL 100 MG TABLET PO SCH (06:51)
[2019-11-29] MEDS: ASPIRIN 81 MG CHEWABLE TABLET PO SCH (06:51)
[2019-11-29] MEDS: MEGESTROL 40 MG TAB PO SCH ×2 (06:51→20:43)
[2019-11-29] MEDS: CYANOCOBALAMIN 1,000 MCG TAB PO SCH (06:51)
[2019-11-29] MEDS: POTASSIUM CL SA 10 MEQ TAB PO SCH (06:52)
[2019-11-29] MEDS: lisinopriL 5 MG TAB PO SCH ×2 (06:52→20:44)
[2019-11-29] MEDS: FLUOXETINE 20 MG CAP PO SCH (06:52)
[2019-11-29] MEDS: CLOPIDOGREL 75 MG TABLET PO SCH (06:52)
--- NOTE | 2019-11-29 09:46 | P.RH.PN ---
Estimated Length of Stay: 21 Expected Discharge Date: 12/10/19 Discharge Disposition Plan: Home Family Support: Yes Shelter Goal: Mobility, Transfers, Self Care Vital Signs: Last Vital Signs Temp 98.7 F 11/29/19 06:28 Pulse 67 11/29/19 06:52 Resp 12 11/29/19 06:28 BP 144/64 H 11/29/19 06:52 Pulse Ox 94 11/29/19 06:28 Laboratory: Laboratory Last Values WBC 7.4 K/uL (4.3-10.9) D 11/28/19 06:09 RBC 4.12 M/uL (3.86-4.86) 11/28/19 06:09 Hgb 12.7 g/dL (12.0-15.0) 11/28/19 06:09 Hct 36.9 % (36.0-45.0) 11/28/19 06:09 MCV 89.5 fL (80-100) 11/28/19 06:09 MCH 30.8 pg (27.0-35.0) 11/28/19 06:09 MCHC 34.4 g/dL (32.0-36.0) 11/28/19 06:09 RDW 14.3 % (12.1-15.2) 11/28/19 06:09 Plt Count 185 K/uL (152-406) 11/28/19 06:09 MPV 9.9 fL (7.6-11.3) 11/28/19 06:09 Neutrophils % 60.9 % (41.7-73.7) 11/28/19 06:09 Lymphocytes % 29.9 % (15.3-44.8) 11/28/19 06:09 Monocytes % 6.2 % (3.3-12.3) 11/28/19 06:09 Eosinophils % 2.0 % (0-4.4) 11/28/19 06:09 Basophils % 1.0 % (0-1.3) 11/28/19 06:09 Absolute Neutrophils 4.5 K/uL (1.8-8.0) 11/28/19 06:09 Absolute Lymphocytes 2.2 K/uL (0.7-4.9) 11/28/19 06:09 Absolute Monocytes 0.5 K/uL (0.1-1.3) 11/28/19 06:09 Absolute Eosinophils 0.2 K/uL (0-0.5) 11/28/19 06:09 Absolute Basophils 0.1 K/uL (0-0.5) 11/28/19 06:09 Sodium 145 mmol/L (136-145) 11/28/19 06:09 Potassium 4.1 mmol/L (3.5-5.1) 11/28/19 06:09 Chloride 113 mmol/L (98-107) H 11/28/19 06:09 Carbon Dioxide 27 mmol/L (21-32) 11/28/19 06:09 BUN 13 mg/dL (7-18) 11/28/19 06:09 Creatinine 0.56 mg/dL (0.55-1.3) 11/28/19 06:09 Estimated GFR > 90 mL/min (=/>90) 11/28/19 06:09 Glucose 93 mg/dL (74-106) 11/28/19 06:09 Calcium 9.1 mg/dL (8.5-10.1) 11/28/19 06:09 Magnesium 2.1 mg/dL (1.8-2.4) 11/21/19 15:30 Albumin 3.1 g/dL (3.4-5.0) L 11/28/19 06:09 Prealbumin 18.4 mg/dL (20-40) L 11/28/19 06:09 Urine Color Dk yellow 11/20/19 20:00 Urine Appearance Turbid 11/20/19 20:00 Urine pH 5.5 (5.0-7.0) 11/20/19 20:00 Ur Specific [place] >=1.030 (1.005-1.030) 11/20/19 20:00 Glucose (UA)(Auto) Negative (NEG) 11/20/19 20:00 Urine Ketones 1+ (NEG) H 11/20/19 20:00 Urine Blood Negative (NEG) 11/20/19 20:00 Urine Nitrite Negative (NEG) 11/20/19 20:00 Urine Bilirubin Negative (NEG) 11/20/19 20:00 Urine Urobilinogen 0.2 mg/dL (0.2-1.0) 11/20/19 20:00 Ur Leukocyte Esterase Negative (NEG) 11/20/19 20:00 Urine RBC None seen /HPF (NONE SEEN) 11/20/19 20:00 Urine WBC <5 /HPF (<5) 11/20/19 20:00 Ur Squamous Epith Cells <5 /HPF (NONE SEEN) 11/20/19 20:00 Ur Urothelial Cells <5 /HPF (NONE SEEN) 11/20/19 20:00 Amorphous Sediment 4+ /HPF (NONE SEEN) H 11/20/19 20:00 Urine Bacteria <20 /HPF (<20) 11/20/19 20:00 Urine Culture Reflexed Not needed 11/20/19 20:00 Urine Total Protein Negative (NEG) 11/20/19 20:00 Weight: 131 lb 8 oz Wound Present: No Closed Surgical Incision Present: Yes Negative Pressure Wound Therapy Present: No Physician Update: Her labs were reviewed and are stable. She is walking 500' standby assistance, independent with transfers. She has persistent problems with safety awareness. Functional Improvement: pt presents with mild strength deficits on the R side. pt demonstrates impaired balance and stability during ambulation and functional transfers. pt exhibits reduced trunk strength. pt experiences reduced tolerance to functional activity due to weakness and fatigue. Skilled PT services are necessary to address the above mentioned impairments and functional limitations. Speech Therapy Update: Patient is making significant progress in speech therapy. She has already exhibited the ability to perform verbal abstraction as well as improving her visuospatial skills, comprehension and expression of directional and spatial concepts, as well as other problem solving skills. Patient continues to require cues to stay in her walker as well as other safety precautions to reduce risk for falls/injuries. Patient will likely require some intermittent supervision upon d/c to home. 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 Please see the Rehabilitation Signature page for all necessary signatures.
--- NOTE | 2019-11-29 15:43 | FAST ---
ENCOUNTER DATE AND TIME: 11/29/2019 08:00 (CDT) NAME JULIANN MERRITT DATE OF : 1950 DATE OF ADMISSION: 11/20/2019 19:16 (CDT) PHONE: AGE: 69 N# [id number] GENDER: Female ENCOUNTER PHYSICIAN: Dr. Omar Barone M.D. ADMISSION DIAGNOSIS: - Stroke 01 - Right Body (Left Brain) (01.2) EATING: Not assessed/no information CODE: - ORAL HYGIENE: ORAL HYGIENE - STEP 1: Does the patient complete the activity by him/herself with no assistance (physical, verbal/nonverbal cueing, setup/clean-up)? Yes. 1. [id number] ADMISSION PERFORMANCE: Independent CODE: 06 TOILETING HYGIENE: Not assessed/no information CODE: - BATHING: SHOWER/BATHE SELF - STEP 1: Does the patient complete the activity by him/herself with no assistance (physical, verbal/nonverbal cueing, setup/clean-up)? No. SHOWER/BATHE SELF - STEP 2: Does the patient need only setup/clean-up assistance from one helper? No. SHOWER/BATHE SELF - STEP 3: Does the patient need only verbal/nonverbal cueing or touching/steadying/contact guard assistance fro m one helper? Yes. 1. [id number] ADMISSION PERFORMANCE: Supervision or touching assistance CODE: 04 DRESSING - UPPER BODY: DRESSING - UPPER BODY - STEP 1: Does the patient complete the activity by him/herself with no assistance (physical, verbal/nonverbal cueing, setup/clean-up)? No. DRESSING - UPPER BODY - STEP 2: Does the patient need only setup/clean-up assistance from one helper? No. DRESSING - UPPER BODY - STEP 3: Does the patient need only verbal/nonverbal cueing or touching/steadying/contact guard assistance fro m one helper? Yes. 1. [id number] ADMISSION PERFORMANCE: Supervision or touching assistance CODE: 04 DRESSING - LOWER BODY: DRESSING - LOWER BODY - STEP 1: Does the patient complete the activity by him/herself with no assistance (physical, verbal/nonverbal cueing, setup/clean-up)? No. DRESSING - LOWER BODY - STEP 2: Does the patient need only setup/clean-up assistance from one helper? No. DRESSING - LOWER BODY - STEP 3: Does the patient need only verbal/nonverbal cueing or touching/steadying/contact guard assistance fro m one helper? Yes. 1. [id number] ADMISSION PERFORMANCE: Supervision or touching assistance CODE: 04 PUTTING ON/TAKING OFF FOOTWEAR: FOOTWEAR - STEP 1: Does the patient complete the activity by him/herself with no assistance (physical, verbal/nonverbal cueing, setup/clean-up)? No. FOOTWEAR - STEP 2: Does the patient need only setup/clean-up assistance from one helper? No. FOOTWEAR - STEP 3: Does the patient need only verbal/nonverbal cueing or touching/steadying/contact guard assistance fro m one helper? Yes. 1. [id number] ADMISSION PERFORMANCE: Supervision or touching assistance CODE: 04 DOES THE PATIENT USE A WHEELCHAIR/SCOOTER? CODE: EXPR INDICATE THE TYPE OF WHEELCHAIR/SCOOTER USED: CODE: EXPR INDICATE THE TYPE OF WHEELCHAIR/SCOOTER USED: CODE: EXPR BLADDER AND BOWEL: CODE: EXPR CODE: EXPR SIGNATURE PANEL: The following modified sections: 1. [id number] Admission Performance, 1. [id number] Admission Performance, 1. [id number] Admission Performance, 1. [id number] Admission Performance, 1. [id number] Admission Performance were [electronically] signed by ZOE Neumann on MonNov 29 2019 15:42:32 GMT-0500 (Central Daylight Time)
[2019-11-29] MEDS: ENOXAPARIN 30 MG/0.3 ML SQ SCH (16:11)
[2019-11-29] MEDS: ATORVASTATIN 80 MG TAB PO SCH (20:44)
[2019-11-29] MEDS: DOCUSATE NA/SENNA CONC 1 TAB PO PRN (20:44)
[2019-11-29] MEDS: MELATONIN 3 MG TABLET PO PRN (20:44)
--- NOTE | 2019-11-30 02:22 | FAST ---
SHIFT START DATE/TIME: 11/29/2019 19:00 (CDT) SHIFT END DATE/TIME: 11/30/2019 07:00 (CDT) NAME JULIANN MERRITT DATE OF : 1950 DATE OF ADMISSION: 11/20/2019 19:16 (CDT) PHONE: AGE: 69 N# [id number] GENDER: Female ENCOUNTER PHYSICIAN: Dr. Omar Barone M.D. ADMISSION DIAGNOSIS: - Stroke 01 - Right Body (Left Brain) (01.2) EATING: Not assessed/no information CODE: - ORAL HYGIENE: Not assessed/no information CODE: - TOILETING HYGIENE: TOILETING HYGIENE - STEP 1: Does the patient complete the activity by him/herself with no assistance (physical, verbal/nonverbal cueing, setup/clean-up)? No. TOILETING HYGIENE - STEP 2: Does the patient need only setup/clean-up assistance from one helper? No. TOILETING HYGIENE - STEP 3: Does the patient need only verbal/nonverbal cueing or touching/steadying/contact guard assistance fro m one helper? Yes. 1. [id number] ADMISSION PERFORMANCE: Supervision or touching assistance CODE: 04 BATHING: Not assessed/no information CODE: - DRESSING - UPPER BODY: Not assessed/no information CODE: - DRESSING - LOWER BODY: Not assessed/no information CODE: - PUTTING ON/TAKING OFF FOOTWEAR: Not assessed/no information CODE: - ROLL LEFT AND RIGHT: ROLL LEFT AND RIGHT - STEP 1: Does the patient complete the activity by him/herself with no assistance (physical, verbal/nonverbal cueing, setup/clean-up)? No. ROLL LEFT AND RIGHT - STEP 2: Does the patient need only setup/clean-up assistance from one helper? No. ROLL LEFT AND RIGHT - STEP 3: Does the patient need only verbal/nonverbal cueing or touching/steadying/contact guard assistance fro m one helper? Yes. 1. [id number] ADMISSION PERFORMANCE: Supervision or touching assistance CODE: 04 SIT TO LYING: SIT TO LYING - STEP 1: Does the patient complete the activity by him/herself with no assistance (physical, verbal/nonverbal cueing, setup/clean-up)? No. SIT TO LYING - STEP 2: Does the patient need only setup/clean-up assistance from one helper? No. SIT TO LYING - STEP 3: Does the patient need only verbal/nonverbal cueing or touching/steadying/contact guard assistance fro m one helper? Yes. 1. [id number] ADMISSION PERFORMANCE: Supervision or touching assistance CODE: 04 LYING TO SITTING: LYING TO SITTING ON SIDE OF BED - STEP 1: Does the patient complete the activity by him/herself with no assistance (physical, verbal/nonverbal cueing, setup/clean-up)? No. LYING TO SITTING ON SIDE OF BED - STEP 2: Does the patient need only setup/clean-up assistance from one helper? No. LYING TO SITTING ON SIDE OF BED - STEP 3: Does the patient need only verbal/nonverbal cueing or touching/steadying/contact guard assistance fro m one helper? Yes. 1. [id number] ADMISSION PERFORMANCE: Supervision or touching assistance CODE: 04 SIT TO STAND: SIT TO STAND - STEP 1: Does the patient complete the activity by him/herself with no assistance (physical, verbal/nonverbal cueing, setup/clean-up)? No. SIT TO STAND - STEP 2: Does the patient need only setup/clean-up assistance from one helper? No. SIT TO STAND - STEP 3: Does the patient need only verbal/nonverbal cueing or touching/steadying/contact guard assistance fro m one helper? Yes. 1. [id number] ADMISSION PERFORMANCE: Supervision or touching assistance CODE: 04 TRANSFERS: BED, CHAIR: CHAIR/TRU-TE-SACYE TRANSFER - STEP 1: Does the patient complete the activity by him/herself with no assistance (physical, verbal/nonverbal cueing, setup/clean-up)? No. CHAIR/[id number] TRANSFER - STEP 2: Does the patient need only setup/clean-up assistance from one helper? No. CHAIR/[id number] TRANSFER - STEP 3: Does the patient need only verbal/nonverbal cueing or touching/steadying/contact guard assistance fro m one helper? Yes. 1. [id number] ADMISSION PERFORMANCE: Supervision or touching assistance CODE: 04 TRANSFER TOILET: TOILET TRANSFER - STEP 1: Does the patient complete the activity by him/herself with no assistance (physical, verbal/nonverbal cueing, setup/clean-up)? No. TOILET TRANSFER - STEP 2: Does the patient need only setup/clean-up assistance from one helper? No. TOILET TRANSFER - STEP 3: Does the patient need only verbal/nonverbal cueing or touching/steadying/contact guard assistance fro m one helper? Yes. 1. [id number] ADMISSION PERFORMANCE: Supervision or touching assistance CODE: 04 TRANSFERS: CAR: Not assessed/no information CODE: - WALK 10 FEET: Not assessed/no information CODE: - 1 STEP (CURB): Not assessed/no information CODE: - PICKING UP OBJECT: Not assessed/no information CODE: - DOES THE PATIENT USE A WHEELCHAIR/SCOOTER? CODE: EXPR WHEEL 50 FEET WITH TWO TURNS: Not assessed/no information CODE: - INDICATE THE TYPE OF WHEELCHAIR/SCOOTER USED: CODE: EXPR WHEEL 150 FEET: Not assessed/no information CODE: - INDICATE THE TYPE OF WHEELCHAIR/SCOOTER USED: CODE: EXPR BLADDER AND BOWEL: H350. BLADDER CONTINENCE (3-DAY ASSESSMENT PERIOD): Always continent (no documented incontinence) CODE: 0 H400. BOWEL CONTINENCE (3-DAY ASSESSMENT PERIOD): Always continent CODE: 0
[2019-11-30 05:38] VITALS: BMI 23.8
[2019-11-30] MEDS: lisinopriL 5 MG TAB PO SCH ×2 (07:33→20:25)
[2019-11-30] MEDS: CLOPIDOGREL 75 MG TABLET PO SCH (07:34)
[2019-11-30] MEDS: THIAMINE HCL 100 MG TABLET PO SCH (07:34)
[2019-11-30] MEDS: VITAMIN D 1000 UNIT TAB PO SCH (07:34)
[2019-11-30] MEDS: ASPIRIN 81 MG CHEWABLE TABLET PO SCH (07:34)
[2019-11-30] MEDS: POTASSIUM CL SA 10 MEQ TAB PO SCH (07:35)
[2019-11-30] MEDS: MEGESTROL 40 MG TAB PO SCH ×2 (07:35→20:25)
[2019-11-30] MEDS: FLUOXETINE 20 MG CAP PO SCH (07:35)
[2019-11-30] MEDS: CYANOCOBALAMIN 1,000 MCG TAB PO SCH (07:35)
[2019-11-30] MEDS: ENOXAPARIN 30 MG/0.3 ML SQ SCH (16:32)
[2019-11-30] MEDS: MELATONIN 3 MG TABLET PO PRN (20:24)
[2019-11-30] MEDS: ATORVASTATIN 80 MG TAB PO SCH (20:25)
[2019-12-01] MEDS: POTASSIUM CL SA 10 MEQ TAB PO SCH (07:23)
[2019-12-01] MEDS: VITAMIN D 1000 UNIT TAB PO SCH (07:23)
[2019-12-01] MEDS: ASPIRIN 81 MG CHEWABLE TABLET PO SCH (07:23)
[2019-12-01] MEDS: MEGESTROL 40 MG TAB PO SCH ×2 (07:24→19:11)
[2019-12-01] MEDS: lisinopriL 5 MG TAB PO SCH ×2 (07:24→19:12)
[2019-12-01] MEDS: THIAMINE HCL 100 MG TABLET PO SCH (07:25)
[2019-12-01] MEDS: CYANOCOBALAMIN 1,000 MCG TAB PO SCH (07:25)
[2019-12-01] MEDS: CLOPIDOGREL 75 MG TABLET PO SCH (07:25)
[2019-12-01] MEDS: FLUOXETINE 20 MG CAP PO SCH (07:25)
[2019-12-01] MEDS: ENOXAPARIN 30 MG/0.3 ML SQ SCH (16:12)
[2019-12-01] MEDS: TRAZODONE 50 MG TABLET PO PRN (20:07)
[2019-12-01] MEDS: ATORVASTATIN 80 MG TAB PO SCH (20:07)
[2019-12-01] MEDS: MELATONIN 3 MG TABLET PO PRN (20:07)
[2019-12-02] MEDS: CLOPIDOGREL 75 MG TABLET PO SCH (07:11)
[2019-12-02] MEDS: MEGESTROL 40 MG TAB PO SCH ×2 (07:11→19:44)
[2019-12-02] MEDS: THIAMINE HCL 100 MG TABLET PO SCH (07:12)
[2019-12-02] MEDS: POTASSIUM CL SA 10 MEQ TAB PO SCH (07:12)
[2019-12-02] MEDS: lisinopriL 5 MG TAB PO SCH ×2 (07:12→19:44)
[2019-12-02] MEDS: CYANOCOBALAMIN 1,000 MCG TAB PO SCH (07:12)
[2019-12-02] MEDS: VITAMIN D 1000 UNIT TAB PO SCH (07:13)
[2019-12-02] MEDS: FLUOXETINE 20 MG CAP PO SCH (07:13)
[2019-12-02] MEDS: ASPIRIN 81 MG CHEWABLE TABLET PO SCH (07:13)
--- NOTE | 2019-12-02 14:42 | FAST ---
ENCOUNTER DATE AND TIME: 12/02/2019 08:00 (CDT) NAME JULIANN MERRITT DATE OF : 1950 DATE OF ADMISSION: 11/20/2019 19:16 (CDT) PHONE: AGE: 69 N# [id number] GENDER: Female ENCOUNTER PHYSICIAN: Dr. Omar Barone M.D. ADMISSION DIAGNOSIS: - Stroke 01 - Right Body (Left Brain) (01.2) EATING: Not assessed/no information CODE: - ORAL HYGIENE: ORAL HYGIENE - STEP 1: Does the patient complete the activity by him/herself with no assistance (physical, verbal/nonverbal cueing, setup/clean-up)? Yes. 1. [id number] ADMISSION PERFORMANCE: Independent CODE: 06 TOILETING HYGIENE: TOILETING HYGIENE - STEP 1: Does the patient complete the activity by him/herself with no assistance (physical, verbal/nonverbal cueing, setup/clean-up)? Yes. 1. [id number] ADMISSION PERFORMANCE: Independent CODE: 06 BATHING: SHOWER/BATHE SELF - STEP 1: Does the patient complete the activity by him/herself with no assistance (physical, verbal/nonverbal cueing, setup/clean-up)? Yes. 1. [id number] ADMISSION PERFORMANCE: Independent CODE: 06 DRESSING - UPPER BODY: DRESSING - UPPER BODY - STEP 1: Does the patient complete the activity by him/herself with no assistance (physical, verbal/nonverbal cueing, setup/clean-up)? Yes. 1. [id number] ADMISSION PERFORMANCE: Independent CODE: 06 DRESSING - LOWER BODY: DRESSING - LOWER BODY - STEP 1: Does the patient complete the activity by him/herself with no assistance (physical, verbal/nonverbal cueing, setup/clean-up)? Yes. 1. [id number] ADMISSION PERFORMANCE: Independent CODE: 06 PUTTING ON/TAKING OFF FOOTWEAR: FOOTWEAR - STEP 1: Does the patient complete the activity by him/herself with no assistance (physical, verbal/nonverbal cueing, setup/clean-up)? Yes. 1. [id number] ADMISSION PERFORMANCE: Independent CODE: 06 DOES THE PATIENT USE A WHEELCHAIR/SCOOTER? CODE: EXPR INDICATE THE TYPE OF WHEELCHAIR/SCOOTER USED: CODE: EXPR INDICATE THE TYPE OF WHEELCHAIR/SCOOTER USED: CODE: EXPR BLADDER AND BOWEL: CODE: EXPR CODE: EXPR SIGNATURE PANEL: The following modified sections: 1. [id number] Admission Performance, 1. [id number] Admission Performance, 1. [id number] Admission Performance, 1. [id number] Admission Performance, 1. [id number] Admission Performance, 1. [id number] Admission Performance were [electronically] signed by ZOE Neumann on MonDec 02 2019 14:41:14 T-0500 (Central Daylight Time)
[2019-12-02] MEDS: ENOXAPARIN 30 MG/0.3 ML SQ SCH (16:56)
--- NOTE | 2019-12-02 18:01 | R.PN ---
ENCOUNTER DATE AND TIME: 12/02/2019 17:56 (CDT) NAME JULIANN MERRITT DATE OF : 1950 DATE OF ADMISSION: 11/20/2019 19:16 (CDT) Stroke with aphasia and incoordination. SUBJECTIVE: Pt denied any Shortness of Breath. Pt denied any depression. CBC with differential is normal. Prealumin 18.4, K 4.1, prealbumin 18.4. Ambulated 500' without an assistive device. Up and down 15 steps with standby assistance using bilate ral handrails. SBP is elevated significantly. Increased Lisinopril to 10 mg twice daily. May add a calcium channel b locker such as Norvasc 5 mg daily. VITAL SIGNS Temperature: 97.3 F SBP/DBP: 184/62 Pulse: 65 Resp: 16 MEDICATION ALLERGIES: CODEINE ENVIRONMENTAL ALLERGIES: None Known - Substance Allergies None Known - Other Allergies None Known NURSING: - Shower allowing shower - Bladder care per protocol - Skin care per protocol PRECAUTIONS: - Weight Bearing Precaution WBAT both LE ACTIVITIES OOB only with supervision THERAPIES: - Occupational Therapy Cognitive Retraining. Visual Perceptual Training. - Dietary and Nutrition Adequate Nutrition. Nutritional Education. Nutritional Supplements. - Speech Therapy Cognitive Training. Expressive Language Skills. Memory Strategies. Receptive Language Skills. Speech Intelligibility Training. PHYSICAL EXAM - Gen Alert and awake Lying in bed No apparent distress Oriented to: person, time, and place - Skin No skin breakdown. Normacephalic - Eyes No abnormalities - ENMT No abnormalities - Neck No abnormalities - CVS RRR - Chest No abnormalities - Resp Clear to auscultation - Abd Soft - GI Non distended Deferred - No abnormalities - Ext No significant edema - MSK 4+/5 weakness in left upper and lower extremity - Neuro 4/5 strength right upper and lower extremities. - Psych No abnormalities ASSESSMENT: Patient has realistic goal of being discharged at assistance level 6-Елена to reside at Home with [facility] er. MDM/PLAN: - Physical Therapy Gait dysfunction - to improve, our physical therapists will perform initial evaluation of pt's statu s upon admission and devise an individualized program for Gait Training, and Wheel Chair mobility Inability to transfer - to improve, our physical therapists will perform initial evaluation of pt's status upon admission and devise an individualized program for Bed mobility Need for home safety evaluation - to improve, our physical therapists will perform initial evaluatio n of pt's status upon admission and devise an individualized program for Home Evaluation Need in caregiver upon discharge - to improve, our physical therapists will perform initial evaluati on of pt's status upon admission and devise an individualized program for Caregiver Training Edema - to improve, our physical therapists will perform initial evaluation of pt's status upon admi ssion and devise an individualized program for Elevation Training, and Lymphedema Therapy New precaution - to improve, our physical therapists will perform initial evaluation of pt's status upon admission and devise an individualized program for Patient precaution education Poor balance - to improve, our physical therapists will perform initial evaluation of pt's status up on admission and devise an individualized program for Balance Training Weakness - to improve, our physical therapists will perform initial evaluation of pt's status upon a dmission and devise an individualized program for Aquatic Therapy, Neuromuscular Reeducation, and Str engthening Achieving independence - to improve, our physical therapists will perform initial evaluation of pt's status upon admission and devise an individualized program for Community Reintegration Activities - Occupational Therapy ADL deficits - to improve, our occupation therapists will perform initial evaluation of pt's status upon admission and devise an individualized program for Bathing, Bed mobility, Community Reintegratio n, Cooking, Dressing, Eating, Fine Motor Skills, Grooming, Homemaking, Kitchen Mobility, Laundry, Pat ient Education, Safety Awareness, Splinting - Positioning, Transfers(Toilet, Tub, Shower), and Wheel Chair Management Cognitive deficits - to improve, our occupation therapists will perform initial evaluation of pt's s tatus upon admission and devise an individualized program for Cognition - orientation Need for animal care provider - to improve, our occupation therapists will perform initial evaluation of pt's status upon admission and devise an individualized program for Caregiver Training Weakness - to improve, our occupation therapists will perform initial evaluation of pt's status upon admission and devise an individualized program for Aquatic Therapy, Balance, Endurance, UE ROM, and UE strengthening - Other See attached MAR (Medication Administration Record) - Diet Type Continue Regular - Diet - Liquid Texture Continue Regular - Tube Feed Continue N/A - Bladder care per protocol - Weight Bearing Precaution WBAT both LE - Skin care per protocol - Diet - Solid Texture Continue Regular - Shower allowing shower for Dementia, TBI, Stroke, or others FUNCTIONAL STATUS: UPDATED AT WEEKLY TEAM CONFERENCE - Walking Same score based on distance walked: 1(<=50ft) FUNCTIONAL STATUS: - Self-Care A. Eating Ind B. Grooming Ind C. Bathing Nhi D. Dressing - Upper sup E. Dressing - Lower Nhi F. Toileting sup - Sphincter Control G. Bladder control H. Bowel control - Transfers Control I. Bed/Chair/Wheelchair Nhi J. Toilet Nhi K. Tub/Shower Nhi - Locomotion L. Walk/Wheelchair (B) sup M. Stairs modA - Communication N. Comprehension (B) Nhi O. Expression (B) sup - Social Cognition P. Social Interaction Елена Q. Problem Solving sup R. Memory sup - Endurance Good - Balance Good - Safety Awareness Good QI SCORES: - Self-Care A. Eating 05-Setup or clean-up assistance B. Oral hygiene 05-Setup or clean-up assistance C. Toileting hygiene 04-Supervision or touching assistance E. Shower/bathe self 03-Partial/moderate assistance F. Upper body dressing 05-Setup or clean-up assistance G. Lower body dressing 03-Partial/moderate assistance H. Putting on/taking off footwear 03-Partial/moderate assistance - Mobility A. Roll left and right 04-Supervision or touching assistance B. Sit to lying 03-Partial/moderate assistance C. Lying to sitting on side of bed 03-Partial/moderate assistance D. Sit to stand 03-Partial/moderate assistance E. Chair/ttg-ig-jdyiv transfer 03-Partial/moderate assistance F. Toilet transfer 03-Partial/moderate assistance G. Car transfer 88-Not attempted due to medical condition or safety concerns I. Walk 10 feet 04-Supervision or touching assistance J. Walk 50 feet with two turns 04-Supervision or touching assistance K. Walk 150 feet 88-Not attempted due to medical condition or safety concerns L. Walking 10 feet on uneven surfaces 88-Not attempted due to medical condition or safety concerns M. 1 step (curb) 88-Not attempted due to medical condition or safety concerns N. 4 steps 88-Not attempted due to medical condition or safety concerns O. 12 steps 88-Not attempted due to medical condition or safety concerns P. Picking up object 88-Not attempted due to medical condition or safety concerns - Bladder and Bowel Bladder continence 0-Always continent Bowel continence 0-Always continent - Endurance Poor - Balance Poor - Safety Awareness Poor CURRENT FUNC. DEFICITS: Self-Care, Mobility, Endurance, Balance, and Safety Awareness SIGNATURE PANEL: (CDT)
[2019-12-02] MEDS: ATORVASTATIN 80 MG TAB PO SCH (20:29)
[2019-12-02] MEDS: MELATONIN 3 MG TABLET PO PRN (20:29)
[2019-12-02] MEDS: TRAZODONE 50 MG TABLET PO PRN (20:30)
[2019-12-03] MEDS: CLOPIDOGREL 75 MG TABLET PO SCH (07:27)
[2019-12-03] MEDS: lisinopriL 5 MG TAB PO SCH ×2 (07:28→19:17)
[2019-12-03] MEDS: THIAMINE HCL 100 MG TABLET PO SCH (07:28)
[2019-12-03] MEDS: ASPIRIN 81 MG CHEWABLE TABLET PO SCH (07:28)
[2019-12-03] MEDS: POTASSIUM CL SA 10 MEQ TAB PO SCH (07:28)
[2019-12-03] MEDS: FLUOXETINE 20 MG CAP PO SCH (07:28)
[2019-12-03] MEDS: CYANOCOBALAMIN 1,000 MCG TAB PO SCH (07:29)
[2019-12-03] MEDS: VITAMIN D 1000 UNIT TAB PO SCH (07:29)
[2019-12-03] MEDS: MEGESTROL 40 MG TAB PO SCH ×2 (07:29→19:16)
[2019-12-03] MEDS: ENOXAPARIN 30 MG/0.3 ML SQ SCH (16:30)
--- NOTE | 2019-12-03 17:34 | R.PN ---
ENCOUNTER DATE AND TIME: 12/03/2019 17:30 (CDT) NAME JULIANN MERRITT DATE OF : 1950 DATE OF ADMISSION: 11/20/2019 19:16 (CDT) Stroke with aphasia and incoordination. SUBJECTIVE: Pt denied any Shortness of Breath. Pt denied any depression. CBC with differential is normal. Prealumin 18.4, K 4.1, prealbumin 18.4. Ambulated 500' without an assistive device. Up and down 15 steps with standby assistance using bilate ral handrails. SBP is elevated significantly. Increased Lisinopril to 10 mg twice daily. May add a calcium channel b locker such as Norvasc 5 mg daily. Balance activities done with supervision. VITAL SIGNS Temperature: 98.4 F SBP/DBP: 150/88 Pulse: 70 Resp: 16 MEDICATION ALLERGIES: CODEINE ENVIRONMENTAL ALLERGIES: None Known - Substance Allergies None Known - Other Allergies None Known NURSING: - Shower allowing shower - Bladder care per protocol - Skin care per protocol PRECAUTIONS: - Weight Bearing Precaution WBAT both LE ACTIVITIES OOB only with supervision THERAPIES: - Occupational Therapy Cognitive Retraining. Visual Perceptual Training. - Dietary and Nutrition Adequate Nutrition. Nutritional Education. Nutritional Supplements. - Speech Therapy Cognitive Training. Expressive Language Skills. Memory Strategies. Receptive Language Skills. Speech Intelligibility Training. PHYSICAL EXAM - Gen Alert and awake Lying in bed No apparent distress Oriented to: person, time, and place - Skin No skin breakdown. Normacephalic - Eyes No abnormalities - ENMT No abnormalities - Neck No abnormalities - CVS RRR - Chest No abnormalities - Resp Clear to auscultation - Abd Soft - GI Non distended Deferred - No abnormalities - Ext No significant edema - MSK 4+/5 weakness in left upper and lower extremity - Neuro 4/5 strength right upper and lower extremities. - Psych No abnormalities ASSESSMENT: Patient has realistic goal of being discharged at assistance level 6-Елена to reside at Home with [facility] er. MDM/PLAN: - Physical Therapy Gait dysfunction - to improve, our physical therapists will perform initial evaluation of pt's statu s upon admission and devise an individualized program for Gait Training, and Wheel Chair mobility Inability to transfer - to improve, our physical therapists will perform initial evaluation of pt's status upon admission and devise an individualized program for Bed mobility Need for home safety evaluation - to improve, our physical therapists will perform initial evaluatio n of pt's status upon admission and devise an individualized program for Home Evaluation Need in caregiver upon discharge - to improve, our physical therapists will perform initial evaluati on of pt's status upon admission and devise an individualized program for Caregiver Training Edema - to improve, our physical therapists will perform initial evaluation of pt's status upon admi ssion and devise an individualized program for Elevation Training, and Lymphedema Therapy New precaution - to improve, our physical therapists will perform initial evaluation of pt's status upon admission and devise an individualized program for Patient precaution education Poor balance - to improve, our physical therapists will perform initial evaluation of pt's status up on admission and devise an individualized program for Balance Training Weakness - to improve, our physical therapists will perform initial evaluation of pt's status upon a dmission and devise an individualized program for Aquatic Therapy, Neuromuscular Reeducation, and Str engthening Achieving independence - to improve, our physical therapists will perform initial evaluation of pt's status upon admission and devise an individualized program for Community Reintegration Activities - Occupational Therapy ADL deficits - to improve, our occupation therapists will perform initial evaluation of pt's status upon admission and devise an individualized program for Bathing, Bed mobility, Community Reintegratio n, Cooking, Dressing, Eating, Fine Motor Skills, Grooming, Homemaking, Kitchen Mobility, Laundry, Pat ient Education, Safety Awareness, Splinting - Positioning, Transfers(Toilet, Tub, Shower), and Wheel Chair Management Cognitive deficits - to improve, our occupation therapists will perform initial evaluation of pt's s tatus upon admission and devise an individualized program for Cognition - orientation Need for intensive care specialist - to improve, our occupation therapists will perform initial evaluation of pt's status upon admission and devise an individualized program for Caregiver Training Weakness - to improve, our occupation therapists will perform initial evaluation of pt's status upon admission and devise an individualized program for Aquatic Therapy, Balance, Endurance, UE ROM, and UE strengthening - Other See attached MAR (Medication Administration Record) - Diet Type Continue Regular - Diet - Liquid Texture Continue Regular - Tube Feed Continue N/A - Bladder care per protocol - Weight Bearing Precaution WBAT both LE - Skin care per protocol - Diet - Solid Texture Continue Regular - Shower allowing shower for Dementia, TBI, Stroke, or others FUNCTIONAL STATUS: UPDATED AT WEEKLY TEAM CONFERENCE - Walking Same score based on distance walked: 1(<=50ft) FUNCTIONAL STATUS: - Self-Care A. Eating Ind B. Grooming Ind C. Bathing Nhi D. Dressing - Upper sup E. Dressing - Lower Nhi F. Toileting sup - Sphincter Control G. Bladder control H. Bowel control - Transfers Control I. Bed/Chair/Wheelchair Nhi J. Toilet Nhi K. Tub/Shower Nhi - Locomotion L. Walk/Wheelchair (B) sup M. Stairs modA - Communication N. Comprehension (B) Nhi O. Expression (B) sup - Social Cognition P. Social Interaction Елена Q. Problem Solving sup R. Memory sup - Endurance Good - Balance Good - Safety Awareness Good QI SCORES: - Self-Care A. Eating 05-Setup or clean-up assistance B. Oral hygiene 05-Setup or clean-up assistance C. Toileting hygiene 04-Supervision or touching assistance E. Shower/bathe self 03-Partial/moderate assistance F. Upper body dressing 05-Setup or clean-up assistance G. Lower body dressing 03-Partial/moderate assistance H. Putting on/taking off footwear 03-Partial/moderate assistance - Mobility A. Roll left and right 04-Supervision or touching assistance B. Sit to lying 03-Partial/moderate assistance C. Lying to sitting on side of bed 03-Partial/moderate assistance D. Sit to stand 03-Partial/moderate assistance E. Chair/zdj-wa-wzavu transfer 03-Partial/moderate assistance F. Toilet transfer 03-Partial/moderate assistance G. Car transfer 88-Not attempted due to medical condition or safety concerns I. Walk 10 feet 04-Supervision or touching assistance J. Walk 50 feet with two turns 04-Supervision or touching assistance K. Walk 150 feet 88-Not attempted due to medical condition or safety concerns L. Walking 10 feet on uneven surfaces 88-Not attempted due to medical condition or safety concerns M. 1 step (curb) 88-Not attempted due to medical condition or safety concerns N. 4 steps 88-Not attempted due to medical condition or safety concerns O. 12 steps 88-Not attempted due to medical condition or safety concerns P. Picking up object 88-Not attempted due to medical condition or safety concerns - Bladder and Bowel Bladder continence 0-Always continent Bowel continence 0-Always continent - Endurance Poor - Balance Poor - Safety Awareness Poor CURRENT FUNC. DEFICITS: Self-Care, Mobility, Endurance, Balance, and Safety Awareness SIGNATURE PANEL: (CDT)
[2019-12-03] MEDS: ATORVASTATIN 80 MG TAB PO SCH (20:36)
[2019-12-03] MEDS: MELATONIN 3 MG TABLET PO PRN (20:36)
[2019-12-03] MEDS: TRAZODONE 50 MG TABLET PO PRN (20:37)
[2019-12-04] MEDS: CYANOCOBALAMIN 1,000 MCG TAB PO SCH (07:18)
[2019-12-04] MEDS: ASPIRIN 81 MG CHEWABLE TABLET PO SCH (07:18)
[2019-12-04] MEDS: MEGESTROL 40 MG TAB PO SCH ×2 (07:18→19:56)
[2019-12-04] MEDS: CLOPIDOGREL 75 MG TABLET PO SCH (07:18)
[2019-12-04] MEDS: FLUOXETINE 20 MG CAP PO SCH (07:19)
[2019-12-04] MEDS: lisinopriL 5 MG TAB PO SCH ×2 (07:19→19:56)
[2019-12-04] MEDS: THIAMINE HCL 100 MG TABLET PO SCH (07:21)
[2019-12-04] MEDS: POTASSIUM CL SA 10 MEQ TAB PO SCH (07:27)
[2019-12-04] MEDS: VITAMIN D 1000 UNIT TAB PO SCH (07:27)
--- NOTE | 2019-12-04 14:41 | FAST ---
ENCOUNTER DATE AND TIME: 12/04/2019 08:00 (CDT) NAME JULIANN MERRITT DATE OF : 1950 DATE OF ADMISSION: 11/20/2019 19:16 (CDT) PHONE: AGE: 69 N# [id number] GENDER: Female ENCOUNTER PHYSICIAN: Dr. Omar Barone M.D. ADMISSION DIAGNOSIS: - Stroke 01 - Right Body (Left Brain) (01.2) EATING: Not assessed/no information CODE: - ORAL HYGIENE: ORAL HYGIENE - STEP 1: Does the patient complete the activity by him/herself with no assistance (physical, verbal/nonverbal cueing, setup/clean-up)? Yes. 1. ADMISSION PERFORMANCE: Independent CODE: 06 TOILETING HYGIENE: Not assessed/no information CODE: - BATHING: SHOWER/BATHE SELF - STEP 1: Does the patient complete the activity by him/herself with no assistance (physical, verbal/nonverbal cueing, setup/clean-up)? Yes. 1. ADMISSION PERFORMANCE: Independent CODE: 06 DRESSING - UPPER BODY: DRESSING - UPPER BODY - STEP 1: Does the patient complete the activity by him/herself with no assistance (physical, verbal/nonverbal cueing, setup/clean-up)? Yes. 1. ADMISSION PERFORMANCE: Independent CODE: 06 DRESSING - LOWER BODY: DRESSING - LOWER BODY - STEP 1: Does the patient complete the activity by him/herself with no assistance (physical, verbal/nonverbal cueing, setup/clean-up)? Yes. 1. ADMISSION PERFORMANCE: Independent CODE: 06 PUTTING ON/TAKING OFF FOOTWEAR: FOOTWEAR - STEP 1: Does the patient complete the activity by him/herself with no assistance (physical, verbal/nonverbal cueing, setup/clean-up)? Yes. 1. [id number] ADMISSION PERFORMANCE: Independent CODE: 06 DOES THE PATIENT USE A WHEELCHAIR/SCOOTER? CODE: EXPR INDICATE THE TYPE OF WHEELCHAIR/SCOOTER USED: CODE: EXPR INDICATE THE TYPE OF WHEELCHAIR/SCOOTER USED: CODE: EXPR BLADDER AND BOWEL: CODE: EXPR CODE: EXPR SIGNATURE PANEL: The following modified sections: 1. [id number] Admission Performance, 1. [id number] Admission Performance, 1. [id number] Admission Performance, 1. [id number] Admission Performance, 1. [id number] Admission Performance were [electronically] signed by ZOE Neumann on MonDec 04 2019 14:40:35 GMT-0500 (Central Daylight Time)
--- NOTE | 2019-12-04 15:04 | FAST ---
SHIFT START DATE/TIME: 12/04/2019 07:00 (CDT) SHIFT END DATE/TIME: 12/04/2019 19:00 (CDT) NAME JULIANN MERRITT DATE OF : 1950 DATE OF ADMISSION: 11/20/2019 19:16 (CDT) PHONE: AGE: 69 N# [id number] GENDER: Female ENCOUNTER PHYSICIAN: Dr. Omar Barone M.D. ADMISSION DIAGNOSIS: - Stroke 01 - Right Body (Left Brain) (01.2) EATING: EATING - STEP 1: Does the patient complete the activity by him/herself with no assistance (physical, verbal/nonverbal cueing, setup/clean-up)? No. EATING - STEP 2: Does the patient need only setup/clean-up assistance from one helper? Yes. 1. [id number] ADMISSION PERFORMANCE: Setup or clean-up assistance CODE: 05 ORAL HYGIENE: ORAL HYGIENE - STEP 1: Does the patient complete the activity by him/herself with no assistance (physical, verbal/nonverbal cueing, setup/clean-up)? No. ORAL HYGIENE - STEP 2: Does the patient need only setup/clean-up assistance from one helper? Yes. 1. [id number] ADMISSION PERFORMANCE: Setup or clean-up assistance CODE: 05 TOILETING HYGIENE: TOILETING HYGIENE - STEP 1: Does the patient complete the activity by him/herself with no assistance (physical, verbal/nonverbal cueing, setup/clean-up)? No. TOILETING HYGIENE - STEP 2: Does the patient need only setup/clean-up assistance from one helper? Yes. 1. [id number] ADMISSION PERFORMANCE: Setup or clean-up assistance CODE: 05 BATHING: Not assessed/no information CODE: - DRESSING - UPPER BODY: DRESSING - UPPER BODY - STEP 1: Does the patient complete the activity by him/herself with no assistance (physical, verbal/nonverbal cueing, setup/clean-up)? No. DRESSING - UPPER BODY - STEP 2: Does the patient need only setup/clean-up assistance from one helper? Yes. 1. [id number] ADMISSION PERFORMANCE: Setup or clean-up assistance CODE: 05 DRESSING - LOWER BODY: DRESSING - LOWER BODY - STEP 1: Does the patient complete the activity by him/herself with no assistance (physical, verbal/nonverbal cueing, setup/clean-up)? No. DRESSING - LOWER BODY - STEP 2: Does the patient need only setup/clean-up assistance from one helper? Yes. 1. [id number] ADMISSION PERFORMANCE: Setup or clean-up assistance CODE: 05 PUTTING ON/TAKING OFF FOOTWEAR: FOOTWEAR - STEP 1: Does the patient complete the activity by him/herself with no assistance (physical, verbal/nonverbal cueing, setup/clean-up)? No. FOOTWEAR - STEP 2: Does the patient need only setup/clean-up assistance from one helper? Yes. 1. [id number] ADMISSION PERFORMANCE: Setup or clean-up assistance CODE: 05 ROLL LEFT AND RIGHT: ROLL LEFT AND RIGHT - STEP 1: Does the patient complete the activity by him/herself with no assistance (physical, verbal/nonverbal cueing, setup/clean-up)? Yes. 1. [id number] ADMISSION PERFORMANCE: Independent CODE: 06 SIT TO LYING: SIT TO LYING - STEP 1: Does the patient complete the activity by him/herself with no assistance (physical, verbal/nonverbal cueing, setup/clean-up)? Yes. 1. [id number] ADMISSION PERFORMANCE: Independent CODE: 06 LYING TO SITTING: LYING TO SITTING ON SIDE OF BED - STEP 1: Does the patient complete the activity by him/herself with no assistance (physical, verbal/nonverbal cueing, setup/clean-up)? Yes. 1. [id number] ADMISSION PERFORMANCE: Independent CODE: 06 SIT TO STAND: SIT TO STAND - STEP 1: Does the patient complete the activity by him/herself with no assistance (physical, verbal/nonverbal cueing, setup/clean-up)? Yes. 1. [id number] ADMISSION PERFORMANCE: Independent CODE: 06 TRANSFERS: BED, CHAIR: CHAIR/[id number] TRANSFER - STEP 1: Does the patient complete the activity by him/herself with no assistance (physical, verbal/nonverbal cueing, setup/clean-up)? Yes. 1. [id number] ADMISSION PERFORMANCE: Independent CODE: 06 TRANSFER TOILET: TOILET TRANSFER - STEP 1: Does the patient complete the activity by him/herself with no assistance (physical, verbal/nonverbal cueing, setup/clean-up)? No. TOILET TRANSFER - STEP 2: Does the patient need only setup/clean-up assistance from one helper? Yes. 1. [id number] ADMISSION PERFORMANCE: Setup or clean-up assistance CODE: 05 TRANSFERS: CAR: Not assessed/no information CODE: - WALK 10 FEET: Not assessed/no information CODE: - 1 STEP (CURB): Not assessed/no information CODE: - PICKING UP OBJECT: Not assessed/no information CODE: - DOES THE PATIENT USE A WHEELCHAIR/SCOOTER? Q1. DOES THE PATIENT USE A WHEELCHAIR/SCOOTER?: No CODE: 0 INDICATE THE TYPE OF WHEELCHAIR/SCOOTER USED: CODE: EXPR INDICATE THE TYPE OF WHEELCHAIR/SCOOTER USED: CODE: EXPR BLADDER AND BOWEL: H350. BLADDER CONTINENCE (3-DAY ASSESSMENT PERIOD): Always continent (no documented incontinence) CODE: 0 H400. BOWEL CONTINENCE (3-DAY ASSESSMENT PERIOD): Always continent CODE: 0 SIGNATURE PANEL: The following modified sections: 1. [id number] Admission Performance, 1. [id number] Admission Performance, 1. [id number] Admission Performance, 1. [id number] Admission Performance, 1. [id number] Admission Performance, 1. [id number] Admission Performance, 1. [id number] Admission Performance, 1. [id number] Admission Performance , 1. [id number] Admission Performance, 1. [id number] Admission Performance, 1. [id number] Admission Performanc e, 1. [id number] Admission Performance, Q1. Does the patient use a wheelchair/scooter?, H350. Bladder Co ntinence (3-day assessment period), H400. Bowel Continence (3-day assessment period) were [electronic ally] signed by Kathleen Goodman C.N.A. on MonDec 04 2019 15:03:43 GMT-0500 (Central Daylight Time)
[2019-12-04] MEDS: ENOXAPARIN 30 MG/0.3 ML SQ SCH (16:27)
--- NOTE | 2019-12-04 18:20 | R.PN ---
ENCOUNTER DATE AND TIME: 12/04/2019 18:16 (CDT) NAME JULIANN MERRITT DATE OF : 1950 DATE OF ADMISSION: 11/20/2019 19:16 (CDT) Stroke with aphasia and incoordination. SUBJECTIVE: Pt denied any Shortness of Breath. Pt denied any depression. CBC with differential is normal. Prealumin 18.4, K 4.1, prealbumin 18.4. Ambulated 575' without an assistive device with independence. Up and down 15 steps with standby dudley tance using bilateral handrails. SBP is elevated significantly. Increased Lisinopril to 10 mg twice daily. May add a calcium channel b locker such as Norvasc 5 mg daily. Balance activities done with supervision. VITAL SIGNS Temperature: 98.6 F SBP/DBP: 140/64 Pulse: 65 Resp: 16 MEDICATION ALLERGIES: CODEINE ENVIRONMENTAL ALLERGIES: None Known - Substance Allergies None Known - Other Allergies None Known NURSING: - Shower allowing shower - Bladder care per protocol - Skin care per protocol PRECAUTIONS: - Weight Bearing Precaution WBAT both LE ACTIVITIES OOB only with supervision THERAPIES: - Occupational Therapy Cognitive Retraining. Visual Perceptual Training. - Dietary and Nutrition Adequate Nutrition. Nutritional Education. Nutritional Supplements. - Speech Therapy Cognitive Training. Expressive Language Skills. Memory Strategies. Receptive Language Skills. Speech Intelligibility Training. PHYSICAL EXAM - Gen Alert and awake Lying in bed No apparent distress Oriented to: person, time, and place - Skin No skin breakdown. Normacephalic - Eyes No abnormalities - ENMT No abnormalities - Neck No abnormalities - CVS RRR - Chest No abnormalities - Resp Clear to auscultation - Abd Soft - GI Non distended Deferred - No abnormalities - Ext No significant edema - MSK 4+/5 weakness in left upper and lower extremity - Neuro 4/5 strength right upper and lower extremities. - Psych No abnormalities ASSESSMENT: Patient has realistic goal of being discharged at assistance level 6-Елена to reside at Home with [facility] er. MDM/PLAN: - Physical Therapy Gait dysfunction - to improve, our physical therapists will perform initial evaluation of pt's statu s upon admission and devise an individualized program for Gait Training, and Wheel Chair mobility Inability to transfer - to improve, our physical therapists will perform initial evaluation of pt's status upon admission and devise an individualized program for Bed mobility Need for home safety evaluation - to improve, our physical therapists will perform initial evaluatio n of pt's status upon admission and devise an individualized program for Home Evaluation Need in caregiver upon discharge - to improve, our physical therapists will perform initial evaluati on of pt's status upon admission and devise an individualized program for Caregiver Training Edema - to improve, our physical therapists will perform initial evaluation of pt's status upon admi ssion and devise an individualized program for Elevation Training, and Lymphedema Therapy New precaution - to improve, our physical therapists will perform initial evaluation of pt's status upon admission and devise an individualized program for Patient precaution education Poor balance - to improve, our physical therapists will perform initial evaluation of pt's status up on admission and devise an individualized program for Balance Training Weakness - to improve, our physical therapists will perform initial evaluation of pt's status upon a dmission and devise an individualized program for Aquatic Therapy, Neuromuscular Reeducation, and Str engthening Achieving independence - to improve, our physical therapists will perform initial evaluation of pt's status upon admission and devise an individualized program for Community Reintegration Activities - Occupational Therapy ADL deficits - to improve, our occupation therapists will perform initial evaluation of pt's status upon admission and devise an individualized program for Bathing, Bed mobility, Community Reintegratio n, Cooking, Dressing, Eating, Fine Motor Skills, Grooming, Homemaking, Kitchen Mobility, Laundry, Pat ient Education, Safety Awareness, Splinting - Positioning, Transfers(Toilet, Tub, Shower), and Wheel Chair Management Cognitive deficits - to improve, our occupation therapists will perform initial evaluation of pt's s tatus upon admission and devise an individualized program for Cognition - orientation Need for child care associate - to improve, our occupation therapists will perform initial evaluation of pt's status upon admission and devise an individualized program for Caregiver Training Weakness - to improve, our occupation therapists will perform initial evaluation of pt's status upon admission and devise an individualized program for Aquatic Therapy, Balance, Endurance, UE ROM, and UE strengthening - Other See attached MAR (Medication Administration Record) - Diet Type Continue Regular - Diet - Liquid Texture Continue Regular - Tube Feed Continue N/A - Bladder care per protocol - Weight Bearing Precaution WBAT both LE - Skin care per protocol - Diet - Solid Texture Continue Regular - Shower allowing shower for Dementia, TBI, Stroke, or others FUNCTIONAL STATUS: UPDATED AT WEEKLY TEAM CONFERENCE - Walking Same score based on distance walked: 1(<=50ft) FUNCTIONAL STATUS: - Self-Care A. Eating Ind B. Grooming Ind C. Bathing Nhi D. Dressing - Upper sup E. Dressing - Lower Nhi F. Toileting sup - Sphincter Control G. Bladder control H. Bowel control - Transfers Control I. Bed/Chair/Wheelchair Nhi J. Toilet Nhi K. Tub/Shower Nhi - Locomotion L. Walk/Wheelchair (B) sup M. Stairs modA - Communication N. Comprehension (B) Nhi O. Expression (B) sup - Social Cognition P. Social Interaction Елена Q. Problem Solving sup R. Memory sup - Endurance Good - Balance Good - Safety Awareness Good QI SCORES: - Self-Care A. Eating 05-Setup or clean-up assistance B. Oral hygiene 05-Setup or clean-up assistance C. Toileting hygiene 04-Supervision or touching assistance E. Shower/bathe self 03-Partial/moderate assistance F. Upper body dressing 05-Setup or clean-up assistance G. Lower body dressing 03-Partial/moderate assistance H. Putting on/taking off footwear 03-Partial/moderate assistance - Mobility A. Roll left and right 04-Supervision or touching assistance B. Sit to lying 03-Partial/moderate assistance C. Lying to sitting on side of bed 03-Partial/moderate assistance D. Sit to stand 03-Partial/moderate assistance E. Chair/[id number] transfer 03-Partial/moderate assistance F. Toilet transfer 03-Partial/moderate assistance G. Car transfer 88-Not attempted due to medical condition or safety concerns I. Walk 10 feet 04-Supervision or touching assistance J. Walk 50 feet with two turns 04-Supervision or touching assistance K. Walk 150 feet 88-Not attempted due to medical condition or safety concerns L. Walking 10 feet on uneven surfaces 88-Not attempted due to medical condition or safety concerns M. 1 step (curb) 88-Not attempted due to medical condition or safety concerns N. 4 steps 88-Not attempted due to medical condition or safety concerns O. 12 steps 88-Not attempted due to medical condition or safety concerns P. Picking up object 88-Not attempted due to medical condition or safety concerns - Bladder and Bowel Bladder continence 0-Always continent Bowel continence 0-Always continent - Endurance Poor - Balance Poor - Safety Awareness Poor CURRENT FUNC. DEFICITS: Self-Care, Mobility, Endurance, Balance, and Safety Awareness SIGNATURE PANEL: (CDT)
[2019-12-04] MEDS: ATORVASTATIN 80 MG TAB PO SCH (20:00)
[2019-12-04] MEDS: MELATONIN 3 MG TABLET PO PRN (20:00)
[2019-12-04] MEDS: TRAZODONE 50 MG TABLET PO PRN (20:00)
[2019-12-05 06:09] LABS: Absolute Lymphocytes (CBC) 1.8 K/uL (0.7-4.9); Basophils % 1.1 % (0-1.3); Hematocrit 35.5 % (36.0-45.0); Lymphocytes % 30.6 % (15.3-44.8); MPV 10.1 fL (7.6-11.3); RBC Red Blood Cell Count 3.98 M/uL (3.86-4.86)
[2019-12-05 06:21] LABS: Albumin 3.1 g/dL (3.4-5.0); BUN Blood Urea Nitrogen 12 mg/dL (7-18); Bicarbonate 24 mmol/L (21-32); Glucose Level 95 mg/dL (74-106); Prealbumin 21.7 mg/dL (20-40); Sodium Level 146 mmol/L (136-145)
[2019-12-05 07:14] VITALS: BP 170/82; TEMP 98.3
[2019-12-05] MEDS: THIAMINE HCL 100 MG TABLET PO SCH (07:22)
[2019-12-05] MEDS: VITAMIN D 1000 UNIT TAB PO SCH (07:22)
[2019-12-05] MEDS: MEGESTROL 40 MG TAB PO SCH (07:23)
[2019-12-05] MEDS: ASPIRIN 81 MG CHEWABLE TABLET PO SCH (07:23)
[2019-12-05] MEDS: FLUOXETINE 20 MG CAP PO SCH (07:23)
[2019-12-05] MEDS: lisinopriL 5 MG TAB PO SCH (07:23)
[2019-12-05] MEDS: CLOPIDOGREL 75 MG TABLET PO SCH (07:23)
[2019-12-05] MEDS: CYANOCOBALAMIN 1,000 MCG TAB PO SCH (07:23)
[2019-12-05] MEDS: POTASSIUM CL SA 10 MEQ TAB PO SCH (07:24)
--- NOTE | 2019-12-05 11:51 | FAST ---
SHIFT START DATE/TIME: 12/05/2019 07:00 (CDT) SHIFT END DATE/TIME: 12/05/2019 19:00 (CDT) NAME JULIANN MERRITT DATE OF : 1950 DATE OF ADMISSION: 11/20/2019 19:16 (CDT) PHONE: AGE: 69 N# [id number] GENDER: Female ENCOUNTER PHYSICIAN: Dr. Omar Barone M.D. ADMISSION DIAGNOSIS: - Stroke 01 - Right Body (Left Brain) (01.2) EATING: EATING - STEP 1: Does the patient complete the activity by him/herself with no assistance (physical, verbal/nonverbal cueing, setup/clean-up)? No. EATING - STEP 2: Does the patient need only setup/clean-up assistance from one helper? Yes. 1. [id number] ADMISSION PERFORMANCE: Setup or clean-up assistance CODE: 05 ORAL HYGIENE: ORAL HYGIENE - STEP 1: Does the patient complete the activity by him/herself with no assistance (physical, verbal/nonverbal cueing, setup/clean-up)? Yes. 1. [id number] ADMISSION PERFORMANCE: Independent CODE: 06 TOILETING HYGIENE: TOILETING HYGIENE - STEP 1: Does the patient complete the activity by him/herself with no assistance (physical, verbal/nonverbal cueing, setup/clean-up)? No. TOILETING HYGIENE - STEP 2: Does the patient need only setup/clean-up assistance from one helper? Yes. 1. [id number] ADMISSION PERFORMANCE: Setup or clean-up assistance CODE: 05 BATHING: Not assessed/no information CODE: - DRESSING - UPPER BODY: DRESSING - UPPER BODY - STEP 1: Does the patient complete the activity by him/herself with no assistance (physical, verbal/nonverbal cueing, setup/clean-up)? Yes. 1. [id number] ADMISSION PERFORMANCE: Independent CODE: 06 DRESSING - LOWER BODY: DRESSING - LOWER BODY - STEP 1: Does the patient complete the activity by him/herself with no assistance (physical, verbal/nonverbal cueing, setup/clean-up)? Yes. 1. [id number] ADMISSION PERFORMANCE: Independent CODE: 06 PUTTING ON/TAKING OFF FOOTWEAR: FOOTWEAR - STEP 1: Does the patient complete the activity by him/herself with no assistance (physical, verbal/nonverbal cueing, setup/clean-up)? Yes. 1. [id number] ADMISSION PERFORMANCE: Independent CODE: 06 DOES THE PATIENT USE A WHEELCHAIR/SCOOTER? CODE: EXPR INDICATE THE TYPE OF WHEELCHAIR/SCOOTER USED: CODE: EXPR INDICATE THE TYPE OF WHEELCHAIR/SCOOTER USED: CODE: EXPR BLADDER AND BOWEL: H350. BLADDER CONTINENCE (3-DAY ASSESSMENT PERIOD): Always continent (no documented incontinence) CODE: 0 H400. BOWEL CONTINENCE (3-DAY ASSESSMENT PERIOD): Always continent CODE: 0 SIGNATURE PANEL: The following modified sections: 1. [id number] Admission Performance, 1. [id number] Admission Performance, 1. [id number] Admission Performance, 1. BS5309s Admission Performance, 1. [id number] Admission Performance, 1. [id number] Admission Performance, H350. Bladder Continence (3-day assessment period), H400. Bowel Co ntinence (3-day assessment period) were [electronically] signed by Moris NicholsN.Haily on MonDec 05 2019 11:50:11 T-0500 (Central Daylight Time)
== END 2019-12-05 11:05 | disposition home health service (06) | DRG 57 ==
LOC: 5TH 11-20 19:16
PROVIDERS: ADMIT Psychiatry & Neurology Neurology with Special Qualifications in Child Neurology; ATTEND Psychiatry & Neurology Neurology with Special Qualifications in Child Neurology
DX: I69.351 Hemiplegia and hemiparesis following cerebral infarction affecting right dominant side (principal); I69.320 Aphasia following cerebral infarction; I10 Essential (primary) hypertension; Z90.710 Acquired absence of both cervix and uterus; Z90.49 Acquired absence of other specified parts of digestive tract; Z88.5 Allergy status to narcotic agent
CPT/HCPCS: 36415; 80048; 81001; 82040; 83735; 84134; 85025; 87086; 87088; 92523; 97110; 97112; 97116; 97127; 97161; 97165; 97530; J1650

== ENCOUNTER 2023-10-03 11:46 | Inpatient (IN) | payer OTHER ==
[2023-10-03] MEDS ORDERED: cloNIDine HCL 0.1 MG TAB PO PRN (19:35)
[2023-10-03] MEDS: carvediloL 25 MG TAB PO SCH (20:16)
[2023-10-03] MEDS: APIXABAN 5 MG TABLET PO SCH (20:16)
[2023-10-03] MEDS: TRAZODONE 50 MG TABLET PO SCH (20:16)
[2023-10-03] MEDS: ATORVASTATIN 40 MG TAB PO SCH (20:16)
[2023-10-03] MEDS: LOSARTAN POTASSIUM 50 MG TABLET PO SCH (20:16)
[2023-10-04 00:49] VITALS: BMI 22.6
[2023-10-04 00:56] LABS: Specific Gravity 1.019 (1.005-1.030); Sqamous Epithelial <5 /HPF (None Seen); Urine Bacteria <20 /HPF (<20); Urine Bilirubin NEGATIVE (Negative); Urine Blood Negative (Negative); Urine Clarity Extremely Turbid (Clear); Urine Color Yellow (Yellow); Urine Crystals Unidentified Few /HPF (None Seen); Urine Culture Reflex Order NOT NEEDED; Urine Glucose NEGATIVE (Negative); Urine Ketones NEGATIVE (Negative); Urine Micro Reflex YN NO BILL MICROSCOPIC; Urine Mucus Slight /HPF (None Seen); Urine Nitrite 2+ (Negative); Urine Protein NEGATIVE (Negative); Urine RBC <5 /HPF (None Seen); Urine Urobilinogen Normal (Normal); Urine WBC <5 /HPF (<5); Urine Yeast (Budding) Trace /HPF (None Seen); Urine pH 5.5 (5.0-7.0)
[2023-10-04 03:38] LABS: Absolute Lymphocytes (CBC) 0.9 K/uL (0.7-4.9); Absolute Monocytes 0.3 K/uL (0.1-1.3); Absolute Neutrophil 3.7 K/uL (1.8-8.0); Basophils % 0.8 % (0-1.3); Eosinophils % 0.9 % (0-4.4); Hematocrit 31.6 % (36.0-45.0); Hemoglobin 11.1 g/dL (12.0-15.0); Lymphocytes % 18.1 % (15.3-44.8); MCH 31.3 pg (27.0-35.0); MCHC 35.3 g/dL (32.0-36.0); MCV 88.7 fL (80-100); MPV 8.4 fL (7.6-11.3); Monocytes % 6.7 % (3.3-12.3); Neutrophils % 73.5 % (41.7-73.7); Nucleated Red Blood Cells % 0.1 % (0-0); Platelets 177 thou/uL (152-406); RBC Red Blood Cell Count 3.56 M/uL (3.86-4.86)
[2023-10-04 04:00] LABS: Albumin 2.7 g/dL (3.4-5.0); Anion Gap 8.4 mEq/L (5.0-15.0); Magnesium 1.9 mg/dL (1.6-2.4); Potassium 3.4 mEq/L (3.5-5.1); Prealbumin 12.7 mg/dL (20-40)
[2023-10-04] MEDS: PANTOPRAZOLE 40MG TABLET PO SCH (06:52)
[2023-10-04] MEDS: FUROSEMIDE 20 MG TABLET PO SCH (06:53)
[2023-10-04] MEDS ORDERED: LOSARTAN POTASSIUM 50 MG TABLET PO SCH (08:00)
[2023-10-04] MEDS: PSYLLIUM 1 PKT PO SCH (08:00)
[2023-10-04] MEDS: CRANBERRY FRUIT EXTRACT 200 MG CAP PO SCH (08:02)
[2023-10-04] MEDS: VITAMIN D 1000 UNIT TAB PO SCH (08:02)
[2023-10-04] MEDS: PARoxetine HCL 10 MG TAB PO SCH (08:03)
[2023-10-04] MEDS: LOPERAMIDE HCL 2 MG CAPSULE PO PRN (10:56)
[2023-10-04] MEDS: MAGNESIUM OXIDE 400 MG TAB PO SCH (10:59)
[2023-10-05 04:37] LABS: Anion Gap 7.3 mEq/L (5.0-15.0); Potassium 3.3 mEq/L (3.5-5.1)
--- NOTE | 2023-10-05 05:27 | HP ---
Date of Admission: 10/03/2023 Time Of Service: 1 p.m. Chief Complaint: "I had a stroke and my left side is weak." History Of Present Illness: Ms. Villanueva is a 73-year-old patient with hypertension, atrial fibrillati on, prior stroke in 2019 with no deficits after aggressive inpatient rehabilitation, who developed st roke symptoms on the 27 of September of this year. She went to sleep in good health without deficits an d woke up around 8 in the morning and tried to get out of bed, felt weak in the left side and slid to the floor. She called her daughter, but did not have an answer. She remained on the floor and was eventually found on the floor by her daughter. When the Emergency Medical Services arrived, systolic blood pressure in 140s, blood glucose 130s. She was taken to [facility] in [facility]. Her NIH Stroke Scale was 5. She had a CT scan of the head showing hypodensities in the right frontal region and right internal capsule. CT angiogram studies showed no large vessel occlus ion. Since the time of onset, could not be defined more precisely. TNK was not given. Intra-arteri al thrombolysis also not given because of no large vessel occlusion identified. Suspected atrial fib rillation is the cause of this stroke. It is noted that the patient did apparently fall forward and had superficial trauma to the face at the time of fall. She was feeling lightheaded with loss of bal ance. She was seen by the Neurology Service, treated with aspirin 81 mg daily, Plavix 75 mg daily, a torvastatin 80 mg daily. Her blood pressures were kept below 220 systolic. A brain MRI did show an acute infarct in the external capsule on the right and the right posterior lentiform nucleus abutting the posterior limb of the right internal capsule extending superiorly into the right marquis radiata. She did have evidence of atherosclerotic disease in the distal right MCA which was suspected to be a new stroke. She was treated with Eliquis 5 mg twice daily for her atrial fibrillation to reduce st roke risk. She did have significant paresis in the left nondominant side. She was evaluated by Neur ology. Additional workup included transthoracic echocardiogram showing ejection fraction 55% and atr ia without a clot. Hemoglobin A1c of 5.4%, LDL at 49. She also had hypokalemia. In addition to lef t-sided deficits, she had dysarthria and required evaluation by Speech Therapy to rule out risk of as piration and to help regain articulation and to evaluate for any cognitive issues to help improve felicita t. She also was found by physical therapies to have significant deficits in terms of her ability to perform activities of daily living, dress upper and lower body, all around moderate assistance, and a mbulate just about 50 feet twice with a rolling walker with minimal assistance. She was fatiguing ve ry quickly. She does take shuffling steps with high tendency to fall. She needed cues to remain ere ct during gait. She does live alone in a ground level apartment in a care home community. Since she is functioning well below her baseline level, it is required that she receive intensive inpatien t rehabilitation with physical, occupational, and speech therapy, have 24 hours, 7 days a week skille d nursing to manage her medical conditions, daily physician evaluation, and Remote Inpatient Coder evaluatio n to plan discharge for home equipment needs and for continuing therapy. Past Medical History: As noted above. Surgical History: Cholecystectomy, hysterectomy. Allergies: CODEINE. Medications: Eliquis 5 mg twice daily, Lipitor 40 mg at bedtime, Coreg 25 mg twice daily, vitamin D 2000 units daily, clonidine 0.1 mg every 4 hours as needed, Lasix 20 mg daily, Imodium 2 mg every 4 h ours as needed, Cozaar 25 mg twice daily, magnesium oxide 400 mg twice daily, clonidine 0.1 mg every 4 hours as needed for systolic blood pressure greater than 170, Lasix 20 mg daily, Imodium 2 mg every 4 hours, Cozaar 25 mg twice daily, magnesium oxide 400 mg twice daily, Protonix 40 mg daily, Paxil 1 0 mg daily, trazodone 100 mg at bedtime. Laboratory Studies: White blood cell count 5.0, hemoglobin 11.1, platelets 177. Sodium 139, potassi um 3.4, chloride 105, carbon dioxide 29, BUN 18, creatinine 0.47, glucose 99, calcium 8.7, magnesium 1.9, albumin 2.7, prealbumin 12.7. Urinalysis shows extreme turbidity, 2+ nitrite, 25 esterase, trac e budding yeast. Cultures are pending. X-ray/imaging Data: On 09/28/2023, brain MRI shows no acute intracranial hemorrhage, age indetermina te focal hypodensity in the right frontal periventricular white matter, possible mild local mass effe ct. Brain MRI on 09/30/2023, acute infarct in the external capsule, posterior right lentiform nucleu s along the posterior limb of the right internal capsule extending superiorly into the right marquis r adiata. There is no mass effect. There were chronic small infarcts in the left greater than right c entrum semiovale, left frontal periventricular white matter. CT scan of the face on 09/28/2023 shows no acute abnormalities. Chest x-ray shows no acute abnormalities. Also left ankle x-ray showed no acute abnormalities. Family History: Noncontributory. Review of Systems: She denies any fevers, chills, nausea, vomiting. No significant abdominal pain. No myalgias. There is mild arthralgias, especially on the left side where she impacted. No excessive swelling or edema , just mild in the extremities. No active psychiatric issues. Denies any genitourinary issues or de rmatological issues. No other positives on systems review. Current Level Of Functioning: Currently, set up assistance for eating, moderate assist for oral hygi zachery, toileting, showering. For upper body dressing, lower body dressing, all moderate assistance. D onning and doffing of footwear, moderate assistance. For rolling left to right and right to left in bed, moderate assistance. Going from sitting to lying and lying to sitting, moderate assistance. Si t-to-stand, moderate assistance. Transfer from bed to chair to toilet, moderate assistance. Ambulat ion, moderate assistance, 15 feet with a rolling walker. Physical Examination: Vital Signs: Blood pressure 150/70, pulse 78, respiratory rate 16, temperature 97.4, and saturation 93%. Weight 120 pounds, height 5 feet 1 inch, BMI 22.7. General: Ms. Villanueva is resting in bed in between therapy sessions. She is in no acute distress. HEENT: She does appear normocephalic, atraumatic. Sclerae anicteric. Oropharynx is pink and moist. Neck: Supple. Chest: Clear. Heart: Irregularly irregular. Abdomen: Soft. Extremities: No significant edema or cyanosis. Rehabilitation And Medical Assessment And Plan: Ms. Villanueva is admitted to the inpatient rehabilitati on unit with impairment category 01 stroke. Her impairment group code 01.1, left body involvement, r ight brain. Her etiologic diagnosis, right MCA ischemic stroke. Comorbidities are atrial fibrillati on, decreased physical functioning, decreased mobility, dysarthria, hypertension, hypokalemia, left-s ided weakness, some minor facial trauma from her fall, left ankle pain from her fall. Plan: She will have physical, occupational, and speech therapy for 3.5 hours, 5 of 7 days. She will continue with Lipitor 40 mg at bedtime for dyslipidemia, Eliquis 5 mg twice daily for stroke and DVT risk reduction, clonidine as needed 0.1 mg for systolic blood pressure greater than 170, Lasix 20 mg daily for fluid management, Cozaar 25 mg twice daily for hypertension, magnesium 400 mg twice daily for muscle spasms, Protonix 40 mg daily for GE reflux, Paxil 10 mg daily for depression, Desyrel 100 mg at night for insomnia. Comorbidities That Are Continuing To Impact Rehabilitation: Her issue of atrial fibrillation which i s significantly increasing her risk of stroke. It is mitigated by continuing with Eliquis dosage. I n addition, she has medication for dyslipidemia. However, given the risk of falling from stroke, she is at significant risk of bleeding, the worse scenario of internal bleeding in the head or internal organs. As a result, fall precautions will be strictly adhered to. She will ambulate with a rolling walker at all times. Gait belt in place. If need be, bed alarm and chair alarm to prevent the hilary ent from inadvertently trying to ambulate and losing her balance. She is at significant risk of worsening if she is not ready to be discharged home and depending on ho w she is doing in terms of recovery, she may have to go to prison if she is not improving at a fast rate. Note, since she does have some family available, it will be strongly recommended when she is discharged that she continue with therapy likely by Home Health. Rehab Specific Plan: Ms. Villanueva will have physical, occupational, and speech therapy for 3.5 hours, 5 of 7 days to improve her ability to transfer from bed to chair to toilet, told to do toileting and showering, to be able to ambulate at a minimum of household distances of 50 feet over 250 feet will b e ideal, to mobilize a wheelchair 250 feet and be able to go up and down 10 steps with modified indep endence. Her evaluation and management by Speech will work on dysarthria, dysphagia, cognitive strat egies to help with safety awareness, planning her motor activities, and medication management along w ith physician followup. Ms. Villanueva has a good understanding of the process of admission to the inpatient rehabilitation [facility] and how she will benefit from physical, occupational, and speech therapy. She will also have ski lled nursing 24 hours a day, daily physician evaluation, and will have a social service evaluation an d management for discharge planning to minimize the risk of readmission and to maximize the home care which may include home health and durable medical equipment. Barriers To Discharge: Currently, she does have issues of fluid management, may require IV Lasix, an d will have chest x-ray following that. We will have blood work looking at kidney function as well. She is again high fall risk and may have to be discharged to skilled instead of home depending on ho w she is doing. Length Of Stay: At least 14 days. Disposition: Home with home health and family as well. Prognosis: Fair. Rehabilitation Goals: 1.Become independent with upper and lower body dressing, toileting, showering, donning and doffing o f clothes. 2.Ambulate independently up to 250 feet with a rolling walker. 3.Propel a wheelchair 250 feet independently. 4.Go up and down 10 steps independently with bilateral handrails. 5.Perform cognitive functioning with independence including medication management, safety awareness, physician evaluation, followup as well. The above goals were reviewed with Ms. Villanueva and she is in agreement. By signing this document, I acknowledge I personally performed a full physical examination on Ms. Schulte all no later than 24 hours after her admission to the inpatient rehabilitation facility and determine d that she is able to tolerate the above course of treatment at an intensive level for a reasonable p eriod of time. A detailed individualized plan of care for her will be completed by hospital day 4 ba sed on the preadmission screen, history and physical, and therapy evaluations. JIMMY/JOHNATHAN Voice ID: [id number]
[2023-10-05] MEDS: POTASSIUM 25 MEQ EFFERV TAB PO ONE (07:25)
[2023-10-05] MEDS ORDERED: PSYLLIUM 1 PKT PO PRN (07:29)
[2023-10-05] MEDS: POTASSIUM CL SA 10 MEQ TAB PO SCH (08:45)
[2023-10-05] MEDS: carvediloL 12.5 MG TAB PO SCH (19:49)
[2023-10-05] MEDS: ENSURE ENLIVE 237 ML CAN PO SCH (19:51)
--- NOTE | 2023-10-06 01:09 | PN ---
Date of Progress Note: 10/05/2023 Time Of Service: 1 p.m. Subjective: Ms. Villanueva is in bed in between therapy sessions. She has no new complaints. She is mar ppy about her therapy so far, recovering strength on the left side, where she has the impact of her s troke from the right MCA distribution. No new complaints. Objective: No fevers, chills, nausea, or vomiting. No significant myalgias, arthralgias, rash, head ache, weight change. Physical Examination: Vital Signs: Blood pressure ranged from 101 to 171 over 54 to 72, pulse ranged from 65 to 72, respir atory rate 16 to 18, temperature 97.9, oxygen saturation 93% on room air. Weight 120 pounds, height 5 feet 1 inch, BMI 22.7. General: Ms. Villanueva is lying in bed. No significant cranial nerve deficits despite location of her stroke. She has mild left upper and lower extremity weakness, numbness, and incoordination. Lungs: Clear to auscultation. Heart: Regular. Abdomen: Soft. Extremities: No cyanosis, clubbing, or edema. Laboratory Studies: White blood cell count 5.0, hemoglobin 11.1, platelets 177. Sodium 138, potassi um low at 3.3, which is being replaced, chloride 104, carbon dioxide 30, BUN 15, creatinine 0.5, gluc ose 106, calcium 8.6, prealbumin low at 12.7, albumin low at 2.7. Urinalysis, extreme turbidity, 2+ nitrite, 25 esterase, trace budding yeast, and cultures did grow greater than 100,000 colony-forming units with mixed yvan and 4+ gram-negative rods and sensitivities are pending. X-ray/imaging: None. Medications: Eliquis 5 mg twice daily, Lipitor 40 mg at bedtime, Coreg 12.5 mg twice daily, vitamin D 2000 units daily, Catapres 0.1 mg for systolic blood pressure greater than 170 every 4 hours, Lasix 10 mg daily, Cozaar 25 mg twice daily, Imodium 2 mg every 4 hours as needed, magnesium oxide 400 mg twice daily, Ensure Enlive 237 mg twice daily, Protonix 40 mg daily, Paxil 10 mg daily, potassium 10 mEq daily, Metamucil 1 packet daily as needed for constipation, and Desyrel 100 mg at bedtime. Progress Made With Physical And Occupational Therapy: Today, she completed bed mobility with contact guard assistance. Jkx-qx-[id number] transfers also done with contact guard to minimum assistance. Compl eted stair management 5 steps with minimum assistance, self propel a wheelchair 85 feet with contact guard assistance. With occupational therapy, standby assistance for toilet hygiene twice, supine-to- sit transfers done and room to toilet transfers with a rolling walker with contact guard assistance. With speech, long-term goals to improve memory and executive functioning skills from moderate assist ance to minimum assistance to go back home and live alone. Ms. Villanueva is making great progress, although just a few days in rehabilitation unit with physical, o ccupational, and speech therapy. Assessment: Ms. Villanueva is a 73-year-old patient with hypertension, atrial fibrillation, prior stroke with good recovery, GE reflux, anemia, malnutrition, hypokalemia, fall risk, minor facial trauma, le ft ankle pain from a fall. Plan: She will continue physical, occupational, and speech therapy for 3.5 hours, 5 of 7 days. We w ill continue with comorbid condition medication management, which are listed above including hyperten niraj, depression, insomnia, malnutrition, anemia, GE reflux, for fluid management, for mild CHF. Aga in, continue physical, occupational, and speech therapy for 3.5 hours, 5 of 7 days. Comorbidities That Are Impacting Rehabilitation: She has atrial fibrillation which is a high risk of cardioembolic stroke and is on Eliquis, puts her at risk for bleeding and fall precautions. Therefo re, will be adhered to at all times with a gait belt and rolling walker for all transfers and mobilization. However, she has issues of balance given her left -sided neurological deficits. LB/MODL Voice ID: [id number] Report ID: [id number]
[2023-10-06] MEDS: FUROSEMIDE 20 MG TABLET PO SCH (07:16)
[2023-10-06] MEDS: POTASSIUM CL SA 10 MEQ TAB PO SCH (07:17)
--- NOTE | 2023-10-06 13:13 | P.RH.PN ---
Estimated Length of Stay: 13 Expected Discharge Date: 10/14/23 Discharge Disposition Plan: Home Family Support: Yes [facility] Goal: Mobility, Transfers, Self Care Vital Signs: Last Vital Signs Temp 97.3 F 10/06/23 06:48 Pulse 89 10/06/23 07:17 Resp 16 10/06/23 06:48 BP 147/72 H 10/06/23 07:17 Pulse Ox 96 10/06/23 06:48 Laboratory: Laboratory Last Values WBC 5.00 thou/uL (4.3-10.9) 10/04/23 03:09 RBC 3.56 M/uL (3.86-4.86) L 10/04/23 03:09 Hgb 11.1 g/dL (12.0-15.0) L 10/04/23 03:09 Hct 31.6 % (36.0-45.0) L 10/04/23 03:09 MCV 88.7 fL (80-100) 10/04/23 03:09 MCH 31.3 pg (27.0-35.0) 10/04/23 03:09 MCHC 35.3 g/dL (32.0-36.0) 10/04/23 03:09 RDW 14.0 % (12.1-15.2) 10/04/23 03:09 Plt Count 177 thou/uL (152-406) 10/04/23 03:09 MPV 8.4 fL (7.6-11.3) 10/04/23 03:09 Neutrophils % 73.5 % (41.7-73.7) 10/04/23 03:09 Lymphocytes % 18.1 % (15.3-44.8) 10/04/23 03:09 Monocytes % 6.7 % (3.3-12.3) 10/04/23 03:09 Eosinophils % 0.9 % (0-4.4) 10/04/23 03:09 Basophils % 0.8 % (0-1.3) 10/04/23 03:09 Absolute Neutrophils 3.7 K/uL (1.8-8.0) 10/04/23 03:09 Absolute Lymphocytes 0.9 K/uL (0.7-4.9) 10/04/23 03:09 Absolute Monocytes 0.3 K/uL (0.1-1.3) 10/04/23 03:09 Absolute Eosinophils 0.0 K/uL (0-0.5) 10/04/23 03:09 Absolute Basophils 0.0 K/uL (0-0.5) 10/04/23 03:09 Sodium 138 mEq/L (136-145) 10/06/23 03:11 Potassium 4.0 mEq/L (3.5-5.1) D 10/06/23 03:11 Chloride 105 mEq/L (98-107) 10/06/23 03:11 Carbon Dioxide 32 mEq/L (21-32) 10/06/23 03:11 Anion Gap 5.0 mEq/L (5.0-15.0) 10/06/23 03:11 BUN 16 mg/dL (7-18) 10/06/23 03:11 Creatinine 0.56 mg/dL (0.55-1.02) 10/06/23 03:11 Est GFR (CKD-EPI) 96 ml/min (=/>90) 10/06/23 03:11 Glucose 120 mg/dL (74-106) H 10/06/23 03:11 Calcium 8.7 mg/dL (8.5-10.1) 10/06/23 03:11 Magnesium 1.9 mg/dL (1.6-2.4) 10/04/23 03:09 Albumin 2.7 g/dL (3.4-5.0) L 10/04/23 03:09 Prealbumin 12.7 mg/dL (20-40) L 10/04/23 03:09 Urine Color Yellow (Yellow) 10/04/23 00:12 Urine Clarity Extremely turbid (Clear) H 10/04/23 00:12 Urine pH 5.5 (5.0-7.0) 10/04/23 00:12 Ur Specific [place] 1.019 (1.005-1.030) 10/04/23 00:12 Glucose (UA)(Auto) Negative (Negative) 10/04/23 00:12 Urine Ketones Negative (Negative) 10/04/23 00:12 Urine Blood Negative (Negative) 10/04/23 00:12 Urine Nitrite 2+ (Negative) H 10/04/23 00:12 Urine Bilirubin Negative (Negative) 10/04/23 00:12 Urine Urobilinogen Normal (Normal) 10/04/23 00:12 Ur Leukocyte Esterase 25 [place]/uL (Negative) H 10/04/23 00:12 Urine RBC <5 /HPF (None Seen) 10/04/23 00:12 Urine WBC <5 /HPF (<5) 10/04/23 00:12 Ur Squamous Epith Cells <5 /HPF (None Seen) 10/04/23 00:12 U Non-Squamous Epi Cells <5 /HPF (None Seen) 10/04/23 00:12 Unidentified Crystals Few /HPF (None Seen) 10/04/23 00:12 Urine Bacteria <20 /HPF (<20) 10/04/23 00:12 Urine Mucus Slight /HPF (None Seen) 10/04/23 00:12 Urine Yeast (Budding) Trace /HPF (None Seen) H 10/04/23 00:12 Urine Culture Reflexed Not needed 10/04/23 00:12 Urine Total Protein Negative (Negative) 10/04/23 00:12 Weight: 120 lb Wound Present: No Negative Pressure Wound Therapy Present: No Physician Update: Low potassium, now replaced. Mild improvement in left sided weakness. BIMS 13, SLUMS 19, Mild to moderate cognitive impairment. Little insite into her memory problems. Poor oral intake. SBA for bed mobility, RW 85' with CGA, toileting SBA, also with lower and upper body dressing. Needs bowel and bladder training. Summary: Patient's care plan and mcc goals have been reviewed and revised as necessary. Please see the Rehabilitation Signature page for all necessary signatures.
--- NOTE | 2023-10-09 09:54 | P.CNS ---
Date of Consult: 10/09/23 Chief Complaint: Painful toenails Allergies codeine Allergy (Verified 10/03/23 16:17) Itching Home Medications: Cholecalciferol (Vitamin D3) [Vitamin D 1000 Iu Tab*] 2,000 unit PO DAILY tab 12/04/19 Apixaban [Eliquis] 5 mg PO BID 10/03/23 Atorvastatin Calcium [Lipitor] 40 mg PO BEDTIME 10/03/23 Furosemide [Lasix] 20 mg PO DAILY 10/03/23 Losartan Potassium [Cozaar] 25 mg PO DAILY 10/03/23 PARoxetine HCL [Paxil] 10 mg PO DAILY 10/03/23 Pantoprazole [Protonix Tab] 40 mg PO DAILY 10/03/23 Psyllium Husk (with Sugar) [Metamucil Packet] 3.4 gm PO DAILY 10/03/23 Trazodone [Desyrel*] 100 mg PO BEDTIME PRN 10/03/23 carvediloL [Coreg] 25 mg PO BID 10/03/23 - Past Medical/Surgical History Diabetic: No -: HTN -: AFIB -: R shoulder sx -: L hand sx -: R hand sx -: Melba - Family History Mother Medical History: Heart disease Sister Medical History: Heart disease - Social History Alcohol use: No CD- Drugs: No Caffeine use: No Place of Residence: Home Review of Systems 10-point ROS is otherwise unremarkable Physical Examination Temp Pulse Resp BP Pulse Ox 97.8 F 70 16 129/72 93 10/09/23 07:34 10/09/23 07:34 10/09/23 07:34 10/09/23 07:34 10/09/23 07:34 General: Alert, In no apparent distress, Oriented x3 Cardiovascular: No edema, Normal pulses Capillary refill: <2 Seconds Musculoskeletal: No clubbing, No swelling, No contractures, No erythema, No tenderness, No warmth Integumentary: No rashes, No breakdown, No significant lesion, No tenderness /swelling, No erythema, No warmth, No cyanosis, Other (Thickened hypertrophic nails with subungual debris bilateral hallux, elongated nails 2-5 bilateral) Neurological: Sensation intact - Problems (1) detention (current) use of anticoagulants Current Visit: Yes Status: Acute (2) Tinea unguium Current Visit: Yes Status: Acute (3) Onychogryphosis Current Visit: Yes Status: Acute Conclusions/Impression: Mechanical debridement of nails at bedside Physician Review: Patient Assessed, Agree with Above Assessment and Plan
--- NOTE | 2023-10-09 23:53 | PN ---
Date of Progress Note: 10/09/2023 Time Of Service: 1:15 p.m. Subjective: Ms. Villanueva is in the gym relating with the therapist. She is doing very well. Left-yandy ed weakness is improving well, mobilizing. No new complaints. Objective: No fevers, chills, nausea, vomiting. No significant myalgias, arthralgias, rash, headach e, weight change. Physical Examination: Vital Signs: Blood pressure 152/68, pulse 67, respiratory rate 15, temperature 97.6, oxygen saturati on 94%. General: Ms. Villanueva is resting well. Neuro: Left-sided weakness is minimal at this point, mobilizing well. Left leg also improving and n o other findings. Lungs: Good air movement. Abdomen: Soft. Laboratory Studies: No new laboratory studies. X-ray/imaging: No new x-rays or imaging. Consultations: She was seen by Dr. Junior العلي, who did debridement of the nails at bedside. Progress Made With Physical, Occupational, And Speech Therapy: Today with physical therapy, ambulate d 40 feet twice, another 40 feet and 60 feet with a rolling walker with contact guard assistance. Sh leandro was able to go up and down 5 steps with minimum assistance. She mobilized a wheelchair 75 feet and 20 feet with contact guard assistance. She did require supervision for bed mobility and ambulating around the room to the bathroom with the rolling walker and was at standby assistance for that. With speech, she recalled 4 of 4 pictures after 5 minutes without cues. She recalled 3 of 3 unrelated pi ctures after 5 minutes. Ms. Villanueva is making great progress with her speech therapy and good progress as well, although sligh tly slower with physical and occupational therapy. Assessment: Ms. Villanueva is a 73-year-old patient admitted to the rehabilitation unit with a right MCA infarct with left-sided weakness, from which she is recovering very well. She has hypertension, dep ression, insomnia, malnutrition, anemia, GE reflux. Plan: 1.Continue with physical, occupational, and speech therapy for 3.5 hours, 5 of 7 days. 2.Continue Eliquis for DVT prophylaxis. 3.Lipitor for dyslipidemia, Coreg for heart rate control and blood pressure control, clonidine as ne eded 0.1 for systolic blood pressure greater than 170, Lasix 10 mg daily for fluid management, Cozaar added 25 mg twice daily for hypertension, magnesium oxide for muscle spasm, Ensure Enlive for nutrit ion, Protonix for GE reflux, Paxil for depression, trazodone for insomnia. Comorbidities That Are Impacting Rehabilitation: At this point, her comorbidities are stably managed and do not negatively impact rehabilitation. JIMMY/MODL Voice ID: [id number] Report ID: [id number]
--- NOTE | 2023-10-10 21:06 | PN ---
Date of Progress Note: 10/10/2023 Time Of Service: 1:20 p.m. Subjective: Ms. Villanueva is ambulating in the hallway. She is actually recovering excellently from he r right MCA stroke which affected the left side and she has actually recovered with little deficits. Still has some coordination and balance issues as she was ambulated with a walker with gait belt and the physical therapist in tow with a chair behind. Objective: No fevers, chills, nausea, vomiting, myalgias, arthralgias, rash, headache, or weight ashok nge. Physical Examination: Vital Signs: Blood pressure 169/76, pulse 74, respiratory rate of 16, temperature 97.6, oxygen satur ation 94%. She had orthostatics that were negative. General: Ms. Villanueva again is doing very well. Neuro: In terms of strength testing on the left side, she is at least 4/5 proximally and distally, r ight side 5/5. Sensation is intact in the right and left upper and lower extremity. Coordination sl ight subtle finger to nose difficulty on the left, intact on the right side. Laboratory Studies: No new laboratory studies. X-ray/imaging: No new x-rays or imaging. Medications: Medications have been reviewed and are unchanged. She is receiving DVT prophylaxis. S he has fluid management with Lasix. Continue antihypertensive, medication for dyslipidemia, magnesiu m oxide for muscle spasms, Protonix for GE reflux, Paxil for depression, potassium replacement is giv en, and insomnia treated with Desyrel. Progress Made With Physical, Occupational, And Speech Therapy: Today, she ambulated 40 feet, 70 feet , and 60 feet with minimum assistance and a rolling walker. She did go up and down 5 steps twice wit h minimum assistance. Propelled a wheelchair 150 feet and 100 feet with contact guard assistance. W ith occupational therapy, supervision required for bed mobility from edge of bed to wheelchair to a r olling walker, supervision for bathing, grooming, upper body dressing, footwear, contact guard assist ance for lower body dressing. With speech, she is able to recall 4 of 4 unrelated times after 5-esvin te delay with moderate assistance. She was independent for working memory, sequencing, and organizat ion of thinking activities. Ms. Villanueva is making great progress with physical, occupational, and speech therapy. She is working hard to recover from her right MCA stroke with left-sided weakness. Assessment: Ms. Villanueva is a 73-year-old patient with a right MCA stroke and left-sided weakness, fro m which she is recovering very well. She has hypertension, depression, insomnia, malnutrition, anemi a, GE reflux. Plan: 1.Continue with physical, occupational, and speech therapy for 3.5 hours, 5 of 7 days. 2.Continue with current regimen of medications for DVT prophylaxis, hypertension, malnutrition, depr ession, anemia, GE reflux, and for insomnia. Comorbidities That Are Impacting Rehabilitation: She is doing very well. Her comorbidities are stab le and do not negatively impact her rehabilitation. LB/MODL Voice ID: [id number] Report ID: [id number]
--- NOTE | 2023-10-11 22:29 | PN ---
Date of Progress Note: 10/11/2023 Time Of Service: 1:45 p.m. Subjective: Ms. Villanueva is in her room. She is very happy with her recovery from her stroke where wilver reeves has very little noticeable left-sided weakness from a right MCA stroke. She has no new complaints. Review of Systems: No fevers, chills, nausea, vomiting. No significant myalgias, arthralgias, rash, headache, or weight change. Physical Examination: Vital Signs: Blood pressure 121/65, pulse 68, respiratory rate 17, temperature 97.4, oxygen saturati on 94%. General: Ms. Villanueva is doing very well. Again, very little noticeable weakness on the left side. S he does have a right MCA stroke and again is recovering excellently as she does her therapy. Abdomen: Soft. Extremities: Show no significant clubbing, cyanosis, or edema. Laboratory Studies: No new laboratory studies. X-ray/imaging: No new x-rays or imaging. Medications: Have been reviewed and remain unchanged. Progress Made With Physical, Occupational, And Speech Therapy: Today with physical therapy, she mobi lized wheelchair 325 feet independently. She is able to complete steps, going up and down 15 steps w ith supervision. She has complete [id number]-bh-[id number] transfers with standby assistance. With occupational therapy, did supine to sit transfers and ambulated within the room to the toilet with a rolling walk er with supervision. Also, she did balance exercises and did that very well with physical therapist. Planning to have a shower in the morning. With speech pathology, she was able to recall 2 sets of 4 of 4 unrelated items after 5 minutes. She was independent for sequencing tasks with minimum assist ance. Ms. Villanueva made excellent progress in terms of recovery from her stroke. Assessment: Ms. Villanueva is an a 73-year-old patient in the rehabilitation unit with a right MCA strok e and much improved left upper and lower extremity weakness and numbness. She is making excellent pr ogress in physical, occupational, and speech therapy. Her comorbidites are hypertension, depression, insomnia, malnutrition, anemia, and GE reflux that are well managed. Plan: 1.Continue with physical, occupational, and speech therapy for 3.5 hours, 5 of 7 days. 2.She will continue with all medications including for DVT prophylaxis. Continue Coreg for heart ra te and blood pressure control. Lipitor for dyslipidemia. The Eliquis for DVT prophylaxis and stroke risk reduction. For malnutrition, Ensure Enlive. For muscle spasms, magnesium oxide. Losartan als o for management of blood pressure. Comorbidities That Are Impacting Rehabilitation: She has multiple comorbidities, which are stably ma naged and do not negatively impact her rehabilitation. LB/MODL Voice ID: [id number] Report ID: [id number]
[2023-10-12 08:27] LABS: Albumin 3.1 g/dL (3.4-5.0); Magnesium 2.2 mg/dL (1.6-2.4); Prealbumin 19.2 mg/dL (20-40)
[2023-10-12 08:28] LABS: Absolute Eosinophils 0.1 K/uL (0-0.5); Absolute Lymphocytes (CBC) 0.8 K/uL (0.7-4.9); Absolute Monocytes 0.3 K/uL (0.1-1.3); Absolute Neutrophil 5.5 K/uL (1.8-8.0); Basophils % 0.6 % (0-1.3); Eosinophils % 0.9 % (0-4.4); Hematocrit 36.1 % (36.0-45.0); Hemoglobin 12.3 g/dL (12.0-15.0); Lymphocytes % 11.3 % (15.3-44.8); MCH 30.7 pg (27.0-35.0); MCV 90.3 fL (80-100); Monocytes % 5.2 % (3.3-12.3); Platelets 181 thou/uL (152-406); RBC Red Blood Cell Count 3.99 M/uL (3.86-4.86)
[2023-10-12] MEDS: LIDOCAINE 4% PATCH TOP SCH (14:07)
--- NOTE | 2023-10-12 23:11 | PN ---
Date of Progress Note: 10/12/2023 Time Of Service: 1:50 p.m. Subjective: Ms. Villanueva is in her bed in between therapy sessions. She is very happy with therapy so far. She has no new complaints. Review of Systems: No fevers, chills, nausea, vomiting, myalgias, arthralgias, rash, headache, weight change. Physical Examination: Vital Signs: Blood pressure 132/68, pulse of 74, respiratory rate 16, temperature 96.9, oxygen satur ation 96%. General: Ms. Villanueva is resting comfortably. She does have a right MCA stroke, but has recovered exc ellently in terms of left upper and lower extremity numbness and weakness. She says there is a littl e numbness noted in the left fingertips otherwise. Lungs: Good air movement. Abdomen: Soft. Extremities: No clubbing, cyanosis, or edema. Laboratory Studies: Complete blood count with differential is normal except neutrophils slightly becca vated at 82 and lymphocytes 11.3. Sodium 137, potassium 4.0, chloride 105, carbon dioxide 31, BUN 14 , creatinine 0.64, glucose 147, calcium 8.8. Prealbumin improved from 12.7 on the 10th to 19.3 at 18 th. Albumin improved from 2.7 on the 10th to 3.1 on the 18th. Magnesium normal at 2.2. Calcium nor mal at 8.8. X-ray/imaging: No new x-rays or imaging. Medications: Medications have been reviewed and are continuing unchanged. She has Eliquis for DVT p rophylaxis and stroke risk reduction given atrial fibrillation. She has Lipitor for dyslipidemia, Co reg 12.5 mg twice daily for heart rate and blood pressure control, clonidine 0.1 mg for systolic grea ter than 170, Cozaar 25 mg twice daily, magnesium oxide 400 mg twice daily. She has Protonix, Paxil, potassium, Metamucil, and trazodone as well. Progress Made With Physical, Occupational, And Speech Therapy: Today with physical therapy, she was able to mobilize in her bed, turning excluding all independently. She ambulated 175 feet with a roll ing walker and with supervision. She was able to go up and down 15 steps independently. Mobilized w heelchair 325 feet independently. With occupational therapy, independent for bed mobility, sit-to-st and for toilet transfers twice. She transfers independently safely and all modalities. With speech, the patient increased her BIMS score from 13 to 15 and her SLUMS score from 19 to 23. Assessment: Ms. Villanueva is a 73-year-old patient in rehabilitation unit for right middle cerebral art claudia stroke for which she has recovered excellently. She has made great progress with physical, occup ational, and speech therapy. She has comorbid conditions, which are stable that do include hypertens ion, depression, insomnia, malnutrition, anemia, GE reflux, constipation. Plan: 1.For now continue with physical, occupational, and speech therapy 3.5 hours, 5 of 7 days. 2.All medications are continued as noted above and she is ready for her discharge in a day. Comorbidities That Are Impacting Rehabilitation: Multiple comorbid conditions do not negatively impa ct her rehabilitation as they are stably managed. JIMMY/JOHNATHAN Voice ID: [id number] Report ID: [id number]
[2023-10-13] MEDS ORDERED: LIDOCAINE 4% PATCH TOP SCH (08:00)
[2023-10-13 09:22] VITALS: BP 161/72
[2023-10-13 10:34] VITALS: TEMP 97.2
== END 2023-10-13 10:40 | disposition home health service (06) | DRG 57 ==
LOC: 5TH 15:50
PROVIDERS: ADMIT Psychiatry & Neurology Neurology with Special Qualifications in Child Neurology; ATTEND Psychiatry & Neurology Neurology with Special Qualifications in Child Neurology
PROC: 0HBRXZZ Excision of Toe Nail, External Approach (ICD-10-PCS; principal; 2023-10-09)
PROC: 0HBRXZZ Excision of Toe Nail, External Approach (ICD-10-PCS; 2023-10-09)
PROC: 0HBRXZZ Excision of Toe Nail, External Approach (ICD-10-PCS; 2023-10-09)
PROC: 0HBRXZZ Excision of Toe Nail, External Approach (ICD-10-PCS; 2023-10-09)
PROC: 0HBRXZZ Excision of Toe Nail, External Approach (ICD-10-PCS; 2023-10-09)
PROC: 0HBRXZZ Excision of Toe Nail, External Approach (ICD-10-PCS; 2023-10-09)
PROC: 0HBRXZZ Excision of Toe Nail, External Approach (ICD-10-PCS; 2023-10-09)
PROC: 0HBRXZZ Excision of Toe Nail, External Approach (ICD-10-PCS; 2023-10-09)
DX: I69.354 Hemiplegia and hemiparesis following cerebral infarction affecting left non-dominant side (principal); E46 Unspecified protein-calorie malnutrition; I69.322 Dysarthria following cerebral infarction; B35.1 Tinea unguium; L60.2 Onychogryphosis; E87.6 Hypokalemia; K59.00 Constipation, unspecified; G47.00 Insomnia, unspecified; M25.572 Pain in left ankle and joints of left foot; I10 Essential (primary) hypertension; I48.91 Unspecified atrial fibrillation; F32.A Depression, unspecified; K21.9 Gastro-esophageal reflux disease without esophagitis; I50.9 Heart failure, unspecified; Z68.23 Body mass index [BMI] 23.0-23.9, adult; Z79.01 Long term (current) use of anticoagulants
CPT/HCPCS: 36415; 80048; 81001; 82040; 83735; 84134; 85025; 87077; 87086; 87088; 87186; 92523; 97110; 97116; 97129; 97163; 97165; 97530; 97542; J2001